=== PATIENT | female | born 1930 | race Caucasian/White ===

== ENCOUNTER 2016-08-18 13:28 | Inpatient (IN) | payer OTHER, BC ==
[2016-08-18 14:06] VITALS: BMI 24.7
[2016-08-18] MEDS ORDERED: SODIUM CHLORIDE 1,000 ML IV STA (14:11)
[2016-08-18] MEDS ORDERED: ACETAMINOPHEN 1000 MG/100 ML VIAL (NON FORMULARY) IVPB ONE (14:13)
[2016-08-18] MEDS ORDERED: ACETAMINOPHEN INJECTION 100 ML IVPB ONE (14:16)
[2016-08-18 14:30] LABS: VENOUS BLOOD GAS HCO3 28.2 meq/L (19-25); VENOUS PH 7.49 (7.32-7.42)
--- NOTE | 2016-08-18 14:34 | PDOC ---
History of Present Illness - General Chief Complaint: Diarrhea Stated Complaint: DIARRHEA, FEVER Time Seen by Provider: 08/18/16 13:59 History Source: Care Provider, Old Records Exam Limitations: Dementia, Other (nonverbal) - History of Present Illness Initial Comments: 08/18/16 14:30 86-year-old female with history of hypertension, CVA, and history of pneumonia brought in by home health aide for diarrhea for 2-3 days and now fever diagnosed by visiting nurse services today. Patient was last in her usual state of health around for 5 days ago, home health aide was away and upon return noted and was having nonbloody diarrhea and was generally weaker than her baseline and more asleep. Today, had VNS visit and was found to be febrile and referred to the emergency department. Positive cough but nonproductive. Past History - Past Medical History Allergies/Adverse Reactions: Allergies Allergy/AdvReac Type Severity Reaction Status Date / Time Penicillins Allergy Verified 08/18/16 14:10 Home Medications: Ambulatory Orders Albuterol 2.5/Ipratropium 0.5 [Duoneb -] 1 neb NEB TIDR vial 11/27/14 Montelukast Na [Singulair -] 10 mg PO HS tablet 09/21/15 Folic Acid/Mv,Fe,Min [Centrum Chewable Tablet] 1 each PO DAILY 08/18/16 Melatonin 5 mg PO HS 08/18/16 Prednisone [Deltasone -] 5 mg PO DAILY 08/18/16 Sennosides [Senna -] 1 tab PO DAILY PRN 08/18/16 Trazodone HCl [Desyrel -] 50 mg PO HS 08/18/16 Anemia: Yes Asthma: Yes Cancer: No CVA: No Dementia: Yes Diabetes: Yes Disorders: No Hypercholesterolemia: No HIV: Yes Liver Disease: No Seizures: No Thyroid Disease: No - Surgical History Appendectomy: No Cholecystectomy: No Orthopedic Surgery: No - Psycho/Social/Smoking Cessation Hx Anxiety: No Suicidal Ideation: No Smoking Status: No Smoking History: Unknown if ever smoked Have you smoked in the past 12 months: No Number of Cigarettes Smoked Daily: 0 Information on smoking cessation initiated: No Hx Alcohol Use: No Drug/Substance Use Hx: No Substance Use Type: None Hx Substance Use Treatment: No Review of Systems - Review of Systems Able to Perform ROS?: No (nonverbal) *Physical Exam - Vital Signs Last Vital Signs Temp Pulse Resp BP Pulse Ox 101.1 F H 110 H 18 117/87 92 L 08/18/16 13:30 08/18/16 13:30 08/18/16 13:30 08/18/16 13:30 08/18/16 13:30 - Physical Exam Comments: 08/18/16 14:35 Fever, tachycardia, hypoxia GENERAL: nonverbal, alert in stretcher HEAD: Normal with no signs of trauma. EYES: PERRL, EOMI, sclera anicteric, conjunctiva clear with no pallor. ENT: oropharynx clear without exudates. Dry mucous membranes. NECK: Normal range of motion, supple without lymphadenopathy, JVD, or masses. LUNGS: decreased BS L base. HEART: Regular rate and rhythm, normal S1 and S2 without murmur or rub. ABDOMEN: Soft/nontender/nondistended. BS wnl. No guarding or rebound. No palpable masses. No hepatosplenomegaly. EXTREMITIES: LROM throughout. NEUROLOGICAL: limited but nonfocal PSYCH: Normal mood, normal affect. SKIN: Warm, Dry, no rashes or lesions noted. Heart Score/ECG Review #1 ECG reviewed & interpreted by me at: 13:48 General ECG Interpretation: Sinus Rhythm (tachycardia at 110.), Normal Intervals (qtc 446), No acute ischemic changes ED Treatment Course - LABORATORY CBC & Chemistry Diagram: 08/18/16 14:30 08/18/16 14:30 Medical Decision Making - Critical Care Time Total Critical Care Time (minutes): 30 Critical Care Statement: The care of this patient involved high complexity decision making to prevent further life threatening deterioration of the patient 's condition and/or to evalute & treat vital organ system(s) failure or risk of failure. - Medical Decision Making 08/18/16 14:40 86-year-old female with history of CVA, hypertension, pneumonia presents with diarrhea and now fever today. Meet sepsis criteria here, possible pneumonia, no recent admissions since 2016. Sepsis protocol initiated. EKG, chest x-ray Antipyretics, IV fluids Antibiotics Admission 08/18/16 15:37 Leukocytosis of 18, left shift but no bands. Chemistries within normal limits, troponin negative, lactate 1.5. Urinalysis clear. Chest x-ray suspicious for right lower lobe infiltrate. Will cover with Levaquin given penicillin ALLERGY. Clinically unchanged, will proceed with admission, Dr. Harris called. 08/18/16 15:50 Accepted for inpatient med/surg by Dr. Harris. *DC/Admit/Observation/Transfer Diagnosis at time of Disposition: Sepsis Qualifiers: Sepsis type: sepsis due to unspecified organism Qualified Code(s): A41.9 - Sepsis, unspecified organism Pneumonia Qualifiers: Pneumonia type: due to unspecified organism Laterality: right Lung location: lower lobe of lung Qualified Code(s): J18.1 - Lobar pneumonia, unspecified organism - Discharge Dispostion Condition at time of disposition: Fair Admit: Yes
[2016-08-18 14:56] LABS: BASOPHIL 0.1 % (0-2.0); EOSINOPHIL 0.1 % (0-4.5); MCH 29.1 pg (25.7-33.7); MCHC 32.7 g/dl (32.0-36.0); MEAN PLT VOLUME 9.5 fl (7.5-11.1); NEUTROPHILS 89.7 % (42.8-82.8); PLATELET COUNT 214 K/MM3 (134-434); RDW 16.1 % (11.6-15.6); WHITE BLOOD COUNT 18.7 K/mm3 (4.0-10.0)
[2016-08-18 15:13] LABS: URINE APPEARANCE SLCLOUDY; URINE BILIRUBIN NEGATIVE (NEGATIVE); URINE COLOR DKYELLOW; URINE GLUCOSE (UA) NEGATIVE (NEGATIVE); URINE KETONE NEGATIVE (NEGATIVE); URINE NITRITE NEGATIVE (NEGATIVE); URINE UROBILINOGEN NEGATIVE E.U./dl (0.2-1.0)
[2016-08-18 15:16] LABS: ALBUMIN 2.9 g/dl (3.4-5.0); ANION GAP 10 (8-16); BILIRUBIN,TOTAL 0.5 mg/dL (0.2-1.0); CALCIUM 8.8 mg/dL (8.5-10.1); CO2 29 mmol/L (21-32); COCKROFT - GAULT 58.8965; CREATININE 0.7 mg/dL (0.55-1.02); GLUCOSE,RANDOM 149 mg/dL (74-106); SGOT/AST 79 U/L (15-37); SGPT/ALT 88 U/L (12-78); TOT PROT 6.5 g/dl (6.4-8.2)
[2016-08-18 15:19] LABS: ALK PHOS 89 U/L (45-117); TROPONIN I < 0.02 ng/ml (0.00-0.05)
[2016-08-18 15:22] LABS: INR 1.16 (0.82-1.09); PROTHROMBIN TIME (PATIENT) 12.8 SEC (9.98-11.88)
[2016-08-18 15:24] LABS: URINE BLOOD 2+ (NEGATIVE); URINE LEUK ESTERASE TRACE (NEGATIVE); URINE PROTEIN 1+ (NEGATIVE)
[2016-08-18 15:25] LABS: ACTIVATED PTT 24.4 SECONDS (26.9-34.4)
[2016-08-18 15:30] LABS: GRANULAR CASTS 2 /lpf; URINE HYALINE CAST 2 /lpf; URINE MUCUS FEW; URINE RBC 40 /hpf (0-3); URINE WBC 7 /hpf (3-5)
[2016-08-18] MEDS ORDERED: LEVOFLOXACIN 500 MG IVPB 100 ML IVPB ONE ×2 (15:36→15:45)
[2016-08-18] MEDS: ALBUTEROL SO4 2.5/IPRATROPIUM 0.5 INH SOL 3 ML VIAL.NEB. NEB SCH (22:00)
[2016-08-18] MEDS: SODIUM CHLORIDE 0.45% 1,000 ML IV SCH (22:16)
[2016-08-18] MEDS: HEPARIN NA (PORCINE) 5,000 UNITS/ML 1ML VIAL SQ SCH (22:23)
[2016-08-19] MEDS: METRONIDAZOLE PREMIXED IVPB 50 ML IVPB SCH ×3 (01:18→18:32)
[2016-08-19] MEDS: methylPREDNISolone NA SUCC 40 MG/1 ML VIAL IVPB SCH ×2 (01:59→09:40)
[2016-08-19] MEDS ORDERED: ACETAMINOPHEN 325 MG TABLET (FP) PO PRN (05:56)
[2016-08-19] MEDS: ALBUTEROL SO4 2.5/IPRATROPIUM 0.5 INH SOL 3 ML VIAL.NEB. NEB SCH ×3 (06:10→22:04)
[2016-08-19 07:53] LABS: MCH 29.2 pg (25.7-33.7); MCHC 32.7 g/dl (32.0-36.0); MEAN CELL VOLUME 89.3 fl (80-96); MEAN PLT VOLUME 9.1 fl (7.5-11.1); PLATELET COUNT 165 K/MM3 (134-434); RDW 16.1 % (11.6-15.6); WHITE BLOOD COUNT 13.1 K/mm3 (4.0-10.0)
[2016-08-19 08:20] LABS: ALBUMIN 2.7 g/dl (3.4-5.0); ANION GAP 9 (8-16); CALCIUM 8.2 mg/dL (8.5-10.1); CO2 28 mmol/L (21-32); CREATININE 0.5 mg/dL (0.55-1.02); GLUCOSE,RANDOM 154 mg/dL (74-106); MAGNESIUM 2.4 mg/dL (1.8-2.4); SGOT/AST 47 U/L (15-37); SGPT/ALT 67 U/L (12-78)
[2016-08-19 08:31] LABS: ALK PHOS 74 U/L (45-117); BILIRUBIN,TOTAL 0.5 mg/dL (0.2-1.0); THYROID STIMULATING HORMONE 0.44 uIU/ml (0.358-3.74)
[2016-08-19] MEDS: LEVOFLOXACIN 250 MG IVPB 50 ML IVPB SCH (09:41)
[2016-08-19] MEDS: HEPARIN NA (PORCINE) 5,000 UNITS/ML 1ML VIAL SQ SCH ×2 (09:41→22:37)
--- NOTE | 2016-08-19 16:30 | HP ---
Admitting History and Physical - Primary Care Physician PCP: Israel Harris - Admission Chief Complaint: none History of Present Illness: BIBA from home (where she receives total care 24 x 7) for changes in MS and increased lethargy. due to severe cognitive impairment, she is unable to communicate her condition. Med Hx is (+) for DM (diet controlled); old RA (now inactive); OA; Asthma; s/p PNA. She is home ridden and is totally dependant in her daily living activities. She lives in the community. History Source: Medical Record Limitations to Obtaining History: Dementia - Past Medical History METAL MIXER: Yes: Dementia Cardiovascular: Yes: Other (hx of edema) Pulmonary: Yes: Asthma, Bronchitis Gastrointestinal: Yes: Hiatal Hernia, Other (feeding problems) Heme/Onc: Yes: Anemia Psych: Yes: Anxiety, Depression Musculoskeletal: Yes: Osteoarthritis Rheumatology: Yes: Rheumatoid Arthritis (in remission [on no meds]) Endocrine: Yes: Diabetes Mellitus (borderline) - Smoking History Smoking history: Unknown if ever smoked Have you smoked in the past 12 months: No Aproximately how many cigarettes per day: 0 - Alcohol/Substance Use Hx Alcohol Use: No History of Substance Use: reports: None - Social History Usual Living Arrangement: Yes: Alone ADL: Support Services History of Recent Travel: No Home Medications - Allergies Allergies/Adverse Reactions: Allergies Allergy/AdvReac Type Severity Reaction Status Date / Time Penicillins Allergy Verified 08/18/16 14:10 - Home Medications Home Medications: Ambulatory Orders Albuterol 2.5/Ipratropium 0.5 [Duoneb -] 1 neb NEB TIDR vial 11/27/14 Montelukast Na [Singulair -] 10 mg PO HS tablet 09/21/15 Folic Acid/Mv,Fe,Min [Centrum Chewable Tablet] 1 each PO DAILY 08/18/16 Melatonin 5 mg PO HS 08/18/16 Prednisone [Deltasone -] 5 mg PO DAILY 08/18/16 Sennosides [Senna -] 1 tab PO DAILY PRN 08/18/16 Trazodone HCl [Desyrel -] 50 mg PO HS 08/18/16 Physical Examination Vital Signs: Vital Signs Temperature 99.1 F 08/19/16 15:39 Pulse Rate 95 H 08/19/16 15:39 Respiratory Rate 18 08/19/16 15:39 Blood Pressure 96/57 08/19/16 15:39 O2 Sat by Pulse Oximetry (%) 98 08/19/16 14:12 Findings/Remarks: skin--no acute lesions head--NC eyes--midline; symmetric gaze and able to follow in all planes oral--unable to have her open mouth (clenches) neck--completely rigid; and immobile lungs--distant; unlabored heart--RR breasts--atrophic; no dom masses abd--soft, BS+, Nt, ND ext--no edema; rigid; increased tone; limited ROM; diffusely contracted; DPs faint; degen changes neuro--rousable to touch; able to visually acknowledge others, does not follow commands; does not respond verbally or otherwise, unable to move purposefully or otherwise Labs: CBC, BMP 08/19/16 06:00 08/19/16 06:00 Imaging - Results Chest X-ray: Report Reviewed EKG: Report Reviewed Assessment/Plan 86 y/o debilitated and totally dependant F in a veg state; who was admitted for Fever; leukocytosis and PNA. > Pna/sepsis--as described by CXR which would account for SX as described. PLAN : IV ABs; IV Steroids: Neb Tx > Asthma--no definite exacerbation; but will cont Neb Tx; will taper IV steroids > DM--not eating at present (does not allow to be fed); may need IV nutritional support but will wait at least 1 more day > severe dementia--advanced with severe cognitive impairment & complete dependance of all ADLs > elevated LFts--mild; now seem to be normalizing ~~~~~~~~~~~~~~~~~~~~~~~~~~~~~~~~~~~ Dr Harris
--- NOTE | 2016-08-19 17:29 | EKG ---
Test Reason : Blood Pressure : / mmHG Vent. Rate : 110 BPM Atrial Rate : 110 BPM P-R Int : 128 ms QRS Dur : 070 ms QT Int : 330 ms P-R-T Axes : 018 037 049 degrees QTc Int : 446 ms SINUS TACHYCARDIA OTHERWISE NORMAL ECG WHEN COMPARED WITH ECG OF 18-SEP-2015 18:48, NO SIGNIFICANT CHANGE WAS FOUND Confirmed by ANGÉLICA STEWART MD ([id number]) on 08/19/2016 5:29:24 PM Referred By: Confirmed By:ANGÉLICA STEWART MD
[2016-08-19] MEDS ORDERED: PT OWN MED DRAWER 7, Y5N ONE (18:09)
[2016-08-19] MEDS: SODIUM CHLORIDE 0.45% 1,000 ML IV SCH (18:32)
[2016-08-20] MEDS ORDERED: PT OWN MED DRAWER 7, Y5N ONE ×3 (03:21→21:27)
[2016-08-20] MEDS: ALBUTEROL SO4 2.5/IPRATROPIUM 0.5 INH SOL 3 ML VIAL.NEB. NEB SCH ×3 (06:35→22:09)
[2016-08-20 07:55] LABS: MCH 29.1 pg (25.7-33.7); MCHC 32.5 g/dl (32.0-36.0); MEAN CELL VOLUME 89.4 fl (80-96); MEAN PLT VOLUME 9.9 fl (7.5-11.1); PLATELET COUNT 189 K/MM3 (134-434); RDW 15.6 % (11.6-15.6); WHITE BLOOD COUNT 12.3 K/mm3 (4.0-10.0)
[2016-08-20 08:56] LABS: CALCIUM 8.3 mg/dL (8.5-10.1); COCKROFT - GAULT 97.2825; CREATININE 0.4 mg/dL (0.55-1.02)
[2016-08-20] MEDS: METRONIDAZOLE PREMIXED IVPB 50 ML IVPB SCH ×2 (09:29→18:39)
[2016-08-20] MEDS: methylPREDNISolone NA SUCC 40 MG/1 ML VIAL IVPB SCH (09:33)
[2016-08-20] MEDS: LEVOFLOXACIN 250 MG IVPB 50 ML IVPB SCH (09:33)
[2016-08-20] MEDS: HEPARIN NA (PORCINE) 5,000 UNITS/ML 1ML VIAL SQ SCH ×2 (09:33→22:36)
[2016-08-20] MEDS: SODIUM CHLORIDE 0.45% 1,000 ML IV SCH (18:39)
--- NOTE | 2016-08-20 18:52 | PN ---
Progress Note (short form) - Note Progress Note: Current Medications Acetaminophen (Tylenol -) 650 mg PO Q6H PRN PRN Reason: FEVER OR PAIN Albuterol/Ipratropium (Duoneb -) 1 amp NEB TIDR [facility] Last Admin: 08/20/16 13:51 Dose: 1 amp Heparin Sodium (Porcine) (Heparin -) 5,000 unit SQ BID [facility] Last Admin: 08/20/16 09:33 Dose: 5,000 unit Levofloxacin (Levaquin 250 Mg Premixed Ivpb -) 50 mls @ 50 mls/hr IVPB DAILY [facility] Last Admin: 08/20/16 09:33 Dose: 50 mls/hr Metronidazole (Flagyl 250mg Premixed Ivpb -) 50 mls @ 50 mls/hr IVPB Q8H-IV [facility] Last Admin: 08/20/16 18:39 Dose: 50 mls/hr Dextrose/Sodium Chloride (D5-1/4ns -) 1,000 mls @ 42 mls/hr IV ASDIR [facility] Methylprednisolone Sodium Succinate (Solu-Medrol -) 40 mg IVPB DAILY [facility] Last Admin: 08/20/16 09:33 Dose: 40 mg Montelukast Sodium (Singulair -) 10 mg PO HS [facility] Laboratory Results - last 24 hr 08/20/16 08/20/16 08/20/16 06:00 06:00 06:00 WBC 12.3 H RBC 4.26 Hgb 12.4 Hct 38.1 MCV 89.4 MCHC 32.5 RDW 15.6 Plt Count 189 MPV 9.9 Sodium 148 H Potassium 3.8 Chloride 113 H Carbon Dioxide 24 Anion Gap 11 BUN 26 H Creatinine 0.4 L Random Glucose 103 D Hemoglobin A1c % 6.1 H D Calcium 8.3 L Vital Signs Period Temp Pulse Resp BP Sys/Ford Pulse Ox Last 24 Hr 98.8 F-99.3 F 81-90 16-20 103-126/61-68 95-96 CC; non communicative ```````````````````````````` skin--no acute lesions heart--RR lungs--bilat clear; unlabored abd--soft, NT neuro--severe cogn impairement; does not interact; does not make needs known; does not move `````````````````````````````````````````````` Summ > Pna/sepsis--as described by CXR which would account for SX as described. 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 Needs total care. ~~~~~~~~~~~~~~~~~~~ Dr Harris
[2016-08-20] MEDS: DEXTROSE 5%-0.2% SALINE - 1,000 ML IV SCH (22:35)
[2016-08-20] MEDS: MONTELUKAST NA 5 MG TAB.CHEW PO SCH (22:45)
[2016-08-21] MEDS ORDERED: PT OWN MED DRAWER 7, Y5N ONE ×3 (01:09→21:56)
[2016-08-21] MEDS: METRONIDAZOLE PREMIXED IVPB 50 ML IVPB SCH ×3 (02:15→17:05)
[2016-08-21] MEDS: ALBUTEROL SO4 2.5/IPRATROPIUM 0.5 INH SOL 3 ML VIAL.NEB. NEB SCH ×3 (06:45→23:39)
[2016-08-21 07:39] LABS: BASOPHIL 0.2 % (0-2.0); MCH 29.2 pg (25.7-33.7); MCHC 32.9 g/dl (32.0-36.0); MEAN CELL VOLUME 88.7 fl (80-96); MEAN PLT VOLUME 10.1 fl (7.5-11.1); NEUTROPHILS 80.3 % (42.8-82.8); PLATELET COUNT 162 K/MM3 (134-434); RDW 15.6 % (11.6-15.6); WHITE BLOOD COUNT 9.4 K/mm3 (4.0-10.0)
[2016-08-21 08:00] LABS: CALCIUM 8.5 mg/dL (8.5-10.1)
[2016-08-21 08:01] LABS: COCKROFT - GAULT 129.71; CREATININE 0.3 mg/dL (0.55-1.02)
[2016-08-21] MEDS: HEPARIN NA (PORCINE) 5,000 UNITS/ML 1ML VIAL SQ SCH ×2 (09:13→22:55)
[2016-08-21] MEDS: methylPREDNISolone NA SUCC 40 MG/1 ML VIAL IVPB SCH (09:13)
[2016-08-21] MEDS: LEVOFLOXACIN 250 MG IVPB 50 ML IVPB SCH (09:13)
--- NOTE | 2016-08-21 15:36 | PN ---
Progress Note (short form) - Note Progress Note: Current Medications Acetaminophen (Tylenol -) 650 mg PO Q6H PRN PRN Reason: FEVER OR PAIN Albuterol/Ipratropium (Duoneb -) 1 amp NEB TIDR [facility] Last Admin: 08/21/16 14:27 Dose: 1 amp Heparin Sodium (Porcine) (Heparin -) 5,000 unit SQ BID [facility] Last Admin: 08/21/16 09:13 Dose: 5,000 unit Levofloxacin (Levaquin 250 Mg Premixed Ivpb -) 50 mls @ 50 mls/hr IVPB DAILY [facility] Last Admin: 08/21/16 09:13 Dose: 50 mls/hr Metronidazole (Flagyl 250mg Premixed Ivpb -) 50 mls @ 50 mls/hr IVPB Q8H-IV [facility] Last Admin: 08/21/16 09:13 Dose: 50 mls/hr Dextrose/Sodium Chloride (D5-1/4ns -) 1,000 mls @ 42 mls/hr IV ASDIR [facility] Last Admin: 08/20/16 22:35 Dose: 42 mls/hr Methylprednisolone Sodium Succinate (Solu-Medrol -) 40 mg IVPB DAILY [facility] Last Admin: 08/21/16 09:13 Dose: 40 mg Montelukast Sodium (Singulair -) 10 mg PO HS [facility] Last Admin: 08/20/16 22:45 Dose: 10 mg Laboratory Results - last 24 hr 08/21/16 08/21/16 06:00 06:00 WBC 9.4 RBC 3.87 Hgb 11.3 Hct 34.3 MCV 88.7 MCHC 32.9 RDW 15.6 Plt Count 162 MPV 10.1 Neutrophils % 80.3 Lymphocytes % 12.5 D Monocytes % 7.0 D Eosinophils % 0.0 D Basophils % 0.2 Sodium 147 H Potassium 3.6 Chloride 110 H Carbon Dioxide 26 Anion Gap 11 BUN 22 H Creatinine 0.3 L D Random Glucose 106 Calcium 8.5 Vital Signs Temperature 97.8 F 08/21/16 14:09 Pulse Rate 86 08/21/16 14:09 Respiratory Rate 20 08/21/16 14:09 Blood Pressure 109/64 08/21/16 14:09 O2 Sat by Pulse Oximetry (%) 96 08/21/16 09:00 CC; non communicative ```````````````````````````` skin--NL color heart--RR lungs--bilat clear; unlabored abd--soft, NT neuro--severe cogn impairement; does not interact; does not make needs known; does not move `````````````````````````````````````````````` Summ > Pna/sepsis--as described by CXR which would account for SX as described. 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 Needs total care. > sacral decub--very early stage; topical applied. ~~~~~~~~~~~~~~~~~~~ Dr Harris
[2016-08-21] MEDS: DEXTROSE 5%-0.2% SALINE - 1,000 ML IV SCH ×2 (18:02→23:17)
[2016-08-21] MEDS: MONTELUKAST NA 5 MG TAB.CHEW PO SCH (22:56)
[2016-08-22] MEDS: METRONIDAZOLE PREMIXED IVPB 50 ML IVPB SCH ×2 (01:14→12:50)
[2016-08-22] MEDS: ALBUTEROL SO4 2.5/IPRATROPIUM 0.5 INH SOL 3 ML VIAL.NEB. NEB SCH ×3 (06:11→22:30)
[2016-08-22 08:14] LABS: CALCIUM 8.5 mg/dL (8.5-10.1)
[2016-08-22 08:16] LABS: COCKROFT - GAULT 97.2825; CREATININE 0.4 mg/dL (0.55-1.02)
[2016-08-22] MEDS: HEPARIN NA (PORCINE) 5,000 UNITS/ML 1ML VIAL SQ SCH ×2 (12:04→22:42)
[2016-08-22] MEDS: methylPREDNISolone NA SUCC 40 MG/1 ML VIAL IVPB SCH (12:05)
[2016-08-22] MEDS: LEVOFLOXACIN 250 MG IVPB 50 ML IVPB SCH (12:05)
--- NOTE | 2016-08-22 13:37 | PN ---
Progress Note (short form) - Note Progress Note: Current Medications Acetaminophen (Tylenol -) 650 mg PO Q6H PRN PRN Reason: FEVER OR PAIN Albuterol/Ipratropium (Duoneb -) 1 amp NEB TIDR [facility] Last Admin: 08/22/16 06:11 Dose: 1 amp Heparin Sodium (Porcine) (Heparin -) 5,000 unit SQ BID [facility] Last Admin: 08/22/16 12:04 Dose: 5,000 unit Levofloxacin (Levaquin 250 Mg Premixed Ivpb -) 50 mls @ 50 mls/hr IVPB DAILY [facility] Last Admin: 08/22/16 12:05 Dose: 50 mls/hr Metronidazole (Flagyl 250mg Premixed Ivpb -) 50 mls @ 50 mls/hr IVPB Q8H-IV [facility] Last Admin: 08/22/16 12:50 Dose: 50 mls/hr Dextrose/Sodium Chloride (D5-1/4ns -) 1,000 mls @ 42 mls/hr IV ASDIR [facility] Last Admin: 08/21/16 23:17 Dose: 42 mls/hr Methylprednisolone Sodium Succinate (Solu-Medrol -) 20 mg IVPB DAILY [facility] Last Admin: 08/22/16 12:05 Dose: 20 mg Montelukast Sodium (Singulair -) 10 mg PO HS [facility] Last Admin: 08/21/16 22:56 Dose: 10 mg Laboratory Results - last 24 hr 08/22/16 06:00 Sodium 146 H Potassium 4.9 D Chloride 108 H Carbon Dioxide 31 Anion Gap 7 L BUN 16 D Creatinine 0.4 L D Random Glucose 115 H Calcium 8.5 Vital Signs Temperature 98.1 F 08/22/16 09:40 Pulse Rate 65 08/22/16 09:58 Respiratory Rate 18 08/22/16 09:40 Blood Pressure 131/51 08/22/16 09:40 O2 Sat by Pulse Oximetry (%) 97 08/22/16 09:58 CC; non communicative ```````````````````````````` skin--NL color heart--RR lungs--bilat clear; unlabored abd--soft, NT neuro--severe cogn impairement; does not interact; does not make needs known; does not move `````````````````````````````````````````````` Summ > Pna/sepsis--as described by CXR which now shows LLL haziness; but is clinically improved. 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 Needs total care. > sacral decub--very early stage; topical applied. ~~~~~~~~~~~~~~~~~~~ Dr Harris
[2016-08-22] MEDS: MONTELUKAST NA 5 MG TAB.CHEW PO SCH (22:42)
[2016-08-22] MEDS: DEXTROSE 5%-0.2% SALINE - 1,000 ML IV SCH (23:25)
[2016-08-23] MEDS: METRONIDAZOLE PREMIXED IVPB 50 ML IVPB SCH ×4 (02:40→19:44)
[2016-08-23] MEDS: ALBUTEROL SO4 2.5/IPRATROPIUM 0.5 INH SOL 3 ML VIAL.NEB. NEB SCH ×3 (06:17→21:50)
[2016-08-23 07:59] LABS: CALCIUM 8.2 mg/dL (8.5-10.1); COCKROFT - GAULT 129.71; CREATININE 0.3 mg/dL (0.55-1.02)
[2016-08-23] MEDS: HEPARIN NA (PORCINE) 5,000 UNITS/ML 1ML VIAL SQ SCH ×2 (10:30→22:09)
[2016-08-23] MEDS: LEVOFLOXACIN 250 MG IVPB 50 ML IVPB SCH (10:30)
[2016-08-23] MEDS: methylPREDNISolone NA SUCC 40 MG/1 ML VIAL IVPB SCH (10:31)
--- NOTE | 2016-08-23 15:27 | PN ---
Progress Note (short form) - Note Progress Note: Current Medications Acetaminophen (Tylenol -) 650 mg PO Q6H PRN PRN Reason: FEVER OR PAIN Albuterol/Ipratropium (Duoneb -) 1 amp NEB TIDR [facility] Last Admin: 08/23/16 14:10 Dose: 1 amp Heparin Sodium (Porcine) (Heparin -) 5,000 unit SQ BID [facility] Last Admin: 08/23/16 10:30 Dose: 5,000 unit Levofloxacin (Levaquin 250 Mg Premixed Ivpb -) 50 mls @ 50 mls/hr IVPB DAILY [facility] Last Admin: 08/23/16 10:30 Dose: 50 mls/hr Metronidazole (Flagyl 250mg Premixed Ivpb -) 50 mls @ 50 mls/hr IVPB Q8H-IV [facility] Last Admin: 08/23/16 10:26 Dose: 50 mls/hr Dextrose/Sodium Chloride (D5-1/4ns -) 1,000 mls @ 42 mls/hr IV ASDIR [facility] Last Admin: 08/22/16 23:25 Dose: 42 mls/hr Methylprednisolone Sodium Succinate (Solu-Medrol -) 20 mg IVPB DAILY [facility] Last Admin: 08/23/16 10:31 Dose: 20 mg Montelukast Sodium (Singulair -) 10 mg PO HS [facility] Last Admin: 08/22/16 22:42 Dose: 10 mg Laboratory Results - last 24 hr 08/23/16 05:35 Sodium 142 Potassium 4.6 Chloride 102 Carbon Dioxide 31 Anion Gap 9 BUN 12 D Creatinine 0.3 L D Random Glucose 102 Calcium 8.2 L Vital Signs Temperature 97.9 F 08/23/16 10:25 Pulse Rate 86 08/23/16 14:10 Respiratory Rate 18 08/23/16 10:25 Blood Pressure 119/71 08/23/16 10:25 O2 Sat by Pulse Oximetry (%) 98 08/23/16 14:10 CC; non communicative ```````````````````````````` skin--NL color heart--RR lungs--bilat clear; unlabored abd--soft, NT neuro--severe cogn impairement; awake and calm appearing; does not interact; does not make needs known; does not move any of her limbs `````````````````````````````````````````````` Summ > Pna/sepsis--as described by CXR which now shows LLL haziness; but is clinically improved. 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 Needs total care. > sacral decub--very early stage; topical adhesive applied. ~~~~~~~~~~~~~~~~~~~ Dr Harris
[2016-08-23] MEDS ORDERED: PT OWN MED DRAWER 7, Y5N ONE (21:41)
[2016-08-23] MEDS: DEXTROSE 5%-0.2% SALINE - 1,000 ML IV SCH (22:09)
[2016-08-23] MEDS: MONTELUKAST NA 5 MG TAB.CHEW PO SCH (22:09)
[2016-08-24] MEDS: DEXTROSE 5%-0.2% SALINE - 1,000 ML IV SCH ×2 (01:28→20:30)
[2016-08-24] MEDS: ALBUTEROL SO4 2.5/IPRATROPIUM 0.5 INH SOL 3 ML VIAL.NEB. NEB SCH ×3 (06:46→21:32)
[2016-08-24] MEDS ORDERED: predniSONE 5 MG/5 ML ORAL SOLN- UNIT-DOSE CUP PO ONE (10:00)
[2016-08-24] MEDS: LEVOFLOXACIN 250 MG TABLET (FP) PO SCH (10:18)
[2016-08-24] MEDS: HEPARIN NA (PORCINE) 5,000 UNITS/ML 1ML VIAL SQ SCH ×2 (10:18→22:14)
--- NOTE | 2016-08-24 17:17 | DS ---
Physical Examination Vital Signs: Vital Signs Temperature 98.6 F 08/24/16 15:42 Pulse Rate 78 08/24/16 15:42 Respiratory Rate 20 08/24/16 15:42 Blood Pressure 105/65 08/24/16 15:42 O2 Sat by Pulse Oximetry (%) 95 08/24/16 08:57 Constitutional: Yes: No Distress Eyes: Yes: Conjunctiva Clear Neck: Yes: Decreased ROM Cardiovascular: Yes: Regular Rate and Rhythm Respiratory: Yes: Diminished Gastrointestinal: Yes: Normal Bowel Sounds, Soft Musculoskeletal: Yes: Joint Stiffness Edema: No Integumentary: Yes: Pressure Ulcer (stage 2 buttock) Neurological: Yes: Alert, Confusion, Other (funct quadroplegia) Psychiatric: Yes: Other (awake, but cognitively impaired) Labs: CBC, BMP 08/21/16 06:00 08/23/16 05:35 Discharge Summary Reason For Visit: PNEUMONIA; SEPSIS Current Active Problems Pneumonia (Acute) Sepsis (Acute) asthma DM funct quadroplegia dementia; advanced decub sacrum stage 2 insomnia Hospital Course: admitted for fever; resp distress, leukocytosis. her degree of impairment would not provide us with any history of how she was feeling. She was placed on IV antibuiotics and fluids; she defervesced and the white cell count normalized. Her breathing becaume less labored; and steroids were tapered. The remaining problem was that of poor PO intake and the presence of sacral pressure sores; early stage. This was reported to son (marivel Merchant) who stated that she had a fulltime attendent in place at home 24 Hrs x 7. Also VNS would be called to provide added care & supervision. He was made aware of her feeding difficulty and sstated that no form of articial feeding should be put in place in accordance to her known wishes. Plan is for her to cont the antibiotic for another 7 days; and resume all other of her usual meds. Condition: Fair - Instructions Diet, Activity, Other Instructions: as tolerated Disposition: HOME - Home Medications Comprehensive Discharge Medication List: Ambulatory Orders Albuterol 2.5/Ipratropium 0.5 [Duoneb -] 1 neb NEB TIDR vial 11/27/14 Montelukast Na [Singulair -] 10 mg PO HS tablet 09/21/15 Folic Acid/Mv,Fe,Min [Centrum Chewable Tablet] 1 each PO DAILY 08/18/16 Melatonin 5 mg PO HS 08/18/16 Prednisone [Deltasone -] 5 mg PO DAILY 08/18/16 Sennosides [Senna -] 1 tab PO DAILY PRN 08/18/16 Trazodone HCl [Desyrel -] 50 mg PO HS 08/18/16
[2016-08-24] MEDS ORDERED: PT OWN MED DRAWER 7, Y5N ONE (21:36)
[2016-08-24] MEDS: MONTELUKAST NA 5 MG TAB.CHEW PO SCH (22:14)
[2016-08-25] MEDS: DEXTROSE 5%-0.2% SALINE - 1,000 ML IV SCH (00:41)
[2016-08-25] MEDS: ALBUTEROL SO4 2.5/IPRATROPIUM 0.5 INH SOL 3 ML VIAL.NEB. NEB SCH ×2 (07:00→14:05)
[2016-08-25] MEDS: LEVOFLOXACIN 250 MG TABLET (FP) PO SCH (09:18)
[2016-08-25] MEDS: HEPARIN NA (PORCINE) 5,000 UNITS/ML 1ML VIAL SQ SCH (09:18)
[2016-08-25 10:54] VITALS: BP 107/62; PULSE 81; TEMP 97.6
== END 2016-08-25 15:16 | disposition home or self-care (01) | DRG 871 ==
LOC: JER 13:28 → JERBED 15:51 → J7W 17:20
PROVIDERS: ADMIT Internal Medicine; ATTEND Internal Medicine
DX: A41.9 Sepsis, unspecified organism (principal); J18.9 Pneumonia, unspecified organism; R53.2 Functional quadriplegia; E87.0 Hyperosmolality and hypernatremia; J45.909 Unspecified asthma, uncomplicated; E11.9 Type 2 diabetes mellitus without complications; F03.90 Unspecified dementia, unspecified severity, without behavioral disturbance, psychotic disturbance, mood disturbance, and anxiety; L89.302 Pressure ulcer of unspecified buttock, stage 2; L89.152 Pressure ulcer of sacral region, stage 2; G47.00 Insomnia, unspecified; G31.84 Mild cognitive impairment of uncertain or unknown etiology
CPT/HCPCS: 36415; 71010-TC; 80048; 80053; 81003; 81015; 82550; 82803; 83036; 83605; 83735; 84443; 84484; 85025; 85027; 85610; 85730; 86850; 86900; 86901; 87040; 87086; 93005; 93010; 94640; 99285-25; J1644

== ENCOUNTER 2017-07-10 12:55 | Inpatient (IN) | payer OTHER ==
--- NOTE | 2017-07-10 13:17 | PDOC ---
History of Present Illness - General History Source: Care Provider, Family Exam Limitations: Dementia - History of Present Illness Initial Comments: 07/10/17 13:28 The patient is a 87 year old female, accompanied by son and caregiver, with a significant past medical history of dementia, asthma, hypertension, diabetes mellitus, hyperlipidemia, prior pneumonias and UTIs, rheumatoid arthritis, who presents to the emergency department with, non productive cough and wheezing beginning this morning. As per the patients caregiver, she noticed the patient had a dry cough and wheezing and reports giving the patient 2 nebulizer treatments with minimal relief. She states the patient received a flu shot earlier in the year and denies any sick contacts. No reported fevers, chills, nausea, vomiting, or diarrhea. Patient is unable to provide additional history second to dementia (pt. is nonverbal baseline status secondary to dementia since 2001 as per son). Allergies: Penicillins Primary Care Physician: Dr. Harris <Ernesto Robledo - Last Filed: 07/10/17 14:10> <Mira Kwon - Last Filed: 07/10/17 16:55> - General Stated Complaint: WHEEZING Time Seen by Provider: 07/10/17 13:10 Past History <Ernesto Robledo - Last Filed: 07/10/17 14:10> - Past Medical History Anemia: Yes Asthma: Yes Cancer: No CVA: Yes Dementia: Yes Diabetes: Yes Disorders: No HTN: Yes Hypercholesterolemia: No Liver Disease: No Seizures: No Thyroid Disease: No - Surgical History Appendectomy: No Cholecystectomy: No Orthopedic Surgery: No - Suicide/Smoking/Psychosocial Hx Smoking Status: No Smoking History: Unknown if ever smoked Have you smoked in the past 12 months: No Number of Cigarettes Smoked Daily: 0 Hx Alcohol Use: No Drug/Substance Use Hx: No Substance Use Type: None Hx Substance Use Treatment: No <Mira Kwon - Last Filed: 07/10/17 16:55> - Past Medical History Allergies/Adverse Reactions: Allergies Allergy/AdvReac Type Severity Reaction Status Date / Time No Known Allergies Allergy Verified 07/10/17 15:53 Home Medications: Ambulatory Orders Montelukast Na [Singulair -] 10 mg PO HS tablet 09/21/15 Sennosides [Senna -] 1 tab PO DAILY PRN 08/18/16 predniSONE [Deltasone -] 5 mg PO DAILY 08/18/16 Calcium Carbonate/Vitamin D3 [Calcium 500 + Vit D Caplet] 1 each PO DAILY Ipratropium [place] 0.5 mg NEB TID 07/10/17 Zolpidem Tartrate [Ambien] 5 mg PO HS 07/10/17 Review of Systems - Review of Systems Able to Perform ROS?: No (Secondary to dementia ) <Ernesto Robledo - Last Filed: 07/10/17 14:10> *Physical Exam - Physical Exam Comments: 07/10/17 13:30 GENERAL: Awake and alert. No acute distress. HEAD: No signs of trauma EYES: PERRLA, EOMI, sclera anicteric, conjunctiva clear ENT: Auricles normal inspection, hearing grossly normal, nares patent, oropharynx clear without exudates. Moist mucosa NECK: Normal ROM, supple, no lymphadenopathy, JVD, or masses LUNGS: (+) Wheezing diffusely. HEART: Regular rate and rhythm, normal S1 and S2, no murmurs, rubs or gallops ABDOMEN: Soft, nontender, normoactive bowel sounds. No guarding, no rebound. No masses EXTREMITIES: Normal range of motion, no edema. No clubbing or cyanosis. No cords, erythema, or tenderness NEUROLOGICAL: Cranial nerves II through XII grossly intact. SKIN: Warm, Dry, normal turgor, no rashes or lesions noted. <Ernesto Robledo - Last Filed: 07/10/17 14:10> Heart Score/ECG Review - ECG Intrepretation Comment:: 07/10/17 14:31 sinus at 92, nl axis, nl interval, baseline artifact, no acute st/t wave findings <Mira Kwon - Last Filed: 07/10/17 16:55> ED Treatment Course - RADIOLOGY Radiograph Interpretation: 07/10/17 14:10 EXAM#: TYPE/EXAM: RESULT: [id number] RAD/CHEST X-RAY PORTABLE* AP portable chest: Shortness of breath Since the prior study of 08/21/2016, again noted is a scoliosis with degenerative changes and possible old rotator cuff injuries. There is a prominent mediastinum with hiatal hernia and some basilar atelectatic changes with some minimal pleural reaction. The base changes have increased since the prior study. Soft tissues are intact. Correlation recommended. 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 Harris 07/10/17 16:[address] Harris - accepts pt to med/surg for iv abx <Mira Kwon - Last Filed: 07/10/17 16:55> *DC/Admit/Observation/Transfer - Attestations Scribe Attestion: 07/10/17 13:33 Documentation prepared by Ernesto Robledo, acting as medical cash poster for Mira Kwon DO. <Ernesto Robledo - Last Filed: 07/10/17 14:10> - Discharge Dispostion Admit: Yes - Attestations Physician Attestion: 07/10/17 16:55 I, Dr. Mira Kwon DO, attest that this document has been prepared under my direction and personally reviewed by me in its entirety. I further attest, that it accurately reflects all work, treatment, procedures and medical decision -making performed by me. <Mira Kwon - Last Filed: 07/10/17 16:55> Diagnosis at time of Disposition: Pneumonia - Discharge Dispostion Condition at time of disposition: Fair - Referrals Referrals: Israel Harris MD [Primary Care Provider] -
[2017-07-10] MEDS ORDERED: ALBUTEROL SO4 2.5/IPRATROPIUM 0.5 INH SOL 3 ML VIAL.NEB. NEB ONE ×5 (13:23→20:04)
[2017-07-10 13:51] VITALS: BMI 22.6
[2017-07-10 14:24] LABS: BASO % 0.3 % (0-2.0); HEMATOCRIT 37.8 % (32.4-45.2); HEMOGLOBIN 12.3 GM/dL (10.7-15.3); LYMPH % 9.6 % (8-40); MCHC 32.5 g/dl (32.0-36.0); MEAN CELL VOLUME 89.2 fl (80-96); MEAN PLT VOLUME 9.3 fl (7.5-11.1); MONO % 3.4 % (3.8-10.2); NEUT % 86.7 % (42.8-82.8); PLATELET COUNT 246 K/MM3 (134-434); RBC 4.23 M/mm3 (3.60-5.2); RDW 15.7 % (11.6-15.6); WHITE BLOOD COUNT 12.3 K/mm3 (4.0-10.0)
[2017-07-10 14:36] LABS: INR 0.96 (0.82-1.09); PROTHROMBIN TIME (PATIENT) 10.8 SEC (9.98-11.88)
[2017-07-10 14:49] LABS: ALBUMIN 3.4 g/dl (3.4-5.0); ANION GAP 11 (8-16); BILIRUBIN,TOTAL 0.2 mg/dL (0.2-1.0); BLOOD UREA NITROGEN 17 mg/dL (7-18); CALCIUM 8.9 mg/dL (8.5-10.1); CHLORIDE 103 mmol/L (98-107); CO2 29 mmol/L (21-32); CREATININE 0.5 mg/dL (0.55-1.02); GLUCOSE,RANDOM 151 mg/dL (74-106); MAGNESIUM 2.5 mg/dL (1.8-2.4); POTASSIUM 4.2 mmol/L (3.5-5.1); SGOT/AST 37 U/L (15-37); SGPT/ALT 54 U/L (12-78); SODIUM 143 mmol/L (136-145); TOT PROT 7.7 g/dl (6.4-8.2)
[2017-07-10 14:51] LABS: ALK PHOS 102 U/L (45-117)
[2017-07-10] MEDS ORDERED: SODIUM CHLORIDE 0.9% 1000 ML INFUS.BAG IV ONE ×2 (15:01→16:56)
[2017-07-10 15:16] LABS: N-TERMINAL BNP 256.53 pg/ml (5-450)
[2017-07-10] MEDS ORDERED: cefTRIAXone 1 GM/50 ML BAG (PRE-DOCKED) IVPB ONE (16:21)
[2017-07-10] MEDS ORDERED: AZITHROMYCIN IVPB 500 MG in DEXTROSE 5%-WATER - 250 ML IVPB ONE (16:21)
[2017-07-10] MEDS ORDERED: CEFTRIAXONE 1 GM/50 ML BAG ONE (16:30)
[2017-07-10] MEDS ORDERED: AZITHROMYCIN IVPB 250 ML IVPB ONE (16:30)
--- NOTE | 2017-07-10 17:22 | HP ---
Admitting History and Physical - Primary Care Physician PCP: Israel Harris - Admission Chief Complaint: coughing History of Present Illness: 87 year old functional-quadroplegic homebound female, (accompanied by son and caregiver) with a significant past medical history of advanced dementia, asthma , hypertension, mild diabetes mellitus, hyperlipidemia, prior pneumonias and UTIs, (burned out)rheumatoid arthritis, who presents to the emergency department with, non productive cough and wheezing beginning this morning. As per the patients caregiver, she gave the patient 2 nebulizer treatments with minimal relief. She states the patient received a flu shot earlier in the year and denies any sick contacts. No reported fevers, chills, nausea, vomiting, or diarrhea. Patient is unable to provide additional history second to dementia ( pt. is nonverbal baseline status secondary to dementia since 2001 as per son). She resides at home with 24 x 7 attendant who assists her with all daily living functions. History Source: Medical Record Limitations to Obtaining History: Dementia - Past Medical History INDIVIDUAL PENSION CONSULTANT: Yes: Dementia Cardiovascular: Yes: Other (hx of edema) Pulmonary: Yes: Asthma, Bronchitis Gastrointestinal: Yes: Hiatal Hernia, Other (feeding problems) Heme/Onc: Yes: Anemia Psych: Yes: Anxiety, Depression Musculoskeletal: Yes: Osteoarthritis Rheumatology: Yes: Rheumatoid Arthritis (in remission [on no meds]) Endocrine: Yes: Diabetes Mellitus (borderline) - Smoking History Smoking history: Unknown if ever smoked Have you smoked in the past 12 months: No Aproximately how many cigarettes per day: 0 - Alcohol/Substance Use Hx Alcohol Use: No History of Substance Use: reports: None - Social History Usual Living Arrangement: Yes: Other (attendant) ADL: Support Services History of Recent Travel: No Home Medications - Allergies Allergies/Adverse Reactions: Allergies Allergy/AdvReac Type Severity Reaction Status Date / Time No Known Allergies Allergy Verified 07/10/17 15:53 - Home Medications Home Medications: Ambulatory Orders Montelukast Na [Singulair -] 10 mg PO HS tablet 09/21/15 Sennosides [Senna -] 1 tab PO DAILY PRN 08/18/16 predniSONE [Deltasone -] 5 mg PO DAILY 08/18/16 Calcium Carbonate/Vitamin D3 [Calcium 500 + Vit D Caplet] 1 each PO DAILY Ipratropium [place] 0.5 mg NEB TID 07/10/17 Zolpidem Tartrate [Ambien] 5 mg PO HS 07/10/17 Family Disease History - Family Disease History Family History: Unremarkable Review of Systems Findings/Remarks: unable to obtain due to muted stated resulting from advanced dementia Physical Examination Vital Signs: Vital Signs Temperature 98.4 F 07/10/17 13:42 Pulse Rate 95 H 07/10/17 13:42 Respiratory Rate 18 07/10/17 13:42 Blood Pressure 130/72 07/10/17 13:42 O2 Sat by Pulse Oximetry (%) 95 07/10/17 13:42 Findings/Remarks: skin--facial flushing head--NC eyes--midline; able to focus on others and follow ears--seems to be able to hear spoken voice neck--rigid lungs--bilat rhonchi; wheezes heart--rr distant breast--atrophic abd--distended; NT rectum--with pasty brown stool; no blood back--sacral redness with some small skin oppenings --NL external female anatomy ext--degen changes throughout; very limited ROM; no shantel or soft tissue tenderness; no gross ischemic changes of the LE's neuro--awake; catatonic-like; cognition severely impaired, but seems to be aware of others; face is expression-less; unable to speak or understand; does not make needs known; does not follow commands; does not move limbs purposefully or otherwise Labs: CBC, BMP 07/10/17 14:05 07/10/17 14:05 Laboratory Tests 07/10/17 07/10/17 07/10/17 14:05 14:05 14:05 WBC RBC Hgb Hct MCV MCH MCHC RDW Plt Count MPV Neutrophils % Lymphocytes % Monocytes % Eosinophils % Basophils % PT with INR 10.80 INR 0.96 PTT (Actin FS) 28.0 Sodium 143 Potassium 4.2 Chloride 103 Carbon Dioxide 29 Anion Gap 11 BUN 17 Creatinine 0.5 L Creat Clearance w eGFR > 60 Random Glucose 151 H Lactic Acid 2.8 H* Calcium 8.9 Magnesium 2.5 H Total Bilirubin 0.2 D AST 37 ALT 54 Alkaline Phosphatase 102 Creatine Kinase 28 Troponin I < 0.02 B-Natriuretic Peptide 256.53 Total Protein 7.7 Albumin 3.4 07/10/17 14:05 WBC 12.3 H D RBC 4.23 Hgb 12.3 Hct 37.8 MCV 89.2 MCH 29.0 MCHC 32.5 RDW 15.7 H Plt Count 246 D MPV 9.3 Neutrophils % 86.7 H Lymphocytes % 9.6 D Monocytes % 3.4 L Eosinophils % 0.0 Basophils % 0.3 PT with INR INR PTT (Actin FS) Sodium Potassium Chloride Carbon Dioxide Anion Gap BUN Creatinine Creat Clearance w eGFR Random Glucose Lactic Acid Calcium Magnesium Total Bilirubin AST ALT Alkaline Phosphatase Creatine Kinase Troponin I B-Natriuretic Peptide Total Protein Albumin Imaging - Results Chest X-ray: Report Reviewed Cat Scan: Report Reviewed EKG: Report Reviewed Problem List - Problems (1) Acute asthma exacerbation Assessment/Plan: unresponsive to neb Tx at home. Perhaps 2nd to infective lung process or even possible aspiration. PLAN: supp Tx; Neb Tx; IV steroids; Abs Code(s): J45.901 - UNSPECIFIED ASTHMA WITH (ACUTE) EXACERBATION Qualifiers: Asthma severity: moderate Asthma persistence: persistent Qualified Code(s ): J45.41 - Moderate persistent asthma with (acute) exacerbation (2) Pneumonia Assessment/Plan: as per CT scan description. PLAN: neb TX; Abs Code(s): J18.9 - PNEUMONIA, UNSPECIFIED ORGANISM Qualifiers: Pneumonia type: due to unspecified organism Laterality: right Lung location: unspecified part of lung Qualified Code(s): J18.9 - Pneumonia, unspecified organism (3) Diabetes Assessment/Plan: longstanding; have never needed diabetic meds; will check BGMs, and A1c Code(s): E11.9 - TYPE 2 DIABETES MELLITUS WITHOUT COMPLICATIONS Qualifiers: Diabetes mellitus type: type 2 Diabetes mellitus complication status: with neurologic complications Diabetes mellitus complication detail: with other neurological complication (4) Hiatal hernia with gastroesophageal reflux Assessment/Plan: not new; could contribute to possible aspiration. Code(s): K21.9 - GASTRO-ESOPHAGEAL REFLUX DISEASE WITHOUT ESOPHAGITIS; K44.9 - DIAPHRAGMATIC HERNIA WITHOUT OBSTRUCTION OR GANGRENE (5) Leukocytosis Assessment/Plan: very likely 2nd acute state of asthmatic exacerb & state of infection Code(s): D72.829 - ELEVATED WHITE BLOOD CELL COUNT, UNSPECIFIED Qualifiers: Leukocytosis type: unspecified Qualified Code(s): D72.829 - Elevated white blood cell count, unspecified (6) Decubitus ulcer of sacral region, stage 1 Assessment/Plan: will order a protective patch Code(s): L89.151 - PRESSURE ULCER OF SACRAL REGION, STAGE 1 (7) Mobility impaired Assessment/Plan: in all regards; needs full ADL support Code(s): Z74.09 - OTHER REDUCED MOBILITY (8) Vegetative state Assessment/Plan: as described Code(s): R40.3 - PERSISTENT VEGETATIVE STATE (9) History of rheumatoid arthritis Assessment/Plan: disease is no longer active Code(s): Z87.39 - PERSONAL HISTORY OF DISEASES OF THE MS SYS AND CONN TISS (10) Degenerative arthritis Assessment/Plan: diffuse; longstanding, contributing to limited ROM Code(s): M19.90 - UNSPECIFIED OSTEOARTHRITIS, UNSPECIFIED SITE Qualifiers: Osteoarthritis type: unspecified Laterality: bilateral (11) Needs assistance while at home Assessment/Plan: need to resume home services upon discharge Code(s): Z74.2 - NEED FOR ASSIST AT HOME & NO HOUSE MEMB ABLE TO RENDER CARE Assessment/Plan ill appearing 87 year old female, with acute respiratory distress due to asthmatic attack 2nd infective state; who is unable to make needs met and requires full ADL assistence. ~~~~~~~~~~~~~~~~~~~~~~ Dr Harris
[2017-07-10] MEDS ORDERED: DEXTROSE 5%-0.45% SALINE 1,000 ML IV SCH (18:00)
[2017-07-10] MEDS ORDERED: methylPREDNISolone NA SUCC 40 MG/1 ML VIAL ONE (19:56)
[2017-07-10] MEDS: methylPREDNISolone NA SUCC 125 MG/2 ML VIAL IVPB SCH (20:05)
[2017-07-10] MEDS: ALBUTEROL SO4 2.5/IPRATROPIUM 0.5 INH SOL 3 ML VIAL.NEB. NEB SCH (20:10)
--- NOTE | 2017-07-10 21:18 | EKG ---
Test Reason : Blood Pressure : / mmHG Vent. Rate : 092 BPM Atrial Rate : 092 BPM P-R Int : 154 ms QRS Dur : 072 ms QT Int : 354 ms P-R-T Axes : 024 038 032 degrees QTc Int : 437 ms POOR DATA QUALITY, INTERPRETATION MAY BE ADVERSELY AFFECTED NORMAL SINUS RHYTHM NORMAL ECG WHEN COMPARED WITH ECG OF 18-AUG-2016 13:48, NO SIGNIFICANT CHANGE WAS FOUND Confirmed by ANTHONY RICO MD ([id number]) on 07/10/2017 9:18:10 PM Referred By: Confirmed By:ANTHONY RICO MD
[2017-07-10 23:14] LABS: URINE APPEARANCE CLEAR; URINE BILIRUBIN NEGATIVE (<2.0 mg/dL); URINE BLOOD 1+ (NEGATIVE); URINE COLOR STRAW; URINE GLUCOSE (UA) 1+ (NEGATIVE); URINE KETONE NEGATIVE (NEGATIVE); URINE LEUK ESTERASE TRACE (NEGATIVE); URINE NITRITE NEGATIVE (NEGATIVE); URINE PROTEIN NEGATIVE (NEGATIVE); URINE UROBILINOGEN NEGATIVE mg/dL (0.2-1.0)
[2017-07-10 23:25] LABS: URINE BACTERIA RARE /hpf (NONE SEEN); URINE MUCUS RARE
[2017-07-11] MEDS ORDERED: methylPREDNISolone NA SUCC 40 MG/1 ML VIAL ONE (00:53)
[2017-07-11] MEDS: methylPREDNISolone NA SUCC 125 MG/2 ML VIAL IVPB SCH (02:41)
[2017-07-11] MEDS: ALBUTEROL SO4 2.5/IPRATROPIUM 0.5 INH SOL 3 ML VIAL.NEB. NEB SCH ×4 (07:35→20:24)
[2017-07-11 08:08] LABS: HEMATOCRIT 36.3 % (32.4-45.2); HEMOGLOBIN 12.1 GM/dL (10.7-15.3); MCH 29.6 pg (25.7-33.7); MCHC 33.3 g/dl (32.0-36.0); MEAN PLT VOLUME 9.2 fl (7.5-11.1); PLATELET COUNT 223 K/MM3 (134-434); RBC 4.07 M/mm3 (3.60-5.2); RDW 15.4 % (11.6-15.6); WHITE BLOOD COUNT 6.9 K/mm3 (4.0-10.0)
[2017-07-11 08:56] LABS: ANION GAP 6 (8-16); BLOOD UREA NITROGEN 8 mg/dL (7-18); CALCIUM 8.7 mg/dL (8.5-10.1); CHLORIDE 109 mmol/L (98-107); CO2 28 mmol/L (21-32); CREATININE 0.6 mg/dL (0.55-1.02); GLUCOSE,RANDOM 167 mg/dL (74-106); POTASSIUM 4.5 mmol/L (3.5-5.1); SODIUM 143 mmol/L (136-145)
[2017-07-11] MEDS ORDERED: ENOXAPARIN NA (PORCINE) 30 MG/0.3 ML DISP.SYRIN SQ SCH (10:00)
[2017-07-11] MEDS ORDERED: PT OWN MED DRAWER 7, Y5N ONE (10:02)
[2017-07-11] MEDS: methylPREDNISolone NA SUCC 125 MG/2 ML VIAL IVPUSH SCH ×2 (10:06→17:47)
[2017-07-11] MEDS: ENOXAPARIN NA (PORCINE) 40 MG/0.4 ML DISP.SYRIN SQ SCH (10:06)
[2017-07-11] MEDS ORDERED: SODIUM CHLORIDE 250 ML IV ONE (10:30)
--- NOTE | 2017-07-11 11:15 | PN ---
Progress Note (short form) - Note Progress Note: ID Consult dictated RLL pneumonia Possible sepsis secondary to pneumonia Acute exacerbation, asthma Lactic acidosis PCN allergy OBS Pending c/s empiric ceftriaxone/ zithromax
[2017-07-11] MEDS ORDERED: ALBUTEROL SO4 0.083% IH SOL 2.5 MG/3 ML VIAL.NEB. NEB ONE (12:02)
--- NOTE | 2017-07-11 12:35 | CONS ---
DATE OF CONSULTATION: HISTORY: The patient is an 87-year-old female with a history of dementia who was evaluated for right lower lobe pneumonia. She was admitted to the hospital on July 10, 2017 with a 1-day history of worsening dyspnea, wheeze, and nonproductive cough. She lives at home and has a home health aide. She was noted to be congested and wheezing. She was given nebulizer treatments without improvement. The patient presented to the emergency room where she was noted to have an elevated white blood cell count and lactic acidosis. CAT scan showed a right lower lobe infiltrate as well as bibasilar atelectasis with possible small effusions. She was empirically treated with ceftriaxone. At the present time, she is awake; however, she is not verbally responsive. She does not appear to be in acute respiratory distress. The patient lives at home with a home health aide. Her last hospitalization here was in August 2016. PAST MEDICAL HISTORY: Positive for longstanding dementia, bronchial asthma, rheumatoid arthritis, hypertension, hyperlipidemia, diabetes mellitus, urinary tract infections. ALLERGIES: PENICILLIN. Nature of this allergy not known. MEDICATIONS: Include Singulair, prednisone, Ambien. SOCIAL HISTORY: Lives at home. Has a home health aide. No documented tobacco or alcohol use history. According to the notes, longstanding dementia dating back to 2001. SYSTEMS REVIEW: Neurologic: Positive for dementia. Cardiac: Negative chest pain or palpitations. Respiratory: As per HPI. Gastrointestinal: Negative vomiting or diarrhea. Genitourinary: Negative for urinary tract infection. LABORATORY DATA: White count on admission 12.3, hematocrit 36.3, platelet count 223, BUN 8, creatinine 0.6. CAT scan shows right lower lobe infiltrate with bibasilar atelectasis and possible small effusions. Lactic acid 5.4. Urinalysis 8 white cells. Influenza swab negative. PHYSICAL EXAMINATION: General: The patient is awake but not verbally responsive. Her breathing is nonlabored. Vital Signs: Temperature 98.4, blood pressure 146/64, pulse 84 and regular, respirations 20 per minute. HEENT: Sclerae anicteric. Heart: Sounds S1, S2. Lungs: Scattered rhonchi with bilateral mild end-expiratory wheeze. Abdomen: Soft, obese, distended. No tenderness elicited. No mass, rebound, or rigidity. Extremities: Negative for pedal edema. She has deforming arthritis of the hands bilaterally and contractures of the upper extremities. IMPRESSION: 1. Right lower lobe community-acquired versus atypical pneumonia. 2. Possible sepsis secondary to pneumonia. 3. Lactic acidosis. 4. Acute exacerbation bronchial asthma. 5. PENICILLIN allergy. 6. Dementia. PLAN: Pending cultures, empiric antibiotic coverage with ceftriaxone and Zithromax. Await sputum culture, urine Legionella antigen. Bronchodilators. We will follow. Thank you for the kind referral. TAMIKA HAND M.D. [id number]
[2017-07-11] MEDS: CEFTRIAXONE 1,000 MG in DEXTROSE 5%-WATER - 50 ML IVPB SCH (13:12)
--- NOTE | 2017-07-11 14:34 | PN ---
Progress Note (short form) - Note Progress Note: ############# medical ############# Current Medications Albuterol/Ipratropium (Duoneb -) 1 amp NEB RTID [facility] Last Admin: 07/11/17 12:15 Dose: 1 amp Enoxaparin Sodium (Lovenox -) 40 mg SQ DAILY [facility] Last Admin: 07/11/17 10:06 Dose: 40 mg Dextrose/Sodium Chloride (D5-1/2ns -) 1,000 mls @ 42 mls/hr IV ASDIR [facility] Last Admin: 07/10/17 20:00 Dose: 42 mls/hr Ceftriaxone Sodium 1,000 mg/ (Dextrose) 50 mls @ 100 mls/hr IVPB DAILY [facility] Last Admin: 07/11/17 13:12 Dose: 100 mls/hr Azithromycin 500 mg/ Dextrose 250 mls @ 250 mls/hr IVPB DAILY [facility] Methylprednisolone Sodium Succinate (Solu-Medrol -) 80 mg IVPUSH Q8H-IV [facility] Last Admin: 07/11/17 10:06 Dose: 80 mg Laboratory Results - last 24 hr 07/10/17 07/10/17 07/10/17 14:05 14:05 14:05 WBC RBC Hgb Hct MCV MCH MCHC RDW Plt Count MPV PT with INR 10.80 INR 0.96 PTT (Actin FS) 28.0 Sodium 143 Potassium 4.2 Chloride 103 Carbon Dioxide 29 Anion Gap 11 BUN 17 Creatinine 0.5 L Creat Clearance w eGFR > 60 Random Glucose 151 H Hemoglobin A1c % Lactic Acid 2.8 H* Calcium 8.9 Magnesium 2.5 H Total Bilirubin 0.2 D AST 37 ALT 54 Alkaline Phosphatase 102 Creatine Kinase 28 Troponin I < 0.02 B-Natriuretic Peptide 256.53 Total Protein 7.7 Albumin 3.4 TSH Urine Color Urine Appearance Urine pH Ur Specific [place] Urine Protein Urine Glucose (UA) Urine Ketones Urine Blood Urine Nitrite Urine Bilirubin Urine Urobilinogen Ur Leukocyte Esterase Urine WBC (Auto) Urine RBC (Auto) Urine Bacteria Urine Mucus 07/10/17 07/10/17 07/11/17 14:05 23:00 07:00 WBC 6.9 D RBC 4.07 Hgb 12.1 Hct 36.3 MCV 89.0 MCH 29.6 MCHC 33.3 RDW 15.4 Plt Count 223 MPV 9.2 PT with INR INR PTT (Actin FS) Sodium Potassium Chloride Carbon Dioxide Anion Gap BUN Creatinine Creat Clearance w eGFR Random Glucose Hemoglobin A1c % 6.3 H Lactic Acid Calcium Magnesium Total Bilirubin AST ALT Alkaline Phosphatase Creatine Kinase Troponin I B-Natriuretic Peptide Total Protein Albumin TSH Urine Color Straw Urine Appearance Clear Urine pH 5.0 Ur Specific [place] 1.010 Urine Protein Negative Urine Glucose (UA) 1+ H Urine Ketones Negative Urine Blood 1+ H Urine Nitrite Negative Urine Bilirubin Negative Urine Urobilinogen Negative Ur Leukocyte Esterase Trace Urine WBC (Auto) 8 Urine RBC (Auto) 1 Urine Bacteria Rare Urine Mucus Rare 07/11/17 07/11/17 07:00 07:00 WBC RBC Hgb Hct MCV MCH MCHC RDW Plt Count MPV PT with INR INR PTT (Actin FS) Sodium 143 Potassium 4.5 Chloride 109 H Carbon Dioxide 28 Anion Gap 6 L BUN 8 Creatinine 0.6 Creat Clearance w eGFR Random Glucose 167 H Hemoglobin A1c % Lactic Acid 5.4 H* Calcium 8.7 Magnesium Total Bilirubin AST ALT Alkaline Phosphatase Creatine Kinase Troponin I B-Natriuretic Peptide Total Protein Albumin TSH 0.35 L Urine Color Urine Appearance Urine pH Ur Specific [place] Urine Protein Urine Glucose (UA) Urine Ketones Urine Blood Urine Nitrite Urine Bilirubin Urine Urobilinogen Ur Leukocyte Esterase Urine WBC (Auto) Urine RBC (Auto) Urine Bacteria Urine Mucus Vital Signs Temperature 98.4 F 07/11/17 01:48 Pulse Rate 84 07/11/17 01:48 Respiratory Rate 20 07/11/17 01:48 Blood Pressure 146/64 07/11/17 01:48 O2 Sat by Pulse Oximetry (%) 97 07/10/17 20:00 CC: non communicative ```````````````````` skin--flushed heart--RR lungs--no wheezing abd--distended, NT ext--diffuse contractures, no CCE, pulses not felt neuro--awake; severe cogn impairment `````````````````````````````````` Summ > asthmatic exacerb--less wheezing at this time, but had more wheezing this AM. PLAN: cont IV steroids; Neb Tx > PNA--Rt side; unable to obtain sputum; not coughing productively. PLAN IV ABs as per ID > Low TSH--check T4 > HIgh Lactate--improved post IV bolus; up IVF rate > DM--a1c is 6.3; will check BGMs > dementia--severe; cogn & physical impairment ~~~~~~~~~~~~~~~~~~~~~~~~~ Dr Harris Problem List - Problems (1) Acute asthma exacerbation Code(s): J45.901 - UNSPECIFIED ASTHMA WITH (ACUTE) EXACERBATION Qualifiers: Asthma severity: moderate Asthma persistence: persistent Qualified Code(s ): J45.41 - Moderate persistent asthma with (acute) exacerbation (2) Pneumonia Code(s): J18.9 - PNEUMONIA, UNSPECIFIED ORGANISM Qualifiers: Pneumonia type: due to unspecified organism Laterality: right Lung location: unspecified part of lung Qualified Code(s): J18.9 - Pneumonia, unspecified organism (3) Diabetes Code(s): E11.9 - TYPE 2 DIABETES MELLITUS WITHOUT COMPLICATIONS Qualifiers: Diabetes mellitus type: type 2 Diabetes mellitus complication status: with neurologic complications Diabetes mellitus complication detail: with other neurological complication (4) Hiatal hernia with gastroesophageal reflux Code(s): K21.9 - GASTRO-ESOPHAGEAL REFLUX DISEASE WITHOUT ESOPHAGITIS; K44.9 - DIAPHRAGMATIC HERNIA WITHOUT OBSTRUCTION OR GANGRENE (5) Leukocytosis Code(s): D72.829 - ELEVATED WHITE BLOOD CELL COUNT, UNSPECIFIED Qualifiers: Leukocytosis type: unspecified Qualified Code(s): D72.829 - Elevated white blood cell count, unspecified (6) Decubitus ulcer of sacral region, stage 1 Code(s): L89.151 - PRESSURE ULCER OF SACRAL REGION, STAGE 1 (7) Mobility impaired Code(s): Z74.09 - OTHER REDUCED MOBILITY (8) Vegetative state Code(s): R40.3 - PERSISTENT VEGETATIVE STATE (9) History of rheumatoid arthritis Code(s): Z87.39 - PERSONAL HISTORY OF DISEASES OF THE MS SYS AND CONN TISS (10) Degenerative arthritis Code(s): M19.90 - UNSPECIFIED OSTEOARTHRITIS, UNSPECIFIED SITE Qualifiers: Osteoarthritis type: unspecified Laterality: bilateral (11) Needs assistance while at home Code(s): Z74.2 - NEED FOR ASSIST AT HOME & NO HOUSE MEMB ABLE TO RENDER CARE
[2017-07-11] MEDS ORDERED: SODIUM PHOSPHATE/NA BIPHOS 133 ML ENEMA PR ONE (14:45)
[2017-07-11] MEDS ORDERED: DOCUSATE NA 100 MG/10 ML UNIT-DOSE CUPS PO PRN (14:57)
[2017-07-11] MEDS ORDERED: PANTOPRAZOLE SODIUM 40 MG VIAL IVPB SCH (15:00)
[2017-07-11] MEDS: AZITHROMYCIN IVPB 500 MG in DEXTROSE 5%-WATER - 250 ML IVPB SCH (15:55)
[2017-07-11] MEDS: DEXTROSE 5%-0.45% SALINE 1,000 ML IV SCH (16:01)
[2017-07-11] MEDS: PANTOPRAZOLE SODIUM 40 MG VIAL IVPUSH SCH (17:47)
[2017-07-12] MEDS: methylPREDNISolone NA SUCC 125 MG/2 ML VIAL IVPUSH SCH ×3 (01:20→17:40)
[2017-07-12] MEDS: ALBUTEROL SO4 2.5/IPRATROPIUM 0.5 INH SOL 3 ML VIAL.NEB. NEB SCH ×3 (07:30→20:30)
[2017-07-12 08:40] LABS: HEMATOCRIT 35.4 % (32.4-45.2); HEMOGLOBIN 11.7 GM/dL (10.7-15.3); MCH 29.3 pg (25.7-33.7); MEAN CELL VOLUME 88.7 fl (80-96); MEAN PLT VOLUME 9.4 fl (7.5-11.1); PLATELET COUNT 228 K/MM3 (134-434); RBC 3.99 M/mm3 (3.60-5.2); RDW 15.2 % (11.6-15.6); WHITE BLOOD COUNT 9.4 K/mm3 (4.0-10.0)
[2017-07-12 08:52] LABS: ANION GAP 6 (8-16); BLOOD UREA NITROGEN 8 mg/dL (7-18); CALCIUM 8.6 mg/dL (8.5-10.1); CHLORIDE 107 mmol/L (98-107); CO2 30 mmol/L (21-32); CREATININE 0.5 mg/dL (0.55-1.02); GLUCOSE,RANDOM 178 mg/dL (74-106); POTASSIUM 3.6 mmol/L (3.5-5.1); SODIUM 143 mmol/L (136-145)
[2017-07-12] MEDS ORDERED: PT OWN MED DRAWER 7, Y5N ONE ×2 (10:57→21:44)
[2017-07-12] MEDS: ENOXAPARIN NA (PORCINE) 40 MG/0.4 ML DISP.SYRIN SQ SCH (11:04)
[2017-07-12] MEDS: PANTOPRAZOLE SODIUM 40 MG VIAL IVPUSH SCH (11:05)
[2017-07-12] MEDS: CEFTRIAXONE 1,000 MG in DEXTROSE 5%-WATER - 50 ML IVPB SCH (11:07)
[2017-07-12] MEDS: AZITHROMYCIN IVPB 500 MG in DEXTROSE 5%-WATER - 250 ML IVPB SCH (12:20)
--- NOTE | 2017-07-12 13:59 | PN ---
Progress Note, Physician History of Present Illness: Awake, non verbal Noted to have confluent blanching rash on face, neck, chest No wheezing noted Breathing non labored Afebrile on steroids WBC WNL Blood c/s (-) - Current Medication List Current Medications: Active Medications Albuterol Sulfate (Ventolin 0.042trength) -) 1 amp NEB Q6H PRN PRN Reason: SHORT OF BREATH/WHEEZING Albuterol/Ipratropium (Duoneb -) 1 amp NEB RTID ON LICENSE OF [facility] Last Admin: 07/12/17 07:30 Dose: 1 amp Docusate Sodium (Colace Liquid -) 100 mg PO DAILY PRN PRN Reason: CONSTIPATION Enoxaparin Sodium (Lovenox -) 40 mg SQ DAILY ON LICENSE OF [facility] Last Admin: 07/12/17 11:04 Dose: 40 mg Ceftriaxone Sodium 1,000 mg/ (Dextrose) 50 mls @ 100 mls/hr IVPB DAILY ON LICENSE OF [facility] Last Admin: 07/12/17 11:07 Dose: 100 mls/hr Azithromycin 500 mg/ Dextrose 250 mls @ 250 mls/hr IVPB DAILY ON LICENSE OF [facility] Last Admin: 07/12/17 12:20 Dose: 250 mls/hr Dextrose/Sodium Chloride (D5-1/2ns -) 1,000 mls @ 75 mls/hr IV ASDIR ON LICENSE OF [facility] Last Admin: 07/11/17 16:01 Dose: 75 mls/hr Methylprednisolone Sodium Succinate (Solu-Medrol -) 80 mg IVPUSH Q8H-IV ON LICENSE OF [facility] Last Admin: 07/12/17 11:06 Dose: 80 mg Pantoprazole Sodium (Protonix Iv) 20 mg IVPUSH DAILY ON LICENSE OF [facility] Last Admin: 07/12/17 11:05 Dose: 20 mg - Objective Vital Signs: Vital Signs Temperature 98.3 F 07/12/17 08:20 Pulse Rate 107 H 07/12/17 08:20 Respiratory Rate 20 07/12/17 08:20 Blood Pressure 126/57 07/12/17 08:20 O2 Sat by Pulse Oximetry (%) 95 07/12/17 09:00 Constitutional: Yes: No Distress Cardiovascular: Yes: Regular Rate and Rhythm, S1, S2 Respiratory: Yes: Diminished. No: Wheezes Gastrointestinal: Yes: Normal Bowel Sounds, Soft. No: Tenderness Edema: Yes Integumentary: Yes: Other (+ blanching rash on face, neck , trunk No urticaria) Labs: CBC, BMP 07/12/17 07:00 07/12/17 07:00 INR, PTT INR 0.96 (0.82-1.09) 07/10/17 14:05 Assessment/Plan RLL pneumonia ? Ceftriaxone allergy ( previous PCN allergy ) Possible sepsis secondary to pneumonia Lactic acidosis Asthma D/C ceftriaxone/ zithromax Benadryl prn Pt on steroids Substitute Levaquin
[2017-07-12] MEDS ORDERED: diphenhydrAMINE HCL 25 MG CAPSULE (FP) PO PRN (14:01)
--- NOTE | 2017-07-12 17:09 | PN ---
Progress Note (short form) - Note Progress Note: medical Current Medications Albuterol Sulfate (Ventolin 0.042trength) -) 1 amp NEB Q6H PRN PRN Reason: SHORT OF BREATH/WHEEZING Albuterol/Ipratropium (Duoneb -) 1 amp NEB RTID [facility] Last Admin: 07/12/17 14:30 Dose: 1 amp Diphenhydramine HCl (Benadryl -) 25 mg PO Q6H PRN PRN Reason: FOR ITCHING Last Admin: 07/12/17 14:57 Dose: 25 mg Docusate Sodium (Colace Liquid -) 100 mg PO DAILY PRN PRN Reason: CONSTIPATION Enoxaparin Sodium (Lovenox -) 40 mg SQ DAILY [facility] Last Admin: 07/12/17 11:04 Dose: 40 mg Dextrose/Sodium Chloride (D5-1/2ns -) 1,000 mls @ 75 mls/hr IV ASDIR [facility] Last Admin: 07/11/17 16:01 Dose: 75 mls/hr Levofloxacin (Levaquin 250 Mg Premixed Ivpb -) 250 mg in 50 mls @ 50 mls/hr IVPB DAILY [facility] Last Admin: 07/12/17 14:56 Dose: 50 mls/hr Methylprednisolone Sodium Succinate (Solu-Medrol -) 80 mg IVPUSH Q8H-IV [facility] Last Admin: 07/12/17 11:06 Dose: 80 mg Pantoprazole Sodium (Protonix Iv) 20 mg IVPUSH DAILY [facility] Last Admin: 07/12/17 11:05 Dose: 20 mg Laboratory Results - last 24 hr 07/12/17 07/12/17 07/12/17 07:00 07:00 07:00 WBC 9.4 D RBC 3.99 Hgb 11.7 Hct 35.4 MCV 88.7 MCH 29.3 MCHC 33.0 RDW 15.2 Plt Count 228 MPV 9.4 Sodium 143 Potassium 3.6 Chloride 107 Carbon Dioxide 30 Anion Gap 6 L BUN 8 Creatinine 0.5 L Random Glucose 178 H Lactic Acid 3.4 H* Calcium 8.6 Free T4 0.95 Vital Signs Temperature 98.2 F 07/12/17 14:56 Pulse Rate 84 07/12/17 14:56 Respiratory Rate 74 H 07/12/17 14:56 Blood Pressure 133/74 07/12/17 14:56 O2 Sat by Pulse Oximetry (%) 95 07/12/17 09:00 CC: non communicative ```````````````````` skin--flushed heart--RR lungs--no wheezing abd--soft ext--diffuse contractures, no CCE, pulses not felt neuro--awake; severe cogn impairment `````````````````````````````````` Summ > asthmatic exacerb--less wheezing at this time, cont current steroid dose for now & neb Tx. PLAN: CXR in AM > Rash--hyperemic rash symmetric more fiery than yesterday; 2nd possible allergy to Antibiotic PLAN; changed to Levaquin by ID; cont steroid > PNA--Rt side; unable to obtain sputum; not coughing productively. PLAN get CXR > Low TSH--T4 okay > HIgh Lactate--improved up IVF rate > DM--a1c is 6.3; will check BGMs > dementia--severe; cogn & physical impairment ~~~~~~~~~~~~~~~~~~~~~~~~~ Dr Harris Problem List - Problems (1) Acute asthma exacerbation Code(s): J45.901 - UNSPECIFIED ASTHMA WITH (ACUTE) EXACERBATION Qualifiers: Asthma severity: moderate Asthma persistence: persistent Qualified Code(s ): J45.41 - Moderate persistent asthma with (acute) exacerbation (2) Pneumonia Code(s): J18.9 - PNEUMONIA, UNSPECIFIED ORGANISM Qualifiers: Pneumonia type: due to unspecified organism Laterality: right Lung location: unspecified part of lung Qualified Code(s): J18.9 - Pneumonia, unspecified organism (3) Diabetes Code(s): E11.9 - TYPE 2 DIABETES MELLITUS WITHOUT COMPLICATIONS Qualifiers: Diabetes mellitus type: type 2 Diabetes mellitus complication status: with neurologic complications Diabetes mellitus complication detail: with other neurological complication (4) Hiatal hernia with gastroesophageal reflux Code(s): K21.9 - GASTRO-ESOPHAGEAL REFLUX DISEASE WITHOUT ESOPHAGITIS; K44.9 - DIAPHRAGMATIC HERNIA WITHOUT OBSTRUCTION OR GANGRENE (5) Leukocytosis Code(s): D72.829 - ELEVATED WHITE BLOOD CELL COUNT, UNSPECIFIED Qualifiers: Leukocytosis type: unspecified Qualified Code(s): D72.829 - Elevated white blood cell count, unspecified (6) Decubitus ulcer of sacral region, stage 1 Code(s): L89.151 - PRESSURE ULCER OF SACRAL REGION, STAGE 1 (7) Mobility impaired Code(s): Z74.09 - OTHER REDUCED MOBILITY (8) Vegetative state Code(s): R40.3 - PERSISTENT VEGETATIVE STATE (9) History of rheumatoid arthritis Code(s): Z87.39 - PERSONAL HISTORY OF DISEASES OF THE MS SYS AND CONN TISS (10) Degenerative arthritis Code(s): M19.90 - UNSPECIFIED OSTEOARTHRITIS, UNSPECIFIED SITE Qualifiers: Osteoarthritis type: unspecified Laterality: bilateral (11) Needs assistance while at home Code(s): Z74.2 - NEED FOR ASSIST AT HOME & NO HOUSE MEMB ABLE TO RENDER CARE
[2017-07-12] MEDS: DEXTROSE 5%-0.45% SALINE 1,000 ML IV SCH ×2 (17:44)
[2017-07-13] MEDS: methylPREDNISolone NA SUCC 125 MG/2 ML VIAL IVPUSH SCH ×3 (02:21→18:12)
[2017-07-13] MEDS: ALBUTEROL SO4 2.5/IPRATROPIUM 0.5 INH SOL 3 ML VIAL.NEB. NEB SCH ×3 (07:30→21:06)
[2017-07-13] MEDS: PANTOPRAZOLE SODIUM 40 MG VIAL IVPUSH SCH (11:24)
[2017-07-13] MEDS: ENOXAPARIN NA (PORCINE) 40 MG/0.4 ML DISP.SYRIN SQ SCH (11:26)
--- NOTE | 2017-07-13 15:29 | PN ---
Progress Note (short form) - Note Progress Note: @@@@@@@@@@@@@@ medical @@@@@@@@@@@@ Current Medications Albuterol Sulfate (Ventolin 0.042trength) -) 1 amp NEB Q6H PRN PRN Reason: SHORT OF BREATH/WHEEZING Albuterol/Ipratropium (Duoneb -) 1 amp NEB RTID [facility] Last Admin: 07/13/17 14:00 Dose: 1 amp Diphenhydramine HCl (Benadryl -) 25 mg PO Q6H PRN PRN Reason: FOR ITCHING Last Admin: 07/12/17 14:57 Dose: 25 mg Docusate Sodium (Colace Liquid -) 100 mg PO DAILY PRN PRN Reason: CONSTIPATION Enoxaparin Sodium (Lovenox -) 40 mg SQ DAILY [facility] Last Admin: 07/13/17 11:26 Dose: 40 mg Dextrose/Sodium Chloride (D5-1/2ns -) 1,000 mls @ 75 mls/hr IV ASDIR [facility] Last Admin: 07/12/17 17:44 Dose: 75 mls/hr Levofloxacin (Levaquin 250 Mg Premixed Ivpb -) 250 mg in 50 mls @ 50 mls/hr IVPB DAILY [facility] Last Admin: 07/13/17 11:25 Dose: 50 mls/hr Methylprednisolone Sodium Succinate (Solu-Medrol -) 80 mg IVPUSH Q8H-IV [facility] Last Admin: 07/13/17 11:25 Dose: 80 mg Pantoprazole Sodium (Protonix Iv) 20 mg IVPUSH DAILY [facility] Last Admin: 07/13/17 11:24 Dose: 20 mg Laboratory Results - last 24 hr 07/12/17 07/13/17 17:39 06:52 POC Glucometer 219 179 Vital Signs Temperature 98.5 F 07/13/17 07:21 Pulse Rate 86 07/13/17 07:21 Respiratory Rate 20 07/13/17 07:21 Blood Pressure 156/88 07/13/17 07:21 O2 Sat by Pulse Oximetry (%) 95 07/12/17 21:00 CC: vocalizes but is non communicative ```````````````````` skin--symmetrically flushed heart--RR lungs--some wheezing abd--soft ext--diffuse contractures, no CCE, pulses not felt neuro--able to phonate but unable to converse; awake; severe cogn impairment `````````````````````````````````` Summ > asthmatic exacerb--some wheezing, cont current steroid dose for now & neb Tx. PLAN: CXR > Rash--hyperemic rash symmetric less fiery than yesterday; 2nd possible allergy to Antibiotic PLAN; cont steroid > PNA--Rt side; unable to obtain sputum; not coughing productively. PLAN get CXR > Low TSH--T4 okay > HIgh Lactate--improved, repeat in AM > DM--BGMs likely due to steroid > dementia--severe; cogn & physical impairment ~~~~~~~~~~~~~~~~~~~~~~~~~ Dr Harris Problem List - Problems (1) Acute asthma exacerbation Code(s): J45.901 - UNSPECIFIED ASTHMA WITH (ACUTE) EXACERBATION Qualifiers: Asthma severity: moderate Asthma persistence: persistent Qualified Code(s ): J45.41 - Moderate persistent asthma with (acute) exacerbation (2) Pneumonia Code(s): J18.9 - PNEUMONIA, UNSPECIFIED ORGANISM Qualifiers: Pneumonia type: due to unspecified organism Laterality: right Lung location: unspecified part of lung Qualified Code(s): J18.9 - Pneumonia, unspecified organism (3) Diabetes Code(s): E11.9 - TYPE 2 DIABETES MELLITUS WITHOUT COMPLICATIONS Qualifiers: Diabetes mellitus type: type 2 Diabetes mellitus complication status: with neurologic complications Diabetes mellitus complication detail: with other neurological complication (4) Hiatal hernia with gastroesophageal reflux Code(s): K21.9 - GASTRO-ESOPHAGEAL REFLUX DISEASE WITHOUT ESOPHAGITIS; K44.9 - DIAPHRAGMATIC HERNIA WITHOUT OBSTRUCTION OR GANGRENE (5) Leukocytosis Code(s): D72.829 - ELEVATED WHITE BLOOD CELL COUNT, UNSPECIFIED Qualifiers: Leukocytosis type: unspecified Qualified Code(s): D72.829 - Elevated white blood cell count, unspecified (6) Decubitus ulcer of sacral region, stage 1 Code(s): L89.151 - PRESSURE ULCER OF SACRAL REGION, STAGE 1 (7) Mobility impaired Code(s): Z74.09 - OTHER REDUCED MOBILITY (8) Vegetative state Code(s): R40.3 - PERSISTENT VEGETATIVE STATE (9) History of rheumatoid arthritis Code(s): Z87.39 - PERSONAL HISTORY OF DISEASES OF THE MS SYS AND CONN TISS (10) Degenerative arthritis Code(s): M19.90 - UNSPECIFIED OSTEOARTHRITIS, UNSPECIFIED SITE Qualifiers: Osteoarthritis type: unspecified Laterality: bilateral (11) Needs assistance while at home Code(s): Z74.2 - NEED FOR ASSIST AT HOME & NO HOUSE MEMB ABLE TO RENDER CARE
[2017-07-13] MEDS: DEXTROSE 5%-0.45% SALINE 1,000 ML IV SCH (18:09)
--- NOTE | 2017-07-13 21:05 | PN ---
Progress Note, Physician History of Present Illness: Awake, alert appearing Not verbally responsive Still with blanching rash on face, neck, chest Breathing non labored Afebrile on steroids WBC WNL Blood c/s (-) - Current Medication List Current Medications: Active Medications Albuterol Sulfate (Ventolin 0.042trength) -) 1 amp NEB Q6H PRN PRN Reason: SHORT OF BREATH/WHEEZING Albuterol/Ipratropium (Duoneb -) 1 amp NEB RTID [facility] Last Admin: 07/13/17 14:00 Dose: 1 amp Diphenhydramine HCl (Benadryl -) 25 mg PO Q6H PRN PRN Reason: FOR ITCHING Last Admin: 07/12/17 14:57 Dose: 25 mg Docusate Sodium (Colace Liquid -) 100 mg PO DAILY PRN PRN Reason: CONSTIPATION Enoxaparin Sodium (Lovenox -) 40 mg SQ DAILY [facility] Last Admin: 07/13/17 11:26 Dose: 40 mg Dextrose/Sodium Chloride (D5-1/2ns -) 1,000 mls @ 75 mls/hr IV ASDIR [facility] Last Admin: 07/13/17 18:09 Dose: 75 mls/hr Levofloxacin (Levaquin 250 Mg Premixed Ivpb -) 250 mg in 50 mls @ 50 mls/hr IVPB DAILY [facility] Last Admin: 07/13/17 11:25 Dose: 50 mls/hr Methylprednisolone Sodium Succinate (Solu-Medrol -) 80 mg IVPUSH Q8H-IV [facility] Last Admin: 07/13/17 18:12 Dose: 80 mg Pantoprazole Sodium (Protonix Iv) 20 mg IVPUSH DAILY [facility] Last Admin: 07/13/17 11:24 Dose: 20 mg - Objective Vital Signs: Vital Signs Temperature 97.7 F 07/13/17 20:48 Pulse Rate 99 H 07/13/17 20:48 Respiratory Rate 18 07/13/17 16:30 Blood Pressure 154/86 07/13/17 20:48 O2 Sat by Pulse Oximetry (%) 96 07/13/17 09:00 Constitutional: Yes: No Distress Cardiovascular: Yes: Regular Rate and Rhythm, S1, S2 Respiratory: Yes: Wheezes Gastrointestinal: Yes: Normal Bowel Sounds, Soft Labs: CBC, BMP 07/12/17 07:00 07/12/17 07:00 INR, PTT INR 0.96 (0.82-1.09) 07/10/17 14:05 Assessment/Plan RLL pneumonia Ceftriaxone allergy ( previous PCN allergy ) Possible sepsis secondary to pneumonia Lactic acidosis Asthma Benadryl prn Pt on steroids Continue Levaquin
[2017-07-14] MEDS: methylPREDNISolone NA SUCC 125 MG/2 ML VIAL IVPUSH SCH ×2 (01:41→09:58)
[2017-07-14 08:08] LABS: HEMATOCRIT 35.6 % (32.4-45.2); HEMOGLOBIN 11.9 GM/dL (10.7-15.3); MCH 29.4 pg (25.7-33.7); MCHC 33.5 g/dl (32.0-36.0); MEAN CELL VOLUME 87.6 fl (80-96); MEAN PLT VOLUME 9.1 fl (7.5-11.1); PLATELET COUNT 218 K/MM3 (134-434); RBC 4.06 M/mm3 (3.60-5.2); RDW 15.1 % (11.6-15.6); WHITE BLOOD COUNT 8.2 K/mm3 (4.0-10.0)
[2017-07-14 08:29] LABS: ANION GAP 10 (8-16); CALCIUM 8.9 mg/dL (8.5-10.1); CHLORIDE 103 mmol/L (98-107); CO2 31 mmol/L (21-32); GLUCOSE,RANDOM 195 mg/dL (74-106); POTASSIUM 3.8 mmol/L (3.5-5.1); SODIUM 144 mmol/L (136-145)
[2017-07-14 08:31] LABS: BLOOD UREA NITROGEN 14 mg/dL (7-18); CREATININE 0.6 mg/dL (0.55-1.02)
[2017-07-14] MEDS: ALBUTEROL SO4 2.5/IPRATROPIUM 0.5 INH SOL 3 ML VIAL.NEB. NEB SCH ×3 (08:44→20:36)
[2017-07-14] MEDS: PANTOPRAZOLE SODIUM 40 MG VIAL IVPUSH SCH (09:58)
[2017-07-14] MEDS: ENOXAPARIN NA (PORCINE) 40 MG/0.4 ML DISP.SYRIN SQ SCH (09:58)
[2017-07-14] MEDS: ALBUTEROL SO4 0.042% IH SOL 1.25 MG/3 ML VIAL.NEB NEB PRN (10:50)
[2017-07-14] MEDS ORDERED: INSULIN (NOVOLOG) ASPART 100 UNITS/ML 10ML VIAL ONE (12:46)
--- NOTE | 2017-07-14 15:39 | PN ---
Progress Note, Physician History of Present Illness: Awake Not verbally responsive Rash nearly all resolved Breathing non labored + wheeze Afebrile on steroids WBC WNL Blood c/s (-) - Current Medication List Current Medications: Active Medications Albuterol Sulfate (Ventolin 0.042trength) -) 1 amp NEB Q6H PRN PRN Reason: SHORT OF BREATH/WHEEZING Last Admin: 07/14/17 10:50 Dose: 1 amp Albuterol/Ipratropium (Duoneb -) 1 amp NEB RTID [facility] Last Admin: 07/14/17 08:44 Dose: 1 amp Diphenhydramine HCl (Benadryl -) 25 mg PO Q6H PRN PRN Reason: FOR ITCHING Last Admin: 07/12/17 14:57 Dose: 25 mg Docusate Sodium (Colace Liquid -) 100 mg PO DAILY PRN PRN Reason: CONSTIPATION Enoxaparin Sodium (Lovenox -) 40 mg SQ DAILY [facility] Last Admin: 07/14/17 09:58 Dose: 40 mg Dextrose/Sodium Chloride (D5-1/2ns -) 1,000 mls @ 100 mls/hr IV ASDIR [facility] Last Admin: 07/13/17 18:09 Dose: 75 mls/hr Levofloxacin (Levaquin 250 Mg Premixed Ivpb -) 250 mg in 50 mls @ 50 mls/hr IVPB DAILY [facility] Last Admin: 07/14/17 09:58 Dose: 50 mls/hr Methylprednisolone Sodium Succinate (Solu-Medrol -) 80 mg IVPUSH Q8H-IV [facility] Last Admin: 07/14/17 09:58 Dose: 80 mg Pantoprazole Sodium (Protonix Iv) 20 mg IVPUSH DAILY [facility] Last Admin: 07/14/17 09:58 Dose: 20 mg - Objective Vital Signs: Vital Signs Temperature 98.1 F 07/14/17 09:00 Pulse Rate 94 H 07/14/17 09:00 Respiratory Rate 18 07/14/17 09:00 Blood Pressure 151/79 07/14/17 09:00 O2 Sat by Pulse Oximetry (%) 96 07/13/17 09:00 Constitutional: Yes: No Distress Cardiovascular: Yes: Regular Rate and Rhythm, S1, S2 Respiratory: Yes: Rhonchi, Wheezes Gastrointestinal: Yes: Normal Bowel Sounds, Soft, Abdomen, Obese. No: Tenderness Labs: CBC, BMP 07/14/17 06:00 07/14/17 06:00 INR, PTT INR 0.96 (0.82-1.09) 07/10/17 14:05 Assessment/Plan RLL pneumonia Ceftriaxone allergy ( previous PCN allergy ) Possible sepsis secondary to pneumonia Lactic acidosis Asthma Continue Levaquin Steroids
--- NOTE | 2017-07-14 17:35 | PN ---
Progress Note (short form) - Note Progress Note: ############### medical ########### Current Medications Albuterol Sulfate (Ventolin 0.042trength) -) 1 amp NEB Q6H PRN PRN Reason: SHORT OF BREATH/WHEEZING Last Admin: 07/14/17 10:50 Dose: 1 amp Albuterol/Ipratropium (Duoneb -) 1 amp NEB RTID [facility] Last Admin: 07/14/17 14:30 Dose: 1 amp Diphenhydramine HCl (Benadryl -) 25 mg PO Q6H PRN PRN Reason: FOR ITCHING Last Admin: 07/12/17 14:57 Dose: 25 mg Docusate Sodium (Colace Liquid -) 100 mg PO DAILY PRN PRN Reason: CONSTIPATION Enoxaparin Sodium (Lovenox -) 40 mg SQ DAILY [facility] Last Admin: 07/14/17 09:58 Dose: 40 mg Dextrose/Sodium Chloride (D5-1/2ns -) 1,000 mls @ 100 mls/hr IV ASDIR [facility] Last Admin: 07/13/17 18:09 Dose: 75 mls/hr Levofloxacin (Levaquin 250 Mg Premixed Ivpb -) 250 mg in 50 mls @ 50 mls/hr IVPB DAILY [facility] Last Admin: 07/14/17 09:58 Dose: 50 mls/hr Methylprednisolone Sodium Succinate (Solu-Medrol -) 40 mg IVPB Q8H [facility] Pantoprazole Sodium (Protonix Iv) 20 mg IVPUSH DAILY [facility] Last Admin: 07/14/17 09:58 Dose: 20 mg Laboratory Results - last 24 hr 07/13/17 07/14/17 07/14/17 18:08 06:00 06:00 WBC 8.2 RBC 4.06 Hgb 11.9 Hct 35.6 MCV 87.6 MCH 29.4 MCHC 33.5 RDW 15.1 Plt Count 218 MPV 9.1 Sodium 144 Potassium 3.8 Chloride 103 Carbon Dioxide 31 Anion Gap 10 BUN 14 Creatinine 0.6 POC Glucometer 201 Random Glucose 195 H Lactic Acid Calcium 8.9 07/14/17 07/14/17 07/14/17 06:00 06:37 12:43 WBC RBC Hgb Hct MCV MCH MCHC RDW Plt Count MPV Sodium Potassium Chloride Carbon Dioxide Anion Gap BUN Creatinine POC Glucometer 185 234 Random Glucose Lactic Acid 4.0 H* Calcium Vital Signs Temperature 97.8 F 07/14/17 17:21 Pulse Rate 87 07/14/17 17:21 Respiratory Rate 20 07/14/17 17:21 Blood Pressure 133/66 07/14/17 17:21 O2 Sat by Pulse Oximetry (%) 90 L 07/14/17 09:00 CC: non communicative ```````````````````` skin--some flushing heart--RR lungs--some wheezing abd--soft ext--diffuse contractures, no CCE, pulses not felt neuro--cogn impairment; depressed sensorium; awkens a bit when touched `````````````````````````````````` Summ > asthmatic exacerb--CXR unrevealing (see report) cont current steroid but will now reduce the dose; cont & neb Tx. > Rash--hyperemic rash attenuating; 2nd possible allergy to Antibiotic PLAN; cont steroid > PNA--Rt side; unable to obtain sputum; not coughing productively. PLAN may need repeat chest CT > Low TSH--T4 okay > HIgh Lactate--level back up; will up IVF rate & repeat > DM--high BGMs likely due to steroid effect > dementia--severe; cogn & physical impairment ~~~~~~~~~~~~~~~~~~~~~~~~~ Dr Harris Problem List - Problems (1) Acute asthma exacerbation Code(s): J45.901 - UNSPECIFIED ASTHMA WITH (ACUTE) EXACERBATION Qualifiers: Asthma severity: moderate Asthma persistence: persistent Qualified Code(s ): J45.41 - Moderate persistent asthma with (acute) exacerbation (2) Pneumonia Code(s): J18.9 - PNEUMONIA, UNSPECIFIED ORGANISM Qualifiers: Pneumonia type: due to unspecified organism Laterality: right Lung location: unspecified part of lung Qualified Code(s): J18.9 - Pneumonia, unspecified organism (3) Diabetes Code(s): E11.9 - TYPE 2 DIABETES MELLITUS WITHOUT COMPLICATIONS Qualifiers: Diabetes mellitus type: type 2 Diabetes mellitus complication status: with neurologic complications Diabetes mellitus complication detail: with other neurological complication (4) Hiatal hernia with gastroesophageal reflux Code(s): K21.9 - GASTRO-ESOPHAGEAL REFLUX DISEASE WITHOUT ESOPHAGITIS; K44.9 - DIAPHRAGMATIC HERNIA WITHOUT OBSTRUCTION OR GANGRENE (5) Leukocytosis Code(s): D72.829 - ELEVATED WHITE BLOOD CELL COUNT, UNSPECIFIED Qualifiers: Leukocytosis type: unspecified Qualified Code(s): D72.829 - Elevated white blood cell count, unspecified (6) Decubitus ulcer of sacral region, stage 1 Code(s): L89.151 - PRESSURE ULCER OF SACRAL REGION, STAGE 1 (7) Mobility impaired Code(s): Z74.09 - OTHER REDUCED MOBILITY (8) Vegetative state Code(s): R40.3 - PERSISTENT VEGETATIVE STATE (9) History of rheumatoid arthritis Code(s): Z87.39 - PERSONAL HISTORY OF DISEASES OF THE MS SYS AND CONN TISS (10) Degenerative arthritis Code(s): M19.90 - UNSPECIFIED OSTEOARTHRITIS, UNSPECIFIED SITE Qualifiers: Osteoarthritis type: unspecified Laterality: bilateral (11) Needs assistance while at home Code(s): Z74.2 - NEED FOR ASSIST AT HOME & NO HOUSE MEMB ABLE TO RENDER CARE
[2017-07-14] MEDS: DEXTROSE 5%-0.45% SALINE 1,000 ML IV SCH ×2 (17:43→18:50)
[2017-07-14] MEDS: methylPREDNISolone NA SUCC 40 MG/1 ML VIAL IVPB SCH (18:25)
[2017-07-15] MEDS: methylPREDNISolone NA SUCC 40 MG/1 ML VIAL IVPB SCH ×3 (01:51→17:26)
[2017-07-15 08:41] LABS: CHLORIDE 101 mmol/L (98-107); POTASSIUM 3.4 mmol/L (3.5-5.1); SODIUM 144 mmol/L (136-145)
[2017-07-15 08:54] LABS: ANION GAP 13 (8-16); BLOOD UREA NITROGEN 11 mg/dL (7-18); CALCIUM 8.5 mg/dL (8.5-10.1); CO2 30 mmol/L (21-32); CREATININE 0.5 mg/dL (0.55-1.02); GLUCOSE,RANDOM 196 mg/dL (74-106)
[2017-07-15] MEDS: ALBUTEROL SO4 2.5/IPRATROPIUM 0.5 INH SOL 3 ML VIAL.NEB. NEB SCH ×3 (09:17→20:49)
[2017-07-15] MEDS: PANTOPRAZOLE SODIUM 40 MG VIAL IVPUSH SCH (09:49)
[2017-07-15] MEDS: ENOXAPARIN NA (PORCINE) 40 MG/0.4 ML DISP.SYRIN SQ SCH (09:50)
--- NOTE | 2017-07-15 11:41 | PN ---
Progress Note, Physician History of Present Illness: Awake Not verbally responsive Rash nearly all resolved Breathing non labored No wheeze today Afebrile on steroids WBC WNL Blood c/s (-) - Current Medication List Current Medications: Active Medications Albuterol Sulfate (Ventolin 0.042trength) -) 1 amp NEB Q6H PRN PRN Reason: SHORT OF BREATH/WHEEZING Last Admin: 07/14/17 10:50 Dose: 1 amp Albuterol/Ipratropium (Duoneb -) 1 amp NEB RTID [facility] Last Admin: 07/15/17 09:17 Dose: 1 amp Diphenhydramine HCl (Benadryl -) 25 mg PO Q6H PRN PRN Reason: FOR ITCHING Last Admin: 07/12/17 14:57 Dose: 25 mg Docusate Sodium (Colace Liquid -) 100 mg PO DAILY PRN PRN Reason: CONSTIPATION Enoxaparin Sodium (Lovenox -) 40 mg SQ DAILY [facility] Last Admin: 07/15/17 09:50 Dose: 40 mg Dextrose/Sodium Chloride (D5-1/2ns -) 1,000 mls @ 100 mls/hr IV ASDIR [facility] Last Admin: 07/14/17 18:50 Dose: 100 mls/hr Levofloxacin (Levaquin 250 Mg Premixed Ivpb -) 250 mg in 50 mls @ 50 mls/hr IVPB DAILY [facility] Last Admin: 07/15/17 09:50 Dose: 50 mls/hr Methylprednisolone Sodium Succinate (Solu-Medrol -) 40 mg IVPB Q8H-IV [facility] Last Admin: 07/15/17 09:50 Dose: 40 mg Pantoprazole Sodium (Protonix Iv) 20 mg IVPUSH DAILY [facility] Last Admin: 07/15/17 09:49 Dose: 20 mg - Objective Vital Signs: Vital Signs Temperature 98.2 F 07/15/17 09:00 Pulse Rate 77 07/15/17 09:00 Respiratory Rate 18 07/15/17 09:00 Blood Pressure 124/68 07/15/17 09:00 O2 Sat by Pulse Oximetry (%) 90 L 07/14/17 21:00 Constitutional: Yes: No Distress Eyes: Yes: Conjunctiva Clear Cardiovascular: Yes: Regular Rate and Rhythm, S1, S2 Respiratory: Yes: Diminished Gastrointestinal: Yes: Normal Bowel Sounds, Soft Edema: No Labs: CBC, BMP 07/14/17 06:00 07/15/17 06:30 INR, PTT INR 0.96 (0.82-1.09) 07/10/17 14:05 Assessment/Plan RLL pneumonia improved Ceftriaxone allergy ( previous PCN allergy ) Possible sepsis secondary to pneumonia Lactic acidosis Asthma Continue Levaquin May substitute po levaquin for additional 7d Steroids
[2017-07-15] MEDS: DEXTROSE 5%-0.45% SALINE 1,000 ML IV SCH (16:56)
--- NOTE | 2017-07-15 17:15 | PN ---
Progress Note (short form) - Note Progress Note: >>>>>>>>>>>> medical <<<<<<<<<<<< Current Medications Albuterol Sulfate (Ventolin 0.042trength) -) 1 amp NEB Q6H PRN PRN Reason: SHORT OF BREATH/WHEEZING Last Admin: 07/14/17 10:50 Dose: 1 amp Albuterol/Ipratropium (Duoneb -) 1 amp NEB RTID [facility] Last Admin: 07/15/17 13:21 Dose: 1 amp Diphenhydramine HCl (Benadryl -) 25 mg PO Q6H PRN PRN Reason: FOR ITCHING Last Admin: 07/12/17 14:57 Dose: 25 mg Docusate Sodium (Colace Liquid -) 100 mg PO DAILY PRN PRN Reason: CONSTIPATION Enoxaparin Sodium (Lovenox -) 40 mg SQ DAILY [facility] Last Admin: 07/15/17 09:50 Dose: 40 mg Dextrose/Sodium Chloride (D5-1/2ns -) 1,000 mls @ 100 mls/hr IV ASDIR [facility] Last Admin: 07/15/17 16:56 Dose: 100 mls/hr Levofloxacin (Levaquin 250 Mg Premixed Ivpb -) 250 mg in 50 mls @ 50 mls/hr IVPB DAILY [facility] Last Admin: 07/15/17 09:50 Dose: 50 mls/hr Methylprednisolone Sodium Succinate (Solu-Medrol -) 40 mg IVPB Q8H-IV [facility] Last Admin: 07/15/17 09:50 Dose: 40 mg Pantoprazole Sodium (Protonix Iv) 20 mg IVPUSH DAILY [facility] Last Admin: 07/15/17 09:49 Dose: 20 mg Laboratory Results - last 24 hr 07/15/17 07/15/17 07/15/17 06:10 06:30 07:30 Sodium 144 Potassium 3.4 L Chloride 101 Carbon Dioxide 30 Anion Gap 13 BUN 11 Creatinine 0.5 L POC Glucometer 205 Random Glucose 196 H Lactic Acid 3.5 H* Calcium 8.5 Vital Signs Temperature 98.1 F 07/15/17 15:30 Pulse Rate 91 H 07/15/17 15:30 Respiratory Rate 20 07/15/17 15:30 Blood Pressure 119/63 07/15/17 15:30 O2 Sat by Pulse Oximetry (%) 95 03/30/18 09:00 CC: non communicative ```````````````````` skin--some flushing heart--RR lungs--less wheezing abd--soft ext--diffuse contractures, no CCE, pulses not felt neuro--cogn impairment; good eye contact; muted `````````````````````````````````` Summ > asthmatic exacerb--CXR unrevealing (see report) ; cont Iv steroid & neb Tx. > Rash--hyperemic rash attenuating; 2nd possible allergy to Antibiotic PLAN; cont steroid > PNA--Rt side; unable to obtain sputum; not coughing productively. PLAN may need repeat chest CT > Low TSH--T4 okay > HIgh Lactate--lower today, but will repeat > DM--high BGMs likely due to steroid effect > dementia--severe; cogn & physical impairment ~~~~~~~~~~~~~~~~~~~~~~~~~ Dr Harris Problem List - Problems (1) Acute asthma exacerbation Code(s): J45.901 - UNSPECIFIED ASTHMA WITH (ACUTE) EXACERBATION Qualifiers: Asthma severity: moderate Asthma persistence: persistent Qualified Code(s ): J45.41 - Moderate persistent asthma with (acute) exacerbation (2) Pneumonia Code(s): J18.9 - PNEUMONIA, UNSPECIFIED ORGANISM Qualifiers: Pneumonia type: due to unspecified organism Laterality: right Lung location: unspecified part of lung Qualified Code(s): J18.9 - Pneumonia, unspecified organism (3) Diabetes Code(s): E11.9 - TYPE 2 DIABETES MELLITUS WITHOUT COMPLICATIONS Qualifiers: Diabetes mellitus type: type 2 Diabetes mellitus complication status: with neurologic complications Diabetes mellitus complication detail: with other neurological complication (4) Hiatal hernia with gastroesophageal reflux Code(s): K21.9 - GASTRO-ESOPHAGEAL REFLUX DISEASE WITHOUT ESOPHAGITIS; K44.9 - DIAPHRAGMATIC HERNIA WITHOUT OBSTRUCTION OR GANGRENE (5) Leukocytosis Code(s): D72.829 - ELEVATED WHITE BLOOD CELL COUNT, UNSPECIFIED Qualifiers: Leukocytosis type: unspecified Qualified Code(s): D72.829 - Elevated white blood cell count, unspecified (6) Decubitus ulcer of sacral region, stage 1 Code(s): L89.151 - PRESSURE ULCER OF SACRAL REGION, STAGE 1 (7) Mobility impaired Code(s): Z74.09 - OTHER REDUCED MOBILITY (8) Vegetative state Code(s): R40.3 - PERSISTENT VEGETATIVE STATE (9) History of rheumatoid arthritis Code(s): Z87.39 - PERSONAL HISTORY OF DISEASES OF THE MS SYS AND CONN TISS (10) Degenerative arthritis Code(s): M19.90 - UNSPECIFIED OSTEOARTHRITIS, UNSPECIFIED SITE Qualifiers: Osteoarthritis type: unspecified Laterality: bilateral (11) Needs assistance while at home Code(s): Z74.2 - NEED FOR ASSIST AT HOME & NO HOUSE MEMB ABLE TO RENDER CARE
[2017-07-15] MEDS: ALBUTEROL SO4 0.042% IH SOL 1.25 MG/3 ML VIAL.NEB NEB PRN (18:50)
[2017-07-16] MEDS: methylPREDNISolone NA SUCC 40 MG/1 ML VIAL IVPB SCH ×2 (01:34→11:17)
[2017-07-16] MEDS: DEXTROSE 5%-0.45% SALINE 1,000 ML IV SCH (03:00)
[2017-07-16] MEDS: ALBUTEROL SO4 2.5/IPRATROPIUM 0.5 INH SOL 3 ML VIAL.NEB. NEB SCH ×3 (07:50→20:30)
[2017-07-16 08:40] LABS: ANION GAP 9 (8-16); BLOOD UREA NITROGEN 14 mg/dL (7-18); CALCIUM 8.5 mg/dL (8.5-10.1); CHLORIDE 99 mmol/L (98-107); CO2 33 mmol/L (21-32); CREATININE 0.6 mg/dL (0.55-1.02); GLUCOSE,RANDOM 193 mg/dL (74-106); POTASSIUM 3.8 mmol/L (3.5-5.1); SODIUM 141 mmol/L (136-145)
[2017-07-16] MEDS: PANTOPRAZOLE SODIUM 40 MG VIAL IVPUSH SCH (11:19)
[2017-07-16] MEDS: ENOXAPARIN NA (PORCINE) 40 MG/0.4 ML DISP.SYRIN SQ SCH (11:20)
--- NOTE | 2017-07-16 15:11 | PN ---
Progress Note (short form) - Note Progress Note: <<<<<<<<<<<<< medical note >>>>>>>>>>>> Current Medications Albuterol Sulfate (Ventolin 0.042trength) -) 1 amp NEB Q6H PRN PRN Reason: SHORT OF BREATH/WHEEZING Last Admin: 07/15/17 18:50 Dose: 1 amp Albuterol/Ipratropium (Duoneb -) 1 amp NEB RTID [facility] Last Admin: 07/16/17 07:50 Dose: 1 amp Diphenhydramine HCl (Benadryl -) 25 mg PO Q6H PRN PRN Reason: FOR ITCHING Last Admin: 07/12/17 14:57 Dose: 25 mg Docusate Sodium (Colace Liquid -) 100 mg PO DAILY PRN PRN Reason: CONSTIPATION Enoxaparin Sodium (Lovenox -) 40 mg SQ DAILY [facility] Last Admin: 07/16/17 11:20 Dose: 40 mg Dextrose/Sodium Chloride (D5-1/2ns -) 1,000 mls @ 100 mls/hr IV ASDIR [facility] Last Admin: 07/16/17 03:00 Dose: 100 mls/hr Levofloxacin (Levaquin 250 Mg Premixed Ivpb -) 250 mg in 50 mls @ 50 mls/hr IVPB DAILY [facility] Last Admin: 07/16/17 11:21 Dose: 50 mls/hr Methylprednisolone Sodium Succinate (Solu-Medrol -) 40 mg IVPB Q8H-IV [facility] Last Admin: 07/16/17 11:17 Dose: 40 mg Pantoprazole Sodium (Protonix Iv) 20 mg IVPUSH DAILY [facility] Last Admin: 07/16/17 11:19 Dose: 20 mg Laboratory Results - last 24 hr 07/15/17 07/16/17 07/16/17 17:21 07:05 07:07 Sodium 141 Potassium 3.8 Chloride 99 Carbon Dioxide 33 H Anion Gap 9 BUN 14 Creatinine 0.6 POC Glucometer 215 Random Glucose 193 H Lactic Acid 3.6 H* Calcium 8.5 Vital Signs Temperature 96.8 F L 07/16/17 08:10 Pulse Rate 71 07/16/17 08:10 Respiratory Rate 20 07/16/17 08:10 Blood Pressure 145/69 07/16/17 08:10 O2 Sat by Pulse Oximetry (%) 97 07/16/17 09:00 CC: non communicative ```````````````````` skin--trunk & facial flushing heart--RR lungs--less wheezing abd--soft ext--diffuse contractures, no CCE, pulses not felt neuro--cogn impairment; good eye contact; muted `````````````````````````````````` Summ > asthmatic exacerb--CXR unrevealing (see report) ;change to PO steroid > Rash--hyperemic rash more fiery today (compared to 07/15/17); reasons unsure; could be due to the steroid itself, or even the lovenox > PNA--Rt side; unable to obtain sputum; not coughing productively. PLAN may need repeat chest CT > Low TSH--T4 okay > HIgh Lactate--remains high despite 1]oxygenating well 2] NL Co2 3] no evidence of sepsis PLAN: check LFTs; repeat levels in AM > DM--high BGMs likely due to steroid effect, and the PPI > dementia--severe ; cogn & physical impairment (functional quad). ~~~~~~~~~~~~~~~~~~~~~~~~~ Dr Harris Problem List - Problems (1) Acute asthma exacerbation Code(s): J45.901 - UNSPECIFIED ASTHMA WITH (ACUTE) EXACERBATION Qualifiers: Asthma severity: moderate Asthma persistence: persistent Qualified Code(s ): J45.41 - Moderate persistent asthma with (acute) exacerbation (2) Pneumonia Code(s): J18.9 - PNEUMONIA, UNSPECIFIED ORGANISM Qualifiers: Pneumonia type: due to unspecified organism Laterality: right Lung location: unspecified part of lung Qualified Code(s): J18.9 - Pneumonia, unspecified organism (3) Diabetes Code(s): E11.9 - TYPE 2 DIABETES MELLITUS WITHOUT COMPLICATIONS Qualifiers: Diabetes mellitus type: type 2 Diabetes mellitus complication status: with neurologic complications Diabetes mellitus complication detail: with other neurological complication (4) Hiatal hernia with gastroesophageal reflux Code(s): K21.9 - GASTRO-ESOPHAGEAL REFLUX DISEASE WITHOUT ESOPHAGITIS; K44.9 - DIAPHRAGMATIC HERNIA WITHOUT OBSTRUCTION OR GANGRENE (5) Leukocytosis Code(s): D72.829 - ELEVATED WHITE BLOOD CELL COUNT, UNSPECIFIED Qualifiers: Leukocytosis type: unspecified Qualified Code(s): D72.829 - Elevated white blood cell count, unspecified (6) Decubitus ulcer of sacral region, stage 1 Code(s): L89.151 - PRESSURE ULCER OF SACRAL REGION, STAGE 1 (7) Mobility impaired Code(s): Z74.09 - OTHER REDUCED MOBILITY (8) Vegetative state Code(s): R40.3 - PERSISTENT VEGETATIVE STATE (9) History of rheumatoid arthritis Code(s): Z87.39 - PERSONAL HISTORY OF DISEASES OF THE MS SYS AND CONN TISS (10) Degenerative arthritis Code(s): M19.90 - UNSPECIFIED OSTEOARTHRITIS, UNSPECIFIED SITE Qualifiers: Osteoarthritis type: unspecified Laterality: bilateral (11) Needs assistance while at home Code(s): Z74.2 - NEED FOR ASSIST AT HOME & NO HOUSE MEMB ABLE TO RENDER CARE
[2017-07-16] MEDS: predniSONE 20 MG TABLET (UD) PO SCH (22:04)
[2017-07-17] MEDS: ALBUTEROL SO4 2.5/IPRATROPIUM 0.5 INH SOL 3 ML VIAL.NEB. NEB SCH ×3 (07:45→20:54)
[2017-07-17 08:48] LABS: HEMATOCRIT 37.7 % (32.4-45.2); HEMOGLOBIN 12.5 GM/dL (10.7-15.3); MCH 29.2 pg (25.7-33.7); MCHC 33.3 g/dl (32.0-36.0); MEAN CELL VOLUME 87.8 fl (80-96); MEAN PLT VOLUME 8.8 fl (7.5-11.1); PLATELET COUNT 192 K/MM3 (134-434); RBC 4.29 M/mm3 (3.60-5.2); RDW 15.4 % (11.6-15.6)
[2017-07-17 09:22] LABS: CHLORIDE 102 mmol/L (98-107); SODIUM 141 mmol/L (136-145)
[2017-07-17 09:27] LABS: ALBUMIN 2.9 g/dl (3.4-5.0); ALK PHOS 64 U/L (45-117); ANION GAP 8 (8-16); BILIRUBIN,TOTAL 0.2 mg/dL (0.2-1.0); BLOOD UREA NITROGEN 15 mg/dL (7-18); CALCIUM 8.8 mg/dL (8.5-10.1); CO2 31 mmol/L (21-32); CREATININE 0.5 mg/dL (0.55-1.02); GLUCOSE,RANDOM 150 mg/dL (74-106); SGPT/ALT 27 U/L (12-78); TOT PROT 6.2 g/dl (6.4-8.2)
[2017-07-17 09:28] LABS: POTASSIUM 4.4 mmol/L (3.5-5.1); SGOT/AST 15 U/L (15-37)
[2017-07-17] MEDS ORDERED: PT OWN MED DRAWER 7, Y5N ONE ×2 (09:39→09:44)
[2017-07-17] MEDS: predniSONE 20 MG TABLET (UD) PO SCH ×2 (09:43→22:10)
[2017-07-17] MEDS: RANITIDINE HCL 150 MG/10 ML UNIT-DOSE PO SCH (09:43)
[2017-07-17] MEDS: AZITHROMYCIN 200 MG/5 ML BOTTLE PO SCH (09:46)
[2017-07-17 11:47] LABS: ACANTHOCYTES 0; ANISOCYTOSIS 0; HELMET CELLS 0; HOWELL-JOLLY BODIES 0; MACROCYTOSIS 0; OVALOCYTE 0; PLATELET ESTIMATE NORMAL; ROULEAU 0; SICKELED CELLS 0; TARGET CELLS 0; TEAR DROP CELLS 0; TOXIC GRANULATION 0
--- NOTE | 2017-07-17 13:55 | PN ---
Progress Note (short form) - Note Progress Note: medical Current Medications Albuterol Sulfate (Ventolin 0.042trength) -) 1 amp NEB Q6H PRN PRN Reason: SHORT OF BREATH/WHEEZING Last Admin: 07/15/17 18:50 Dose: 1 amp Albuterol/Ipratropium (Duoneb -) 1 amp NEB RTID [facility] Last Admin: 07/17/17 07:45 Dose: 1 amp Azithromycin (Zithromax 200mg/5ml Suspension -) 200 mg PO DAILY [facility] Stop: 07/20/17 10:01 Last Admin: 07/17/17 09:46 Dose: 200 mg Diphenhydramine HCl (Benadryl -) 25 mg PO Q6H PRN PRN Reason: FOR ITCHING Last Admin: 07/12/17 14:57 Dose: 25 mg Docusate Sodium (Colace Liquid -) 100 mg PO DAILY PRN PRN Reason: CONSTIPATION Prednisone (Deltasone -) 40 mg PO BID [facility] Last Admin: 07/17/17 09:43 Dose: 40 mg Ranitidine HCl (Zantac Oral Solution -) 150 mg PO DAILY [facility] Last Admin: 07/17/17 09:43 Dose: 150 mg Laboratory Results - last 24 hr 07/16/17 07/17/17 07/17/17 16:45 06:17 07:00 WBC 11.0 H D RBC 4.29 Hgb 12.5 Hct 37.7 MCV 87.8 MCH 29.2 MCHC 33.3 RDW 15.4 Plt Count 192 MPV 8.8 Neutrophils % No Result Required. Neutrophils % (Manual) 89.9 H Band Neutrophils % 0.0 Lymphocytes % No Result Required. Lymphocytes % (Manual) 4.0 L Monocytes % (Manual) 5 Eosinophils % (Manual) 0.0 Basophils % (Manual) 0.0 Myelocytes % (Man) 0 Promyelocytes % (Man) 0 Blast Cells % (Manual) 0 Nucleated RBC % 0 Metamyelocytes 0 Hypochromia 0 Toxic Granulation 0 Dohle Bodies 0 Platelet Estimate Normal Polychromasia 0 Poikilocytosis 0 Basophilic Stippling 0 Anisocytosis 0 Microcytosis 0 Macrocytosis 0 Spherocytes 0 Sickle Cells 0 Target Cells 0 Tear Drop Cells 0 Ovalocytes 0 Stomatocytes 0 Helmet Cells 0 [place] Bodies 0 [place] Rings 0 Amandeep Cells 0 Acanthocytes (Spur) 0 Rouleaux 0 Fragmented RBCs 0 Schistocytes 0 Sodium Potassium Chloride Carbon Dioxide Anion Gap BUN Creatinine Creat Clearance w eGFR POC Glucometer 261 176 Random Glucose Lactic Acid Calcium Total Bilirubin AST ALT Alkaline Phosphatase Total Protein Albumin 07/17/17 07/17/17 07:00 07:45 WBC RBC Hgb Hct MCV MCH MCHC RDW Plt Count MPV Neutrophils % Neutrophils % (Manual) Band Neutrophils % Lymphocytes % Lymphocytes % (Manual) Monocytes % (Manual) Eosinophils % (Manual) Basophils % (Manual) Myelocytes % (Man) Promyelocytes % (Man) Blast Cells % (Manual) Nucleated RBC % Metamyelocytes Hypochromia Toxic Granulation Dohle Bodies Platelet Estimate Polychromasia Poikilocytosis Basophilic Stippling Anisocytosis Microcytosis Macrocytosis Spherocytes Sickle Cells Target Cells Tear Drop Cells Ovalocytes Stomatocytes Helmet Cells [place] Bodies [place] Rings Amandeep Cells Acanthocytes (Spur) Rouleaux Fragmented RBCs Schistocytes Sodium 141 Potassium 4.4 Chloride 102 Carbon Dioxide 31 Anion Gap 8 BUN 15 Creatinine 0.5 L Creat Clearance w eGFR > 60 POC Glucometer Random Glucose 150 H Lactic Acid 3.2 H* Calcium 8.8 Total Bilirubin 0.2 AST 15 ALT 27 Alkaline Phosphatase 64 Total Protein 6.2 L Albumin 2.9 L CC: non communicative ```````````````````` skin--trunk & facial flushing (decreaased) heart--RR lungs--less wheezing abd--soft ext--diffuse contractures, no CCE, pulses not felt; no acute ischemic changes neuro--cogn impairment; good eye contact; muted `````````````````````````````````` Summ > asthmatic exacerb--CXR unrevealing (see report) ;changed to PO steroid > Rash--hyperemic rash less fiery today ; could be due to the steroid itself, or even the lovenox > PNA--Rt side; unable to obtain sputum; not coughing productively. PLAN await repeat chest CT > Low TSH--T4 okay > HIgh Lactate--less than yesterday; no hypoxia; hepatic dz (by LFTs); no evidence of sepsis PLAN: repeat levels in AM > DM--high BGMs likely due to steroid effect, and the PPI > dementia--severe ; cogn & physical impairment (functional quad). ~~~~~~~~~~~~~~~~~~~~~~~~~ Dr Harris Problem List - Problems (1) Acute asthma exacerbation Code(s): J45.901 - UNSPECIFIED ASTHMA WITH (ACUTE) EXACERBATION Qualifiers: Asthma severity: moderate Asthma persistence: persistent Qualified Code(s ): J45.41 - Moderate persistent asthma with (acute) exacerbation (2) Pneumonia Code(s): J18.9 - PNEUMONIA, UNSPECIFIED ORGANISM Qualifiers: Pneumonia type: due to unspecified organism Laterality: right Lung location: unspecified part of lung Qualified Code(s): J18.9 - Pneumonia, unspecified organism (3) Diabetes Code(s): E11.9 - TYPE 2 DIABETES MELLITUS WITHOUT COMPLICATIONS Qualifiers: Diabetes mellitus type: type 2 Diabetes mellitus complication status: with neurologic complications Diabetes mellitus complication detail: with other neurological complication (4) Hiatal hernia with gastroesophageal reflux Code(s): K21.9 - GASTRO-ESOPHAGEAL REFLUX DISEASE WITHOUT ESOPHAGITIS; K44.9 - DIAPHRAGMATIC HERNIA WITHOUT OBSTRUCTION OR GANGRENE (5) Leukocytosis Code(s): D72.829 - ELEVATED WHITE BLOOD CELL COUNT, UNSPECIFIED Qualifiers: Leukocytosis type: unspecified Qualified Code(s): D72.829 - Elevated white blood cell count, unspecified (6) Decubitus ulcer of sacral region, stage 1 Code(s): L89.151 - PRESSURE ULCER OF SACRAL REGION, STAGE 1 (7) Mobility impaired Code(s): Z74.09 - OTHER REDUCED MOBILITY (8) Vegetative state Code(s): R40.3 - PERSISTENT VEGETATIVE STATE (9) History of rheumatoid arthritis Code(s): Z87.39 - PERSONAL HISTORY OF DISEASES OF THE MS SYS AND CONN TISS (10) Degenerative arthritis Code(s): M19.90 - UNSPECIFIED OSTEOARTHRITIS, UNSPECIFIED SITE Qualifiers: Osteoarthritis type: unspecified Laterality: bilateral (11) Needs assistance while at home Code(s): Z74.2 - NEED FOR ASSIST AT HOME & NO HOUSE MEMB ABLE TO RENDER CARE
[2017-07-18] MEDS: ALBUTEROL SO4 2.5/IPRATROPIUM 0.5 INH SOL 3 ML VIAL.NEB. NEB SCH ×3 (07:25→20:30)
[2017-07-18] MEDS: RANITIDINE HCL 150 MG/10 ML UNIT-DOSE PO SCH (09:54)
[2017-07-18] MEDS: predniSONE 20 MG TABLET (UD) PO SCH ×2 (09:54→22:07)
[2017-07-18] MEDS: AZITHROMYCIN 200 MG/5 ML BOTTLE PO SCH (09:55)
[2017-07-18] MEDS ORDERED: SODIUM PHOSPHATE/NA BIPHOS 133 ML ENEMA PR ONE (13:45)
--- NOTE | 2017-07-18 13:50 | PN ---
Progress Note (short form) - Note Progress Note: ^^^^^^^^^^^^^ medical note ^^^^^^^^^^ Current Medications Albuterol Sulfate (Ventolin 0.042trength) -) 1 amp NEB Q6H PRN PRN Reason: SHORT OF BREATH/WHEEZING Last Admin: 07/15/17 18:50 Dose: 1 amp Albuterol/Ipratropium (Duoneb -) 1 amp NEB RTID [facility] Last Admin: 07/18/17 07:25 Dose: 1 amp Azithromycin (Zithromax 200mg/5ml Suspension -) 200 mg PO DAILY [facility] Stop: 07/20/17 10:01 Last Admin: 07/18/17 09:55 Dose: 200 mg Diphenhydramine HCl (Benadryl -) 25 mg PO Q6H PRN PRN Reason: FOR ITCHING Last Admin: 07/12/17 14:57 Dose: 25 mg Docusate Sodium (Colace Liquid -) 100 mg PO DAILY PRN PRN Reason: CONSTIPATION Prednisone (Deltasone -) 40 mg PO BID [facility] Last Admin: 07/18/17 09:54 Dose: 40 mg Ranitidine HCl (Zantac Oral Solution -) 150 mg PO DAILY [facility] Last Admin: 07/18/17 09:54 Dose: 150 mg Sodium Phosphate (Fleet Adult Rectal Enema -) [address] ONCE ONE Stop: 07/18/17 13:46 Laboratory Results - last 24 hr 07/17/17 07/18/17 07/18/17 16:38 06:30 08:03 POC Glucometer 262 140 Lactic Acid 4.0 H* Vital Signs Temperature 98.3 F 07/18/17 09:45 Pulse Rate 85 07/18/17 09:45 Respiratory Rate 20 07/18/17 09:45 Blood Pressure 123/69 07/18/17 09:45 O2 Sat by Pulse Oximetry (%) 97 07/18/17 09:00 CC: non communicative ```````````````````` skin--buttock redness heart--RR lungs--less wheezing, unlabored abd--soft ext--diffuse contractures, no CCE, pulses not felt; no acute ischemic changes neuro--cogn impairment; good eye contact; muted `````````````````````````````````` Summ > asthmatic exacerb--CXR unrevealing (see report) ;changed to PO steroid, will gradually decrease > Rash--abating ; could be due to the steroid itself, or even the lovenox > PNA--Rt side; unable to obtain sputum; not coughing productively. PLAN await repeat chest CT > Low TSH--T4 okay > HIgh Lactate--has again risen back up; no hypoxia; hepatic dz (by LFTs); no evidence of sepsis PLAN: renal eval > DM--high BGMs likely due to steroid effect, and the PPI > dementia--severe ; cogn & physical impairment (functional quad). ~~~~~~~~~~~~~~~~~~~~~~~~~ Dr Harris Problem List - Problems (1) Acute asthma exacerbation Code(s): J45.901 - UNSPECIFIED ASTHMA WITH (ACUTE) EXACERBATION Qualifiers: Asthma severity: moderate Asthma persistence: persistent Qualified Code(s ): J45.41 - Moderate persistent asthma with (acute) exacerbation (2) Pneumonia Code(s): J18.9 - PNEUMONIA, UNSPECIFIED ORGANISM Qualifiers: Pneumonia type: due to unspecified organism Laterality: right Lung location: unspecified part of lung Qualified Code(s): J18.9 - Pneumonia, unspecified organism (3) Diabetes Code(s): E11.9 - TYPE 2 DIABETES MELLITUS WITHOUT COMPLICATIONS Qualifiers: Diabetes mellitus type: type 2 Diabetes mellitus complication status: with neurologic complications Diabetes mellitus complication detail: with other neurological complication (4) Hiatal hernia with gastroesophageal reflux Code(s): K21.9 - GASTRO-ESOPHAGEAL REFLUX DISEASE WITHOUT ESOPHAGITIS; K44.9 - DIAPHRAGMATIC HERNIA WITHOUT OBSTRUCTION OR GANGRENE (5) Leukocytosis Code(s): D72.829 - ELEVATED WHITE BLOOD CELL COUNT, UNSPECIFIED Qualifiers: Leukocytosis type: unspecified Qualified Code(s): D72.829 - Elevated white blood cell count, unspecified (6) Decubitus ulcer of sacral region, stage 1 Code(s): L89.151 - PRESSURE ULCER OF SACRAL REGION, STAGE 1 (7) Mobility impaired Code(s): Z74.09 - OTHER REDUCED MOBILITY (8) Vegetative state Code(s): R40.3 - PERSISTENT VEGETATIVE STATE (9) History of rheumatoid arthritis Code(s): Z87.39 - PERSONAL HISTORY OF DISEASES OF THE MS SYS AND CONN TISS (10) Degenerative arthritis Code(s): M19.90 - UNSPECIFIED OSTEOARTHRITIS, UNSPECIFIED SITE Qualifiers: Osteoarthritis type: unspecified Laterality: bilateral (11) Needs assistance while at home Code(s): Z74.2 - NEED FOR ASSIST AT HOME & NO HOUSE MEMB ABLE TO RENDER CARE
[2017-07-18] MEDS: NYSTATIN POWDER 100,000 UNITS/GM - 15 GM TOPICAL POWDER TP SCH ×2 (17:21→22:07)
--- NOTE | 2017-07-18 18:29 | PN ---
Progress Note (short form) - Note Progress Note: Renal Consult for elevated lactate This is a 87 year old woman with PMhx of Advanced dementia, Asthma, Hypertension , DM, HLD, Hx of UTI's who presented with cough and wheezing and found to have a Asthma Exacerbation with elevated LA. PMhx: as above Allergies: PNC, Ceftrixaone Family hx: NC Social hx: No T/A/D ROS: as per HPI Home Medications Medication Instructions Recorded Montelukast Na [Singulair -] 10 mg PO HS tablet 09/21/15 Sennosides [Senna -] 1 tab PO DAILY PRN 08/18/16 predniSONE [Deltasone -] 5 mg PO DAILY 08/18/16 Calcium Carbonate/Vitamin D3 1 each PO DAILY 07/10/17 [Calcium 500 + Vit D Caplet] Ipratropium [place] 0.5 mg NEB TID 07/10/17 Zolpidem Tartrate [Ambien] 5 mg PO HS 07/10/17 Vital Signs Temperature 98.1 F 07/18/17 15:24 Pulse Rate 77 07/18/17 15:24 Respiratory Rate 22 07/18/17 15:24 Blood Pressure 129/76 07/18/17 15:24 O2 Sat by Pulse Oximetry (%) 97 07/18/17 09:00 Intake & Output 07/15/17 07/16/17 07/17/17 07/18/17 23:59 23:59 23:59 23:59 Intake Total 2350 592 0 Balance 2350 592 0 NAD on RA non-verbal RRR CTA (anterior exam) soft NT/ND no LE edema CBC, BMP 07/17/17 07:00 07/17/17 07:00 Current Medications Albuterol Sulfate (Ventolin 0.042trength) -) 1 amp NEB Q6H PRN PRN Reason: SHORT OF BREATH/WHEEZING Last Admin: 07/15/17 18:50 Dose: 1 amp Albuterol/Ipratropium (Duoneb -) 1 amp NEB RTID [facility] Last Admin: 07/18/17 14:19 Dose: 1 amp Azithromycin (Zithromax 200mg/5ml Suspension -) 200 mg PO DAILY [facility] Stop: 07/20/17 10:01 Last Admin: 07/18/17 09:55 Dose: 200 mg Diphenhydramine HCl (Benadryl -) 25 mg PO Q6H PRN PRN Reason: FOR ITCHING Last Admin: 07/12/17 14:57 Dose: 25 mg Docusate Sodium (Colace Liquid -) 100 mg PO DAILY PRN PRN Reason: CONSTIPATION Nystatin (Nystop Powder -) 1 applic TP TID [facility] Last Admin: 07/18/17 17:21 Dose: 1 appful Prednisone (Deltasone -) 40 mg PO BID [facility] Last Admin: 07/18/17 09:54 Dose: 40 mg Ranitidine HCl (Zantac Oral Solution -) 150 mg PO DAILY [facility] Last Admin: 07/18/17 09:54 Dose: 150 mg 87 year old woman with PMhx of Advanced dementia, Asthma, Hypertension, DM, HLD , Hx of UTI's who presented with cough and wheezing and found to have a Asthma Exacerbation with elevated LA. #Elevated Lactate #Asthma Exacerbation Pt has a elevated Lactate in setting of normal BP, normal to high serum bicab levels pt with preserved O2 on vitals and thus should have normal profusion elevation in lactate w/o overt acidosis can be seen in patients getting b- agonist therapy in asthma and COPD the significance of this elevation is unclear as pt does not have a overt acidosis can continue Nebs and steroids as needed no need for IVF or vasopressers pt with similar elevation in LA on her prior admission Thank you Gato Lorenzo DO
[2017-07-19] MEDS: NYSTATIN POWDER 100,000 UNITS/GM - 15 GM TOPICAL POWDER TP SCH ×3 (06:20→21:49)
[2017-07-19] MEDS: ALBUTEROL SO4 2.5/IPRATROPIUM 0.5 INH SOL 3 ML VIAL.NEB. NEB SCH ×3 (08:10→21:32)
[2017-07-19] MEDS ORDERED: PT OWN MED DRAWER 7, Y5N ONE (11:02)
[2017-07-19] MEDS: AZITHROMYCIN 200 MG/5 ML BOTTLE PO SCH (11:04)
[2017-07-19] MEDS: RANITIDINE HCL 150 MG/10 ML UNIT-DOSE PO SCH (11:05)
[2017-07-19] MEDS: predniSONE 20 MG TABLET (UD) PO SCH ×2 (11:05→21:49)
--- NOTE | 2017-07-19 18:03 | DS ---
Physical Examination Vital Signs: Vital Signs Temperature 98.2 F 07/19/17 17:17 Pulse Rate 79 07/19/17 17:17 Respiratory Rate 20 07/19/17 17:17 Blood Pressure 134/60 07/19/17 17:17 O2 Sat by Pulse Oximetry (%) 98 07/19/17 09:00 Constitutional: Yes: No Distress Eyes: Yes: Conjunctiva Clear, EOM Intact Cardiovascular: Yes: Regular Rate and Rhythm Respiratory: Yes: Diminished Gastrointestinal: Yes: Soft Musculoskeletal: Yes: Joint Stiffness, Other (contractures) Extremities: Yes: Deformity, Erythema, Other (contractures) Edema: No Peripheral Pulses: Left Doralis Pedis: 0, Right Dorsalis Pedis: 0 Integumentary: Yes: Rash (back & buttock) Neurological: Yes: Other (severely demented; non communicative; non verbal; fully dependant) Labs: CBC, BMP 07/17/17 07:00 07/17/17 07:00 Discharge Summary Reason For Visit: PNEUMONIA Current Active Problem Decubitus ulcer of sacral region, stage 1 (Acute) Degenerative arthritis (Acute) History of rheumatoid arthritis (Acute) Needs assistance while at home (Acute) Pneumonia (Acute) asthmatic exacerbation thyroid nodule (on CT) atelectasis (on CT) 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 Findings reveal bilat wheezing; given steroids ; neb Tx; antibiotics; oxygen; fluids. The chest CT scan revealed infiltrates; hiatal hernia; chronic changes. She was found to have a high lactate level but was deemed to be of no consequence given her clinical status. She improved slowly on a clinical basis requyiring less and les steroids. She developed a diffuse rash early that was thought to be a an allergic reaction to meds but was more likley due to high dose steroids. The rash dissipated as the steroid was lowered. She was unchanged mental status hall; she was awake; able to have good eye contact but unable to converse or make needs known in any way. Condition: Improved - Instructions Diet, Activity, Other Instructions: crush all solid medications resume diet as usual give nebulizers 3 times a day give methyl-prednisolone dose barney before resuming the daily prednisone apply antifungal powder to back & buttock apply adhesive to sacral sore Referrals: Israel Harris MD [Staff Physician] - Disposition: HOME - Home Medications Comprehensive Discharge Medication List: Ambulatory Orders Montelukast Na [Singulair -] 10 mg PO HS tablet 09/21/15 Sennosides [Senna -] 1 tab PO DAILY PRN 08/18/16 predniSONE [Deltasone -] 5 mg PO DAILY 08/18/16 Calcium Carbonate/Vitamin D3 [Calcium 500 + Vit D Caplet] 1 each PO DAILY Ipratropium [place] 0.5 mg NEB TID 07/10/17 Zolpidem Tartrate [Ambien] 5 mg PO HS 07/10/17 Zithromax suspension 200mg QD for 10 days nystatin topoical powder TID Medrol dose barney 4mg taper
[2017-07-20] MEDS: NYSTATIN POWDER 100,000 UNITS/GM - 15 GM TOPICAL POWDER TP SCH ×2 (06:26→15:30)
[2017-07-20] MEDS: ALBUTEROL SO4 2.5/IPRATROPIUM 0.5 INH SOL 3 ML VIAL.NEB. NEB SCH ×2 (08:04→13:48)
[2017-07-20] MEDS: RANITIDINE HCL 150 MG/10 ML UNIT-DOSE PO SCH (09:37)
[2017-07-20] MEDS: predniSONE 20 MG TABLET (UD) PO SCH (09:38)
[2017-07-20] MEDS: AZITHROMYCIN 200 MG/5 ML BOTTLE PO SCH (11:30)
[2017-07-20] MEDS ORDERED: PT OWN MED DRAWER 7, Y5N ONE (14:51)
[2017-07-20] MEDS ORDERED: predniSONE 20 MG TABLET (UD) PO STA (15:55)
[2017-07-20 16:24] VITALS: BP 114/55; PULSE 96; TEMP 97.8
== END 2017-07-20 17:53 | disposition home or self-care (01) | DRG 193 ==
LOC: JER 12:55 → JERBED 16:55 → J8W 07-11 04:50
PROVIDERS: ADMIT Internal Medicine; ATTEND Internal Medicine
DX: J18.9 Pneumonia, unspecified organism (principal); R53.2 Functional quadriplegia; J98.11 Atelectasis; E87.2 Acidosis; J45.41 Moderate persistent asthma with (acute) exacerbation; L89.151 Pressure ulcer of sacral region, stage 1; F03.90 Unspecified dementia, unspecified severity, without behavioral disturbance, psychotic disturbance, mood disturbance, and anxiety; K59.00 Constipation, unspecified; E11.9 Type 2 diabetes mellitus without complications; E78.5 Hyperlipidemia, unspecified; R21 Rash and other nonspecific skin eruption; D72.829 Elevated white blood cell count, unspecified; K21.9 Gastro-esophageal reflux disease without esophagitis; F09 Unspecified mental disorder due to known physiological condition; Z88.0 Allergy status to penicillin
CPT/HCPCS: 36415; 71045-TC-FY; 71250-TC; 80048; 80053; 81003; 81015; 82550; 82962; 83036; 83605; 83735; 83880; 84439; 84443; 84484; 85025; 85027; 85610; 85730; 87040; 87804; 93005; 93010; 94640; 99285-25; J7030

== ENCOUNTER 2018-08-20 21:33 | Inpatient (IN) | payer OTHER ==
--- NOTE | 2018-08-20 21:42 | PDOC ---
History of Present Illness - General Stated Complaint: SOB Time Seen by Provider: 08/20/18 21:41 - History of Present Illness Initial Comments: 08/20/18 21:54 The patient is an 88 year old female with a history of HTN, DM, Dementia, Asthma who presents for evaluation of respiratory distress. Per the patient's aid and EMS, the patient has been experiencing increasingly difficulty breathing and shortness of breath throughout the day today. She received her 3 daily ipratroprium treatments with no improvement in her symptoms. The patient' s home health aid noted her respiratory distress and called EMS. On EMS arrival , the patient had an O2 saturation of 85% and was treated with 1 Duoneb with improvement of her O2 sat to 89%. The patient was placed on Cpap with improvement in her O2 Sat to 95%. On arrival to the ED, the patient is unable to participate in history taking given her dementia and respiratory distress. ROS is unobtainable for those reasons. Per the patient's son and healthcare proxy, the patient is DNR/DNI and notes that she has had multiple admissions in the past for pneumonia. Past History - Past Medical History Allergies/Adverse Reactions: Allergies Allergy/AdvReac Type Severity Reaction Status Date / Time ceftriaxone Allergy Intermediate Rash Verified 07/13/17 12:40 Penicillins Allergy Intermediate Rash Verified 07/13/17 12:38 Home Medications: Ambulatory Orders Montelukast Na [Singulair -] 10 mg PO HS tablet 09/21/15 Sennosides [Senna -] 1 tab PO DAILY PRN 08/18/16 predniSONE [Deltasone -] 5 mg PO DAILY 08/18/16 Calcium Carbonate/Vitamin D3 [Calcium 500 + Vit D Caplet] 1 each PO DAILY Ipratropium Cope 0.5 mg NEB TID 07/10/17 Zolpidem Tartrate [Ambien] 5 mg PO HS 07/10/17 Anemia: Yes Asthma: Yes Cancer: No CVA: Yes COPD: No CHF: No Dementia: Yes Diabetes: Yes Disorders: No HTN: Yes Hypercholesterolemia: No Liver Disease: No Seizures: No Thyroid Disease: No - Surgical History Appendectomy: No Cholecystectomy: No Orthopedic Surgery: No - Suicide/Smoking/Psychosocial Hx Smoking Status: No Smoking History: Unknown if ever smoked Have you smoked in the past 12 months: No Number of Cigarettes Smoked Daily: 0 Hx Alcohol Use: No Drug/Substance Use Hx: No Substance Use Type: None Hx Substance Use Treatment: No Review of Systems - Review of Systems Able to Perform ROS?: No (Dementia/Diff breathing) *Physical Exam - Physical Exam Comments: 08/20/18 22:00 General Appearance: Nourished. No Apparent Distress HEENT: EOMI, GABO. No Pharyngeal Erythema, Tonsillar Exudate, Tonsillar Erythema Neck: No Cervical Lymphadenopathy Respiratory/Chest: Scattered mild diffuse expiratory wheezing with bibasilar rales noted on exam. No Crackles, Rhonchi, Cardiovascular: Regular Rhythm, Regular Rate. No Murmur, Gallops, Rubs Gastrointestinal/Abdominal: Normal Bowel Sounds, Soft. No Guarding, Rebound, Tenderness Musculoskeletal: No CVA Tenderness Extremity: Normal Capillary Refill Integumentary: Normal Color, Dry, Warm Neurologic: Alert, Normal Mood/Affect, Unable to fully assess due to respiratory distress. ED Treatment Course - LABORATORY CBC & Chemistry Diagram: 08/20/18 21:30 08/20/18 21:30 Medical Decision Making - Critical Care Time Total Critical Care Time (minutes): 45 Critical Care Statement: The care of this patient involved high complexity decision making to prevent further life threatening deterioration of the patient 's condition and/or to evaluate & treat vital organ system(s) failure or risk of failure. - Medical Decision Making 08/20/18 22:01 The patient is an 88 year old female with a history of HTN, DM, Dementia, Asthma who presents for evaluation of respiratory distress. Differential includes but is not limited to: Asthma, Pneumonia, CHF, Infectious, Metabolic Derangement. On arrival to the ED, the patient was placed on BiPAP with improvement of her O2 Saturation to 98%. We obtained a cbc, cmp, troponin, bnp , chest plain film, ekg, ua, urine cultures, blood cultures, lactate, vbg to evaluate further. Chest plain film demonstrates right sided pneumonia with infiltrates in the right lower lobe. We will treat with duonebs, solumedrol, tylenol, vanc, and levaquin. The patient will require admission for further monitoring and management. We will continue to monitor and reassess while here in the ED. 08/20/18 22:50 CBC demonstrates a wbc to 21. CMP is unremarkable. Lactate is elevated to 2.8. Troponin and bnp are unremarkable. We discussed the case with Dr. Harris with the admitting team who accepted the patient for admission. *DC/Admit/Observation/Transfer Diagnosis at time of Disposition: Respiratory distress Pneumonia Qualifiers: Pneumonia type: due to unspecified organism Laterality: unspecified laterality Lung location: unspecified part of lung Qualified Code(s): J18.9 - Pneumonia, unspecified organism Sepsis Qualifiers: Sepsis type: sepsis due to unspecified organism Qualified Code(s): A41.9 - Sepsis, unspecified organism - Discharge Dispostion Condition at time of disposition: Stable Decision to Admit order: Yes - Referrals Referrals: Israel Harris MD [Primary Care Provider] - - Patient Instructions - Post Discharge Activity
[2018-08-20] MEDS ORDERED: ALBUTEROL SO4 2.5/IPRATROPIUM 0.5 INH SOL 3 ML VIAL.NEB. NEB ONE (21:43)
[2018-08-20 21:45] VITALS: BMI 25.4
[2018-08-20] MEDS ORDERED: methylPREDNISolone NA SUCC 125 MG/2 ML VIAL IVPUSH ONE (21:45)
[2018-08-20] MEDS ORDERED: VANCOMYCIN 1,000 MG in DEXTROSE 5%-WATER - 250 ML IVPB ONE (21:53)
[2018-08-20 21:55] LABS: VENOUS PC02 46.1 mmHg (41-51); VENOUS PH 7.4 (7.31-7.41); VENOUS PO2 64.6 mmHg (30-40)
[2018-08-20 21:56] LABS: BASO % 0.5 % (0-2.0); EOS % 0.1 % (0-4.5); HEMATOCRIT 33.8 % (32.4-45.2); HEMOGLOBIN 10.9 GM/dL (10.7-15.3); LYMPH % 4.8 % (8-40); MCH 29.2 pg (25.7-33.7); MCHC 32.4 g/dl (32.0-36.0); MEAN CELL VOLUME 90.1 fl (80-96); MEAN PLT VOLUME 9.3 fl (7.5-11.1); MONO % 5.4 % (3.8-10.2); NEUT % 89.2 % (42.8-82.8); PLATELET COUNT 217 K/MM3 (134-434); RBC 3.75 M/mm3 (3.60-5.2); RDW 15.6 % (11.6-15.6); WHITE BLOOD COUNT 21.8 K/mm3 (4.0-10.0)
[2018-08-20] MEDS ORDERED: methylPREDNISolone NA SUCC 125 MG/2 ML VIAL ONE (22:17)
[2018-08-20] MEDS ORDERED: VANCOMYCIN 1 GRAM (PRE-DOCKED) 1,000 MG/250 ML BAG IVPB ONE (22:17)
[2018-08-20 22:26] LABS: ALBUMIN 2.9 g/dl (3.4-5.0); ALK PHOS 77 U/L (45-117); ANION GAP 7 MMOL/L (8-16); BILIRUBIN,TOTAL 0.3 mg/dL (0.2-1); BLOOD UREA NITROGEN 16 mg/dL (7-18); CALCIUM 9.2 mg/dL (8.5-10.1); CHLORIDE 105 mmol/L (98-107); CO2 28 mmol/L (21-32); CREATININE 0.6 mg/dL (0.55-1.3); GLUCOSE,RANDOM 170 mg/dL (74-106); POTASSIUM 4.1 mmol/L (3.5-5.1); SGOT/AST 22 U/L (15-37); SGPT/ALT 18 U/L (13-61); SODIUM 139 mmol/L (136-145)
[2018-08-20 22:28] LABS: N-TERMINAL BNP 365.2 pg/ml (5-450)
[2018-08-20] MEDS ORDERED: SODIUM CHLORIDE 1,000 ML IV STA (22:33)
[2018-08-20 22:47] LABS: URINE APPEARANCE CLOUDY; URINE BILIRUBIN NEGATIVE (NEGATIVE); URINE CASTS 67 /lpf (0-8); URINE COLOR YELLOW; URINE GLUCOSE (UA) NEGATIVE (NEGATIVE); URINE KETONE NEGATIVE (NEGATIVE); URINE LEUK ESTERASE 1+ (NEGATIVE); URINE NITRITE NEGATIVE (NEGATIVE); URINE PROTEIN 2+ (NEGATIVE); URINE RBC 2 /hpf (0-4); URINE UROBILINOGEN 0.2 mg/dL (0.2-1.0); URINE WBC 16 /hpf (0-5)
[2018-08-20 22:49] LABS: INR 1.07 (0.83-1.09); PROTHROMBIN TIME (PATIENT) 12.6 SEC (9.7-13.0)
[2018-08-20] MEDS ORDERED: ACETAMINOPHEN 1000 MG/100 ML VIAL (NON FORMULARY) IVPB ONE (22:49)
[2018-08-20 22:51] LABS: ACTIVATED PTT 29.3 SECONDS (25.2-36.5)
[2018-08-20] MEDS ORDERED: ACETAMINOPHEN INJECTION 100 ML IVPB ONE (22:52)
[2018-08-20 23:11] LABS: URINE BACTERIA 580 /hpf (NEGATIVE)
[2018-08-20] MEDS ORDERED: methylPREDNISolone NA SUCC 40 MG/1 ML VIAL ONE (23:20)
[2018-08-20 23:21] LABS: ANISOCYTOSIS 1+; MACROCYTOSIS 1+; PLATELET ESTIMATE NORMAL
[2018-08-20] MEDS: DEXTROSE 5%-0.45% SALINE 1,000 ML IV SCH (23:24)
[2018-08-20] MEDS: methylPREDNISolone NA SUCC 40 MG/1 ML VIAL IVPUSH SCH (23:24)
[2018-08-21] MEDS ORDERED: SODIUM CHLORIDE 0.9% 500 ML INFUS.BAG IV ONE (01:44)
[2018-08-21] MEDS ORDERED: methylPREDNISolone NA SUCC 40 MG/1 ML VIAL ONE (01:49)
[2018-08-21] MEDS: methylPREDNISolone NA SUCC 40 MG/1 ML VIAL IVPUSH SCH ×3 (01:55→18:41)
[2018-08-21 06:30] LABS: HEMOGLOBIN 9.8 GM/dL (10.7-15.3); MCH 29.5 pg (25.7-33.7); MCHC 32.7 g/dl (32.0-36.0); MEAN CELL VOLUME 90.3 fl (80-96); MEAN PLT VOLUME 9.3 fl (7.5-11.1); PLATELET COUNT 197 K/MM3 (134-434); RBC 3.32 M/mm3 (3.60-5.2); RDW 15.2 % (11.6-15.6); WHITE BLOOD COUNT 15.5 K/mm3 (4.0-10.0)
[2018-08-21 07:18] LABS: ANION GAP 7 MMOL/L (8-16); BLOOD UREA NITROGEN 10 mg/dL (7-18); CALCIUM 8.3 mg/dL (8.5-10.1); CHLORIDE 107 mmol/L (98-107); CO2 25 mmol/L (21-32); CREATININE 0.5 mg/dL (0.55-1.3); GLUCOSE,RANDOM 243 mg/dL (74-106); POTASSIUM 3.8 mmol/L (3.5-5.1); SODIUM 139 mmol/L (136-145)
[2018-08-21] MEDS ORDERED: ALBUTEROL SO4 2.5/IPRATROPIUM 0.5 INH SOL 3 ML VIAL.NEB. NEB ONE (08:48)
[2018-08-21] MEDS: ALBUTEROL SO4 2.5/IPRATROPIUM 0.5 INH SOL 3 ML VIAL.NEB. NEB SCH ×4 (08:50→20:18)
--- NOTE | 2018-08-21 10:00 | EKG ---
Test Reason : Blood Pressure : / mmHG Vent. Rate : 107 BPM Atrial Rate : 107 BPM P-R Int : 146 ms QRS Dur : 074 ms QT Int : 338 ms P-R-T Axes : 036 054 042 degrees QTc Int : 451 ms SINUS TACHYCARDIA OTHERWISE NORMAL ECG WHEN COMPARED WITH ECG OF 10-JUL-2017 13:43, NO SIGNIFICANT CHANGE WAS FOUND Confirmed by KAREN CLIFFORD MD ([id number]) on 08/21/2018 9:59:59 AM Referred By: Confirmed By:KAREN CLIFFORD MD
--- NOTE | 2018-08-21 10:34 | PN ---
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 admitted with SOB found to have right sided pneumonia, hypoxia 85% last hospitalized one year ago for pneumonia received rocephin and developed rash discharged on levaquin she received vancomcycin and levaquin in ED respiratory distress with hypoxia pneumonia- CAP vs aspiration multiple antibiotic allergies (pen, ceftriaxone) severe dementia cultres sent send urinary antigens clindamycin/levaquin d/w PMD Problem List - Problems (1) Acute respiratory distress Code(s): J80 - ACUTE RESPIRATORY DISTRESS SYNDROME (2) Pneumonia Code(s): J18.9 - PNEUMONIA, UNSPECIFIED ORGANISM Qualifiers: Pneumonia type: due to unspecified organism Laterality: unspecified laterality Lung location: unspecified part of lung Qualified Code(s): J18.9 - Pneumonia, unspecified organism (3) Allergy to multiple antibiotics Code(s): Z88.1 - ALLERGY STATUS TO OTHER ANTIBIOTIC AGENTS STATUS (4) Dementia Code(s): F03.90 - UNSPECIFIED DEMENTIA WITHOUT BEHAVIORAL DISTURBANCE
--- NOTE | 2018-08-21 10:52 | HP ---
Admitting History and Physical - Primary Care Physician PCP: Israel Harris - Admission Chief Complaint: breathing difficulty History of Present Illness: 88 year old functional-quadroplegic homebound non verbal female, with a significant past medical history of advanced dementia, asthma, hypertension, mild diabetes mellitus, hyperlipidemia, prior pneumonias and UTIs, (burned out) rheumatoid arthritis, who was BIBA SOB & wheezing which began on day of admission and did not respond to home Neb Tx x 3. EMS was then called; her o2 sat was 85, and then was Rx'd duoneb with some improvement. She was placed on BIPAP on arrival to ER. Patient is unable to provide additional history second to dementia (pt. is nonverbal baseline status secondary to dementia since 2001 as per son). She resides at home with 24 x 7 attendant who assists her with all daily living functions. History Source: Medical Record Limitations to Obtaining History: Dementia - Past Medical History DAG SPRAYER: Yes: Dementia Cardiovascular: Yes: Other (hx of edema) Pulmonary: Yes: Asthma, Bronchitis, Pneumonia Gastrointestinal: Yes: Hiatal Hernia, Other (feeding problems) ...: No Heme/Onc: Yes: Anemia Psych: Yes: Anxiety, Depression Musculoskeletal: Yes: Osteoarthritis Rheumatology: Yes: Rheumatoid Arthritis (in remission [on no meds]) Endocrine: Yes: Diabetes Mellitus (borderline) - Smoking History Smoking history: Unknown if ever smoked Have you smoked in the past 12 months: No Aproximately how many cigarettes per day: 0 - Alcohol/Substance Use Hx Alcohol Use: No History of Substance Use: reports: None - Social History Usual Living Arrangement: Yes: Alone ADL: Support Services 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 History of Recent Travel: No Home Medications - Allergies Allergies/Adverse Reactions: Allergies Allergy/AdvReac Type Severity Reaction Status Date / Time ceftriaxone Allergy Intermediate Rash Verified 07/13/17 12:40 Penicillins Allergy Intermediate Rash Verified 07/13/17 12:38 - Home Medications Home Medications: Ambulatory Orders Montelukast Na [Singulair -] 10 mg PO HS tablet 09/21/15 Sennosides [Senna -] 1 tab PO DAILY PRN 08/18/16 predniSONE [Deltasone -] 5 mg PO DAILY 08/18/16 Calcium Carbonate/Vitamin D3 [Calcium 500 + Vit D Caplet] 1 each PO DAILY 03/25/ 18 Ipratropium [place] 0.5 mg NEB TID 07/10/17 Zolpidem Tartrate [Ambien] 5 mg PO HS 07/10/17 Albuterol Sulfate Inhaler - [Ventolin Hfa Inhaler -] 2 inh PO Q4H PRN 08/20/18 Multivit-Mins/Iron/Folic/Lycop [Centrum Men's Tablet] 1 each PO DAILY 08/20/18 Family Disease History - Family Disease History Family History: Unremarkable Review of Systems Findings/Remarks: unable to extract due to inability to speak 2nd adv dementia Physical Examination Vital Signs: Vital Signs Temperature 97.8 F 08/21/18 01:48 Pulse Rate 70 08/21/18 09:00 Respiratory Rate 16 08/21/18 09:00 Blood Pressure 158/87 08/21/18 09:00 O2 Sat by Pulse Oximetry (%) 100 08/21/18 09:00 Findings/Remarks: skin--no lesions appreciated head--NC eyes--midline; non injected oral--no gross mucosal lesions face--cushingoid lungs--diminshed BS heart--RR abd--mild distention, BS+; No guarding ext--rigid w/ contractures and degen changes. no ischemic changes neuro--awake; open eyes spontaneously; does not follow commands; does not answer or acknowledge presence of others; gen'l increased tone in all extrems; withdraws toes to tactile. CBCD WBC 15.5 K/mm3 (4.0-10.0) H 08/21/18 05:30 RBC 3.32 M/mm3 (3.60-5.2) L 08/21/18 05:30 Hgb 9.8 GM/dL (10.7-15.3) L 08/21/18 05:30 Hct 30.0 % (32.4-45.2) L 08/21/18 05:30 MCV 90.3 fl (80-96) 08/21/18 05:30 MCHC 32.7 g/dl (32.0-36.0) 08/21/18 05:30 RDW 15.2 % (11.6-15.6) 08/21/18 05:30 Plt Count 197 K/MM3 (134-434) 08/21/18 05:30 MPV 9.3 fl (7.5-11.1) 08/21/18 05:30 CMP Sodium 139 mmol/L (136-145) 08/21/18 05:30 Potassium 3.8 mmol/L (3.5-5.1) 08/21/18 05:30 Chloride 107 mmol/L (98-107) 08/21/18 05:30 Carbon Dioxide 25 mmol/L (21-32) 08/21/18 05:30 Anion Gap 7 MMOL/L (8-16) L 08/21/18 05:30 BUN 10 mg/dL (7-18) 08/21/18 05:30 Creatinine 0.5 mg/dL (0.55-1.3) L 08/21/18 05:30 Creat Clearance w eGFR 116.71 (>60) 08/21/18 05:30 Random Glucose 243 mg/dL (74-106) H 08/21/18 05:30 Calcium 8.3 mg/dL (8.5-10.1) L 08/21/18 05:30 Total Bilirubin 0.3 mg/dL (0.2-1) 08/20/18 21:30 AST 22 U/L (15-37) 08/20/18 21:30 ALT 18 U/L (13-61) 08/20/18 21:30 Alkaline Phosphatase 77 U/L (45-117) 08/20/18 21:30 Total Protein 7.0 g/dl (6.4-8.2) 08/20/18 21:30 Albumin 2.9 g/dl (3.4-5.0) L 08/20/18 21:30 CARDIAC ENZYMES Creatine Kinase 49 U/L (26-192) 08/21/18 01:07 Troponin I < 0.02 ng/ml (0.00-0.05) 08/21/18 01:07 Urine Test Results Urine Color Yellow 08/20/18 22:36 Urine Appearance Cloudy 08/20/18 22:36 Urine pH 5.0 (5.0-8.0) 08/20/18 22:36 Ur Specific [place] 1.031 (1.010-1.035) 08/20/18 22:36 Urine Protein 2+ (NEGATIVE) H 08/20/18 22:36 Urine Glucose (UA) Negative (NEGATIVE) 08/20/18 22:36 Urine Ketones Negative (NEGATIVE) 08/20/18 22:36 Urine Blood 2+ (NEGATIVE) H 08/20/18 22:36 Urine Nitrite Negative (NEGATIVE) 08/20/18 22:36 Urine Bilirubin Negative (NEGATIVE) 08/20/18 22:36 Ur Leukocyte Esterase 1+ (NEGATIVE) H 08/20/18 22:36 Labs: CBC, BMP 08/21/18 05:30 08/21/18 05:30 Imaging - Results Chest X-ray: Report Reviewed EKG: Report Reviewed Problem List - Problems (1) Pneumonia Assessment/Plan: Rt lung haziness, to suggest aspiration. PLAN: NPO; Neb Tx, IV steroids/Abs; [employer] ASSISTANT eval when stable Code(s): J18.9 - PNEUMONIA, UNSPECIFIED ORGANISM Qualifiers: Pneumonia type: aspiration pneumonia Laterality: right Lung location: unspecified part of lung (2) Asthma Assessment/Plan: Hx of asthma controlled with home Nebs and Montelukast; though doubt this was due to asthmatic excarbation itself Code(s): J45.909 - UNSPECIFIED ASTHMA, UNCOMPLICATED Qualifiers: Asthma severity: unspecified severity Asthma complication type: uncomplicated (3) Respiratory distress Assessment/Plan: 2nd PNA: causing desat o2; PLAN: oxygen supp; Neb Tx Code(s): R06.00 - DYSPNEA, UNSPECIFIED (4) Hypoxia Assessment/Plan: see above Code(s): R09.02 - HYPOXEMIA (5) UTI (urinary tract infection) Assessment/Plan: UA suggests UTI; await C&S; received levaquin in ER Code(s): N39.0 - URINARY TRACT INFECTION, SITE NOT SPECIFIED Qualifiers: Hematuria presence: with hematuria (6) Dementia Assessment/Plan: very advanced; funct quad state and totally ADL dep; though seems to be able to eat and take meds; unable to make needs known Code(s): F03.90 - UNSPECIFIED DEMENTIA WITHOUT BEHAVIORAL DISTURBANCE Qualifiers: Dementia type: unspecified type (7) Leukocytosis Assessment/Plan: 2nd state of infection; PALN: monitor counts Code(s): D72.829 - ELEVATED WHITE BLOOD CELL COUNT, UNSPECIFIED Qualifiers: Leukocytosis type: unspecified Qualified Code(s): D72.829 - Elevated white blood cell count, unspecified (8) Lactic acidosis Assessment/Plan: not new; will follow levels Code(s): E87.2 - ACIDOSIS (9) Mobility impaired Assessment/Plan: prone to decubiti; will need air mattress Code(s): Z74.09 - OTHER REDUCED MOBILITY (10) Needs assistance while at home Assessment/Plan: has home stager Code(s): Z74.2 - NEED FOR ASSIST AT HOME & NO HOUSE MEMB ABLE TO RENDER CARE (11) Glucose intolerance Assessment/Plan: has been known to have borderline DM; but has not required any agents; BS exacerb by use of steroids Code(s): E74.39 - OTHER DISORDERS OF INTESTINAL CARBOHYDRATE ABSORPTION (12) Functional quadriplegia Assessment/Plan: 2nd advanced bilat cerebral dysf affecting both white & diaz matter Code(s): R53.2 - FUNCTIONAL QUADRIPLEGIA Assessment/Plan 88 YO incapacitated home bound F who is totally ADL dep displays multiple infections all of which life threatening, and will need multiple med interventions. ~~~~~~~~~~~~~~~~~~~~~~~~~ Dr Harris
[2018-08-21] MEDS: HEPARIN NA (PORCINE) 5,000 UNITS/ML 1ML VIAL SQ SCH ×2 (11:59→22:01)
[2018-08-21] MEDS: INSULIN SLIDING SCALE (NOVOLOG) 1 VIAL SQ SCH ×3 (12:00→22:44)
[2018-08-21] MEDS: DEXTROSE 5%-0.45% SALINE 1,000 ML IV SCH ×2 (12:59→22:43)
--- NOTE | 2018-08-21 13:25 | CONS ---
DATE OF CONSULTATION:08/21/2018 DATE OF DICTATION: 08/21/2018 REQUESTING PHYSICIAN: Israel Harris MD HISTORY OF PRESENT ILLNESS: This is an 88-year-old woman who was last admitted in the hospital in the spring. She was in the hospital with pneumonia from July 10 to July 20. She now returns with shortness of breath. She was given nebulizers at home with no improvement. Hypoxia with an O2 saturation of 85% when EMS arrived. She was evaluated in the emergency room where she was found to have a fever of 100.1 as well she was hypoxic and placed on BiPAP. Chest x-ray was done. She was found to have a right-sided infiltrate. She is allergic to PENICILLIN and CEFTRIAXONE and was given vancomycin and Levaquin. At baseline she has severe dementia with functional quadriplegia and is nonverbal. PAST MEDICAL HISTORY: Is notable for a history of asthma, bronchitis, hiatal hernia, anemia, anxiety, depression, osteoporosis, dementia, rheumatoid arthritis. She has a history of prior pneumonia and UTI. She is nonverbal at baseline secondary to dementia from 2001. She resides at home with 24/7 attendant. She also has functional quadriplegia. SOCIAL HISTORY: She resides at home with an attendant. There is no history of travel. There is no substance use or cigarette use. ALLERGIES: Allergy to penicillin and cefriaxone (rash) MEDICATIONS AT HOME: Include Singulair nebulizer treatments, multivitamins, and Senna. REVIEW OF SYSTEMS: Is not available. PHYSICAL EXAMINATION: General: She opens her eyes. She is wearing BiPAP. She is stiff all over. Lungs: Have diminished breath sounds at the bases. Heart: Regular rate and rhythm. Abdomen: Firm, nontender. She has a Dominguez draining clear urine. Extremities: Without edema. Skin: She has no skin breakdown. LABORATORY DATA: White count on admission was 21.8, repeat this morning was 15.5, hemoglobin 9.8, platelets are 197. INR is 1. BUN and creatinine are 10 and 0.5. Her lactic acid is 3.4. Her LFTs on admission were normal. Her albumin is 2.9 and her urinalysis is 1+ leukocytes with 16 white cells. Urine and blood cultures are pending. SUMMARY: In summary this is an elderly woman with severe dementia admitted with acute respiratory failure with documented hypoxia. She is now on BiPAP with the right-sided pneumonia. Concerns would be community-acquired versus aspiration in this severely demented lady who has multiple antibiotic allergies including PENICILLIN and CEFTRIAXONE. Cultures have been sent with said urinary antigens. We will treat her with clindamycin and Levaquin. The case was discussed with Dr. Harris. CARLEY WYLIE M.D. [id number] [facility]
[2018-08-21] MEDS: CLINDAMYCIN 600MG PREMIX IVPB 600 MG/50 ML BAG IVPB SCH ×2 (14:11→18:41)
[2018-08-22] MEDS: methylPREDNISolone NA SUCC 40 MG/1 ML VIAL IVPUSH SCH ×3 (02:06→17:13)
[2018-08-22] MEDS: CLINDAMYCIN 600MG PREMIX IVPB 600 MG/50 ML BAG IVPB SCH ×3 (02:07→17:13)
[2018-08-22] MEDS: INSULIN SLIDING SCALE (NOVOLOG) 1 VIAL SQ SCH ×4 (05:46→23:15)
[2018-08-22 07:33] LABS: HEMATOCRIT 29.6 % (32.4-45.2); HEMOGLOBIN 9.9 GM/dL (10.7-15.3); MCH 29.9 pg (25.7-33.7); MCHC 33.6 g/dl (32.0-36.0); MEAN CELL VOLUME 89.1 fl (80-96); MEAN PLT VOLUME 9.6 fl (7.5-11.1); PLATELET COUNT 217 K/MM3 (134-434); RBC 3.32 M/mm3 (3.60-5.2); RDW 15.2 % (11.6-15.6); WHITE BLOOD COUNT 9.7 K/mm3 (4.0-10.0)
[2018-08-22] MEDS: ALBUTEROL SO4 2.5/IPRATROPIUM 0.5 INH SOL 3 ML VIAL.NEB. NEB SCH ×4 (07:55→20:27)
[2018-08-22 08:04] LABS: ANION GAP 8 MMOL/L (8-16); BLOOD UREA NITROGEN 10 mg/dL (7-18); CALCIUM 8.5 mg/dL (8.5-10.1); CHLORIDE 106 mmol/L (98-107); CO2 28 mmol/L (21-32); CREATININE 0.5 mg/dL (0.55-1.3); GLUCOSE,RANDOM 183 mg/dL (74-106); MAGNESIUM 2.1 mg/dL (1.8-2.4); POTASSIUM 3.4 mmol/L (3.5-5.1); SODIUM 142 mmol/L (136-145)
[2018-08-22] MEDS: HEPARIN NA (PORCINE) 5,000 UNITS/ML 1ML VIAL SQ SCH ×2 (09:01→21:03)
[2018-08-22] MEDS ORDERED: KCL 10 MEQ IVPB 10 MEQ/100 ML INFUS.BAG IVPB SCH (09:30)
--- NOTE | 2018-08-22 13:28 | PN ---
Progress Note (short form) - Note Progress Note: Current Medications Albuterol/Ipratropium (Duoneb -) 1 amp NEB RQID DIAMOND Last Admin: 08/22/18 11:25 Dose: 1 amp Heparin Sodium (Porcine) (Heparin -) 5,000 unit SQ BID DIAMOND Last Admin: 08/22/18 09:01 Dose: 5,000 unit Clindamycin Phosphate (Cleocin 600 Mg Premix Ivpb -) 600 mg in 50 mls @ 100 mls /hr IVPB Q8H-IV DIAMOND; Protocol Last Admin: 08/22/18 09:00 Dose: 100 mls/hr Levofloxacin (Levaquin 500 Mg Premixed Ivpb -) 500 mg in 100 mls @ 100 mls/hr IVPB Q24H DIAMOND; Protocol Last Admin: 08/21/18 22:02 Dose: 100 mls/hr Amino Acids (Clinimix -) 1,000 mls @ 50 mls/hr IV Q12H DIAMOND Insulin Aspart (Novolog Vial Sliding Scale -) 1 vial SQ Q6H DIAMOND; Protocol Last Admin: 08/22/18 11:10 Dose: Not Given Methylprednisolone Sodium Succinate (Solu-Medrol -) 80 mg IVPUSH Q8H-IV DIAMOND Last Admin: 08/22/18 09:01 Dose: 80 mg Laboratory Results - last 24 hr 08/21/18 08/21/18 08/22/18 17:29 21:51 05:26 WBC RBC Hgb Hct MCV MCH MCHC RDW Plt Count MPV Sodium Potassium Chloride Carbon Dioxide Anion Gap BUN Creatinine Creat Clearance w eGFR POC Glucometer 172 198 166 Random Glucose Lactic Acid Calcium Magnesium 08/22/18 08/22/18 08/22/18 05:36 06:30 06:30 WBC 9.7 RBC 3.32 L Hgb 9.9 L Hct 29.6 L MCV 89.1 MCH 29.9 MCHC 33.6 RDW 15.2 Plt Count 217 MPV 9.6 Sodium 142 Potassium 3.4 L Chloride 106 Carbon Dioxide 28 Anion Gap 8 BUN 10 Creatinine 0.5 L Creat Clearance w eGFR 116.71 POC Glucometer 159 Random Glucose 183 H Lactic Acid Calcium 8.5 Magnesium 2.1 08/22/18 08/22/18 06:30 11:09 WBC RBC Hgb Hct MCV MCH MCHC RDW Plt Count MPV Sodium Potassium Chloride Carbon Dioxide Anion Gap BUN Creatinine Creat Clearance w eGFR POC Glucometer 221 Random Glucose Lactic Acid 1.9 Calcium Magnesium Vital Signs Temperature 97.7 F 08/22/18 10:00 Pulse Rate 80 08/22/18 10:00 Respiratory Rate 20 08/22/18 10:00 Blood Pressure 149/83 08/22/18 10:00 O2 Sat by Pulse Oximetry (%) 99 08/22/18 10:14 CC: not able to speak ```````````````````` skin--no acute lesions eyes--eyes focused; midline; able to follow neck --rigid heart--RR lungs--clear anteriorly abd--mild distention ext--contractures on all 4 extrem & rigid neuro--cognition severely impaired; does not speak/converse, unable to follow commands ``````````````````````````````` Summ > PNA--aspiration type; (see ID note); cont current TX w/ Abs; Neb & steroids; keep NPO for now > Resp failure--2nd aspiration PNA: will try to titrate off Bipap; hopefully get speech/swallow eval > Asthma--stable; on IV steroids & Nebs > hyperglycemia--not new has gluc intol; sugars made higher by steroids > Low potassium--replenish as needed > anemia--not new; h/h stable so far > 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 > Immobility status--prone to pressure sores; will cont air-mat ~~~~~~~~~~~~~~ Dr Harris Problem List - Problems (1) Pneumonia Code(s): J18.9 - PNEUMONIA, UNSPECIFIED ORGANISM Qualifiers: Pneumonia type: aspiration pneumonia Laterality: right Lung location: unspecified part of lung (2) Asthma Code(s): J45.909 - UNSPECIFIED ASTHMA, UNCOMPLICATED Qualifiers: Asthma severity: unspecified severity Asthma complication type: uncomplicated (3) Respiratory distress Code(s): R06.00 - DYSPNEA, UNSPECIFIED (4) Hypoxia Code(s): R09.02 - HYPOXEMIA (5) UTI (urinary tract infection) Code(s): N39.0 - URINARY TRACT INFECTION, SITE NOT SPECIFIED Qualifiers: Hematuria presence: with hematuria (6) Dementia Code(s): F03.90 - UNSPECIFIED DEMENTIA WITHOUT BEHAVIORAL DISTURBANCE Qualifiers: Dementia type: unspecified type (7) Leukocytosis Code(s): D72.829 - ELEVATED WHITE BLOOD CELL COUNT, UNSPECIFIED Qualifiers: Leukocytosis type: unspecified Qualified Code(s): D72.829 - Elevated white blood cell count, unspecified (8) Lactic acidosis Code(s): E87.2 - ACIDOSIS (9) Mobility impaired Code(s): Z74.09 - OTHER REDUCED MOBILITY (10) Needs assistance while at home Code(s): Z74.2 - NEED FOR ASSIST AT HOME & NO HOUSE MEMB ABLE TO RENDER CARE (11) Glucose intolerance Code(s): E74.39 - OTHER DISORDERS OF INTESTINAL CARBOHYDRATE ABSORPTION (12) Functional quadriplegia Code(s): R53.2 - FUNCTIONAL QUADRIPLEGIA
[2018-08-22] MEDS: AMINO ACIDS 4.25%/D5W 1,000 ML IV SCH (15:22)
--- NOTE | 2018-08-22 16:57 | PN ---
Progress Note (short form) - Note Progress Note: awake, trying to talk to us! NAD ventimask Vital Signs Period Temp Pulse Resp BP Sys/Ford Pulse Ox Last 24 Hr 97.3 F-98.9 F 80-93 20-21 120-150/75-89 97-99 cor-rrr lungs decreased bs at bases abd firm NT ext no edema CBC, BMP 08/22/18 06:30 08/22/18 06:30 Microbiology 08/22/18 09:55 Urine For Antigen Detection Legionella Antigen - Final 08/22/18 09:55 Urine For Antigen Detection Streptococcus pneumoniae Antigen (M - Final 08/20/18 21:35 Urine - Urine Dominguez Urine Culture - Final Contaminated: Please Repeat 08/20/18 21:30 Blood - Peripheral Venous Blood Culture - Preliminary NO GROWTH OBTAINED AFTER 24 HOURS, INCUBATION TO CONTINUE FOR 4 DAYS. 08/20/18 21:30 Blood - Peripheral Venous Blood Culture - Preliminary NO GROWTH OBTAINED AFTER 24 HOURS, INCUBATION TO CONTINUE FOR 4 DAYS. a/p clinically improved now alert multiple antibiotic allergies (pen, ceftriaxone) severe dementia clindamycin/levaquin day #2 Problem List - Problems (1) Acute respiratory distress Code(s): J80 - ACUTE RESPIRATORY DISTRESS SYNDROME (2) Pneumonia Code(s): J18.9 - PNEUMONIA, UNSPECIFIED ORGANISM Qualifiers: Pneumonia type: aspiration pneumonia Laterality: right Lung location: unspecified part of lung (3) Allergy to multiple antibiotics Code(s): Z88.1 - ALLERGY STATUS TO OTHER ANTIBIOTIC AGENTS STATUS (4) Dementia Code(s): F03.90 - UNSPECIFIED DEMENTIA WITHOUT BEHAVIORAL DISTURBANCE Qualifiers: Dementia type: unspecified type
[2018-08-23] MEDS: CLINDAMYCIN 600MG PREMIX IVPB 600 MG/50 ML BAG IVPB SCH ×3 (02:32→17:14)
[2018-08-23] MEDS: methylPREDNISolone NA SUCC 40 MG/1 ML VIAL IVPUSH SCH ×3 (02:32→17:15)
[2018-08-23] MEDS: INSULIN SLIDING SCALE (NOVOLOG) 1 VIAL SQ SCH ×4 (06:07→22:46)
[2018-08-23 07:27] LABS: HEMATOCRIT 30.4 % (32.4-45.2); HEMOGLOBIN 10.2 GM/dL (10.7-15.3); MCH 29.7 pg (25.7-33.7); MCHC 33.7 g/dl (32.0-36.0); MEAN CELL VOLUME 88.2 fl (80-96); MEAN PLT VOLUME 9.1 fl (7.5-11.1); PLATELET COUNT 225 K/MM3 (134-434); RBC 3.44 M/mm3 (3.60-5.2); WHITE BLOOD COUNT 8.2 K/mm3 (4.0-10.0)
[2018-08-23 07:42] LABS: CALCIUM 8.7 mg/dL (8.5-10.1); POTASSIUM 3.1 mmol/L (3.5-5.1)
[2018-08-23] MEDS: ALBUTEROL SO4 2.5/IPRATROPIUM 0.5 INH SOL 3 ML VIAL.NEB. NEB SCH ×4 (07:49→20:35)
[2018-08-23 09:54] LABS: CREATININE 0.5 mg/dL (0.55-1.3)
[2018-08-23] MEDS: HEPARIN NA (PORCINE) 5,000 UNITS/ML 1ML VIAL SQ SCH ×2 (11:18→22:43)
[2018-08-23] MEDS: AMINO ACIDS 4.25%/D5W 1,000 ML IV SCH (12:47)
--- NOTE | 2018-08-23 19:41 | PN ---
Progress Note (short form) - Note Progress Note: Current Medications Albuterol/Ipratropium (Duoneb -) 1 amp NEB RQID DIAMOND Last Admin: 08/23/18 15:41 Dose: 1 amp Heparin Sodium (Porcine) (Heparin -) 5,000 unit SQ BID DIAMOND Last Admin: 08/23/18 11:18 Dose: 5,000 unit Clindamycin Phosphate (Cleocin 600 Mg Premix Ivpb -) 600 mg in 50 mls @ 100 mls /hr IVPB Q8H-IV DIAMOND; Protocol Last Admin: 08/23/18 17:14 Dose: 100 mls/hr Levofloxacin (Levaquin 500 Mg Premixed Ivpb -) 500 mg in 100 mls @ 100 mls/hr IVPB Q24H DIAMOND; Protocol Last Admin: 08/22/18 21:03 Dose: 100 mls/hr Amino Acids (Clinimix -) 1,000 mls @ 50 mls/hr IV Q20H DIAMOND Last Admin: 08/23/18 12:47 Dose: 50 mls/hr Potassium Chloride (Potassium Chloride 10 Meq Premix Ivpb -) 10 meq in 100 mls @ 100 mls/hr IVPB Q60M DIAMOND Stop: 08/23/18 21:29 Insulin Aspart (Novolog Vial Sliding Scale -) 1 vial SQ Q6H DIAMOND; Protocol Last Admin: 08/23/18 17:15 Dose: Not Given Methylprednisolone Sodium Succinate (Solu-Medrol -) 40 mg IVPUSH Q8H-IV DIAMOND Laboratory Results - last 24 hr 08/22/18 08/23/18 08/23/18 23:12 05:51 06:05 WBC 8.2 RBC 3.44 L Hgb 10.2 L Hct 30.4 L MCV 88.2 MCH 29.7 MCHC 33.7 RDW 15.0 Plt Count 225 MPV 9.1 Sodium Potassium Chloride Carbon Dioxide Anion Gap BUN Creatinine Est GFR (CKD-EPI)AfAm Est GFR (CKD-EPI)NonAf POC Glucometer 249 162 Random Glucose Calcium 08/23/18 08/23/18 08/23/18 06:05 11:29 17:12 WBC RBC Hgb Hct MCV MCH MCHC RDW Plt Count MPV Sodium 142 Potassium 3.1 L Chloride 106 Carbon Dioxide 30 Anion Gap 7 L BUN 18 Creatinine 0.5 L Est GFR (CKD-EPI)AfAm 100.86 Est GFR (CKD-EPI)NonAf 87.02 POC Glucometer 181 209 Random Glucose 170 H Calcium 8.7 Vital Signs Temperature 98.2 F 08/23/18 18:38 Pulse Rate 78 08/23/18 18:38 Respiratory Rate 20 08/23/18 18:38 Blood Pressure 140/63 08/23/18 18:38 O2 Sat by Pulse Oximetry (%) 98 08/23/18 15:41 CC: not able to speak ```````````````````` skin--no acute lesions (IV a bit red on the LLE--removed and changed) eyes--kept closed today neck --rigid heart--RR lungs--clear anteriorly abd--mild distention ext--contractures on all 4 extrem & rigid neuro--cognition severely impaired; global rigidity; does not speak/converse, unable to follow commands ``````````````````````````````` Summ > PNA--aspiration type; cont current [place] w/ dual Abs; Neb & steroids; keep NPO for now > Resp failure--2nd aspiration PNA: will try to keep on Vmask, as she is saturating well now; to get speech/swallow eval > Asthma--stable; on IV steroids & Nebs > hyperglycemia--not new has gluc intol; sugars made higher by steroids > Low potassium--replenish as needed > anemia--not new; h/h stable so far > 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 > Immobility status--prone to pressure sores; will cont air-mat ~~~~~~~~~~~~~~ Dr Harris Problem List - Problems (1) Pneumonia Code(s): J18.9 - PNEUMONIA, UNSPECIFIED ORGANISM Qualifiers: Pneumonia type: aspiration pneumonia Laterality: right Lung location: unspecified part of lung (2) Asthma Code(s): J45.909 - UNSPECIFIED ASTHMA, UNCOMPLICATED Qualifiers: Asthma severity: unspecified severity Asthma complication type: uncomplicated (3) Respiratory distress Code(s): R06.00 - DYSPNEA, UNSPECIFIED (4) Hypoxia Code(s): R09.02 - HYPOXEMIA (5) UTI (urinary tract infection) Code(s): N39.0 - URINARY TRACT INFECTION, SITE NOT SPECIFIED Qualifiers: Hematuria presence: with hematuria (6) Dementia Code(s): F03.90 - UNSPECIFIED DEMENTIA WITHOUT BEHAVIORAL DISTURBANCE Qualifiers: Dementia type: unspecified type (7) Leukocytosis Code(s): D72.829 - ELEVATED WHITE BLOOD CELL COUNT, UNSPECIFIED Qualifiers: Leukocytosis type: unspecified Qualified Code(s): D72.829 - Elevated white blood cell count, unspecified (8) Lactic acidosis Code(s): E87.2 - ACIDOSIS (9) Mobility impaired Code(s): Z74.09 - OTHER REDUCED MOBILITY (10) Needs assistance while at home Code(s): Z74.2 - NEED FOR ASSIST AT HOME & NO HOUSE MEMB ABLE TO RENDER CARE (11) Glucose intolerance Code(s): E74.39 - OTHER DISORDERS OF INTESTINAL CARBOHYDRATE ABSORPTION (12) Functional quadriplegia Code(s): R53.2 - FUNCTIONAL QUADRIPLEGIA
[2018-08-23] MEDS ORDERED: PT OWN MED DRAWER 7, Y5N ONE (19:53)
[2018-08-23] MEDS: KCL 10 MEQ IVPB 10 MEQ/100 ML INFUS.BAG IVPB SCH ×2 (22:36→23:46)
[2018-08-24] MEDS: CLINDAMYCIN 600MG PREMIX IVPB 600 MG/50 ML BAG IVPB SCH ×3 (02:20→17:56)
[2018-08-24] MEDS: methylPREDNISolone NA SUCC 40 MG/1 ML VIAL IVPUSH SCH ×3 (02:20→17:59)
[2018-08-24] MEDS: INSULIN SLIDING SCALE (NOVOLOG) 1 VIAL SQ SCH ×4 (05:36→22:39)
[2018-08-24] MEDS: AMINO ACIDS 4.25%/D5W 1,000 ML IV SCH (06:19)
[2018-08-24 07:06] LABS: HEMATOCRIT 31.5 % (32.4-45.2); HEMOGLOBIN 10.5 GM/dL (10.7-15.3); MCH 29.7 pg (25.7-33.7); MCHC 33.5 g/dl (32.0-36.0); MEAN CELL VOLUME 88.8 fl (80-96); MEAN PLT VOLUME 9.2 fl (7.5-11.1); PLATELET COUNT 196 K/MM3 (134-434); RBC 3.55 M/mm3 (3.60-5.2); RDW 15.1 % (11.6-15.6); WHITE BLOOD COUNT 5.7 K/mm3 (4.0-10.0)
[2018-08-24 07:38] LABS: CALCIUM 8.7 mg/dL (8.5-10.1); CREATININE 0.5 mg/dL (0.55-1.3); MAGNESIUM 2.4 mg/dL (1.8-2.4); POTASSIUM 3.2 mmol/L (3.5-5.1)
[2018-08-24] MEDS: ALBUTEROL SO4 2.5/IPRATROPIUM 0.5 INH SOL 3 ML VIAL.NEB. NEB SCH ×4 (08:30→20:17)
--- NOTE | 2018-08-24 09:56 | CONSULT ---
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 Placed on ground and nectar thick liquid. Last seen by me 2015.Readily accepts and tolerated puree and thin liquid from a straw. No overt signs of aspiration. Nonverbal. No attempt at communication. 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 Cardiovascular: Yes: Other (hx of edema) Pulmonary: Yes: Asthma, Bronchitis, Pneumonia Gastrointestinal: Yes: Hiatal Hernia, Other (feeding problems) ...: No Heme/Onc: Yes: Anemia Psych: Yes: Anxiety, Depression Musculoskeletal: Yes: Osteoarthritis Rheumatology: Yes: Rheumatoid Arthritis (in remission [on no meds]) Endocrine: Yes: Diabetes Mellitus (borderline) - Smoking History Smoking history: Unknown if ever smoked Have you smoked in the past 12 months: No Aproximately how many cigarettes per day: 0 - Alcohol/Substance Use Hx Alcohol Use: No History of Substance Use: reports: None - Social History ADL: Support Services 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 History of Recent Travel: No History - Admission Reason For Visit: RESPIRATORY DISTRESS/SEPSIS/PNEUMONIA - Diagnostics X-ray: Report Reviewed - General Mental Status: Awake and Alert Attention: Intact Ability to Follow Directions: Poor Head/Neck Control: Needs Assist Speech Evaluation - Communication Primary Language: UNKNOWN Communication: Yes: Non-Communicable Oral Expression Ability: Yes: Non-Verbal (rare unintelligible jargon) - Speech Production Able to Make Needs Known: Yes: Severely Impaired Intelligibility: Yes: Severely Impaired - Speech Characteristics Voice Loudness: Normal Voice Pitch: Yes: Normal Voice Phonatory-based Quality: Yes: Normal Speech Pattern: Impaired Nasal Resonance: Normal Articulation: Yes: Precise - Language/Auditory Comprehension Observation: Able to respond to yes/no queries: No, Comprehends Conversational Speech: No - Swallow Evaluation/Bedside Assessment Current Nutritional Intake: NPO Oral Secretions: Yes: WFL Facial Symmetry at Rest: Symmetrical Laryngeal Movement: Able to Palpate, Labored,delay initiation Rate of Intake: Slow/Holding Bolus Size: Small Labial Seal: WFL Oral Prep Time: Increased A-P Transit: Impaired Timing of Swallow: Delayed Coughing/Throat Clear: No (with pureed trial) Recommendations - Speech Evaluation, Impression/Plan Impression: Excellent eye contact. Follows no commands/ no y/n response. 1 instance of unintelligible jargon. Recognizes spoon and opens her mouth to eat.Accepts small amounts in front of her mouth, with oral defensiveness. Delayed swallow but fairly brisk, once triggered. At risk of aspiration due to delayed swallow onset, but I suspect she can tolerate a modified diet using compensatory swallowing strategies. No responsive cough or vocal wetness but noted expiratory wheeze. - Dysphagia Impressions/Plan Swallowing Skills: Impaired Dysphagia Impressions: Mild Impairment, Moderate Impairment, Risk of Aspiration *Silent aspiration: cannot be R/O at bedside Dysphagia Treatment Plan: Small Bites, Chin Tuck/Down, Clear Pocket Food, Trial Feedings, Facilitative Feeding, Safe Rate, 1/2 tsp. at a time, Elevate HOB during feed, Other (observe for swallow before next trial given.) - Recommendations Diet Consistency: Dysphagia Pureed Medication Administration: Crushed with applesauce Liquids: [place] Thick (on tsp only) Supplement: Magic Cup, Ensure Pudding
[2018-08-24] MEDS: HEPARIN NA (PORCINE) 5,000 UNITS/ML 1ML VIAL SQ SCH ×2 (10:24→22:39)
[2018-08-24] MEDS: KCL 10 MEQ IVPB 10 MEQ/100 ML INFUS.BAG IVPB SCH ×2 (14:29→16:07)
--- NOTE | 2018-08-24 17:06 | PN ---
Progress Note (short form) - Note Progress Note: Current Medications Albuterol/Ipratropium (Duoneb -) 1 amp NEB RQID DIAMOND Last Admin: 08/24/18 15:57 Dose: 1 amp Heparin Sodium (Porcine) (Heparin -) 5,000 unit SQ BID DIAMOND Last Admin: 08/24/18 10:24 Dose: 5,000 unit Clindamycin Phosphate (Cleocin 600 Mg Premix Ivpb -) 600 mg in 50 mls @ 100 mls /hr IVPB Q8H-IV DIAMOND; Protocol Last Admin: 08/24/18 10:24 Dose: 100 mls/hr Levofloxacin (Levaquin 500 Mg Premixed Ivpb -) 500 mg in 100 mls @ 100 mls/hr IVPB Q24H DIAMOND; Protocol Last Admin: 08/23/18 21:04 Dose: 100 mls/hr Amino Acids (Clinimix -) 1,000 mls @ 50 mls/hr IV Q20H DIAMOND Last Admin: 08/24/18 06:19 Dose: 50 mls/hr Insulin Aspart (Novolog Vial Sliding Scale -) 1 vial SQ Q6H DIAMOND; Protocol Last Admin: 08/24/18 16:24 Dose: Not Given Methylprednisolone Sodium Succinate (Solu-Medrol -) 40 mg IVPUSH Q8H-IV DIAMOND Last Admin: 08/24/18 10:24 Dose: 40 mg Laboratory Results - last 24 hr 08/23/18 08/23/18 08/24/18 17:12 22:44 05:34 WBC RBC Hgb Hct MCV MCH MCHC RDW Plt Count MPV Sodium Potassium Chloride Carbon Dioxide Anion Gap BUN Creatinine Est GFR (CKD-EPI)AfAm Est GFR (CKD-EPI)NonAf POC Glucometer 209 223 207 Random Glucose Calcium Magnesium 08/24/18 08/24/18 08/24/18 06:00 06:00 13:55 WBC 5.7 RBC 3.55 L Hgb 10.5 L Hct 31.5 L MCV 88.8 MCH 29.7 MCHC 33.5 RDW 15.1 Plt Count 196 MPV 9.2 Sodium 141 Potassium 3.2 L Chloride 103 Carbon Dioxide 30 Anion Gap 7 L BUN 21 H Creatinine 0.5 L Est GFR (CKD-EPI)AfAm 100.86 Est GFR (CKD-EPI)NonAf 87.02 POC Glucometer 191 Random Glucose 189 H Calcium 8.7 Magnesium 2.4 08/24/18 16:23 WBC RBC Hgb Hct MCV MCH MCHC RDW Plt Count MPV Sodium Potassium Chloride Carbon Dioxide Anion Gap BUN Creatinine Est GFR (CKD-EPI)AfAm Est GFR (CKD-EPI)NonAf POC Glucometer 181 Random Glucose Calcium Magnesium Vital Signs Temperature 98.5 F 08/24/18 13:55 Pulse Rate 80 08/24/18 13:55 Respiratory Rate 20 08/24/18 13:55 Blood Pressure 135/77 08/24/18 13:55 O2 Sat by Pulse Oximetry (%) 98 08/24/18 15:57 CC: not able to speak ```````````````````` skin--no acute lesions (IV a bit red on the LLE--removed and changed) eyes--opens eyes neck --rigid heart--RR lungs--clear anteriorly abd--mild distention ext--contractures on all 4 extrem & rigid neuro--rare vocalizations; unable to verbalize; cognition severely impaired; global rigidity; does not speak/converse, unable to follow commands ``````````````````````````````` Summ > PNA--aspiration type; CXR showing slight improvement; MARINE SURVEYOR note read and will start PO feeds as advised PLAN:cont current [place] w/ dual Abs; Neb & steroids; PO feeds to start in AM > Resp failure--2nd aspiration PNA: CXR improved; will try to lower oxygen to 30 % on Vmask, as she is saturating well now > Asthma--stable; on IV steroids & Nebs; taper steroids slowly given the "chemical" (aspiration) PNA > hyperglycemia--not new has gluc intol; sugars made higher by steroids > Low potassium--replenish as needed > anemia--not new; h/h stable so far > 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 > Immobility status--prone to pressure sores; will cont air-mat ~~~~~~~~~~~~~~ Dr Harris Problem List - Problems (1) Pneumonia Code(s): J18.9 - PNEUMONIA, UNSPECIFIED ORGANISM Qualifiers: Pneumonia type: aspiration pneumonia Laterality: right Lung location: unspecified part of lung (2) Asthma Code(s): J45.909 - UNSPECIFIED ASTHMA, UNCOMPLICATED Qualifiers: Asthma severity: unspecified severity Asthma complication type: uncomplicated (3) Respiratory distress Code(s): R06.00 - DYSPNEA, UNSPECIFIED (4) Hypoxia Code(s): R09.02 - HYPOXEMIA (5) UTI (urinary tract infection) Code(s): N39.0 - URINARY TRACT INFECTION, SITE NOT SPECIFIED Qualifiers: Hematuria presence: with hematuria (6) Dementia Code(s): F03.90 - UNSPECIFIED DEMENTIA WITHOUT BEHAVIORAL DISTURBANCE Qualifiers: Dementia type: unspecified type (7) Leukocytosis Code(s): D72.829 - ELEVATED WHITE BLOOD CELL COUNT, UNSPECIFIED Qualifiers: Leukocytosis type: unspecified Qualified Code(s): D72.829 - Elevated white blood cell count, unspecified (8) Lactic acidosis Code(s): E87.2 - ACIDOSIS (9) Mobility impaired Code(s): Z74.09 - OTHER REDUCED MOBILITY (10) Needs assistance while at home Code(s): Z74.2 - NEED FOR ASSIST AT HOME & NO HOUSE MEMB ABLE TO RENDER CARE (11) Glucose intolerance Code(s): E74.39 - OTHER DISORDERS OF INTESTINAL CARBOHYDRATE ABSORPTION (12) Functional quadriplegia Code(s): R53.2 - FUNCTIONAL QUADRIPLEGIA
[2018-08-25] MEDS: methylPREDNISolone NA SUCC 40 MG/1 ML VIAL IVPUSH SCH ×3 (01:08→18:31)
[2018-08-25] MEDS: CLINDAMYCIN 600MG PREMIX IVPB 600 MG/50 ML BAG IVPB SCH ×3 (01:08→18:31)
[2018-08-25] MEDS: AMINO ACIDS 4.25%/D5W 1,000 ML IV SCH ×2 (02:29→19:55)
[2018-08-25] MEDS: INSULIN SLIDING SCALE (NOVOLOG) 1 VIAL SQ SCH ×4 (05:14→22:27)
[2018-08-25] MEDS: ALBUTEROL SO4 2.5/IPRATROPIUM 0.5 INH SOL 3 ML VIAL.NEB. NEB SCH ×3 (07:35→21:00)
[2018-08-25] MEDS: HEPARIN NA (PORCINE) 5,000 UNITS/ML 1ML VIAL SQ SCH ×2 (10:03→22:15)
[2018-08-25 13:37] LABS: CREATININE 0.7 mg/dL (0.55-1.3); POTASSIUM 3.2 mmol/L (3.5-5.1)
--- NOTE | 2018-08-25 14:02 | PN ---
Progress Note, COAL PIPELINE OPERATOR - Note Progress Note: Selected Entries 08/25/18 08/25/18 08/25/18 01:06 05:55 09:54 Breakfast 50% Diet Tolerated Fair Temperature 98.3 F 98.5 F 08/25/18 13:38 Breakfast Diet Tolerated Temperature 98.5 F Laboratory Tests 08/24/18 06:00 WBC 5.7 pt nonverbal, afebrile. Pt saturation 99% on O2. pt initially receiving puree dysphagia diet, nectar thick liquid. However, nursing felt tolerance was questionable on nectar thick liquid and pt was downgraded to honey thick liquid with better control. Oral holding lunchtime. SALES DEVELOPMENT DIRECTOR will try again. Concur with Puree/honey thick liquid on a tsp
--- NOTE | 2018-08-25 14:12 | PN ---
Progress Note (short form) - Note Progress Note: Current Medications Albuterol/Ipratropium (Duoneb -) 1 amp NEB RQID DIAMOND Last Admin: 08/25/18 07:35 Dose: 1 amp Heparin Sodium (Porcine) (Heparin -) 5,000 unit SQ BID DIAMOND Last Admin: 08/25/18 10:03 Dose: 5,000 unit Clindamycin Phosphate (Cleocin 600 Mg Premix Ivpb -) 600 mg in 50 mls @ 100 mls /hr IVPB Q8H-IV DIAMOND; Protocol Last Admin: 08/25/18 10:03 Dose: 100 mls/hr Levofloxacin (Levaquin 500 Mg Premixed Ivpb -) 500 mg in 100 mls @ 100 mls/hr IVPB Q24H DIAMOND; Protocol Last Admin: 08/24/18 22:39 Dose: 100 mls/hr Amino Acids (Clinimix -) 1,000 mls @ 50 mls/hr IV Q20H DIAMOND Last Admin: 08/25/18 02:29 Dose: 50 mls/hr Potassium Chloride (Potassium Chloride 10 Meq Premix Ivpb -) 10 meq in 100 mls @ 100 mls/hr IVPB Q60M DIAMOND Stop: 08/25/18 17:14 Insulin Aspart (Novolog Vial Sliding Scale -) 1 vial SQ Q6H DIAMOND; Protocol Last Admin: 08/25/18 12:20 Dose: 3 units Methylprednisolone Sodium Succinate (Solu-Medrol -) 40 mg IVPUSH Q8H-IV DIAMOND Last Admin: 08/25/18 10:03 Dose: 40 mg Laboratory Results - last 24 hr 08/24/18 08/24/18 08/25/18 16:23 22:37 05:12 Sodium Potassium Chloride Carbon Dioxide Anion Gap BUN Creatinine Est GFR (CKD-EPI)AfAm Est GFR (CKD-EPI)NonAf POC Glucometer 181 207 189 Random Glucose Calcium 08/25/18 08/25/18 11:10 12:22 Sodium 139 Potassium 3.2 L Chloride 101 Carbon Dioxide 29 Anion Gap 10 BUN 26 H Creatinine 0.7 Est GFR (CKD-EPI)AfAm 90.29 Est GFR (CKD-EPI)NonAf 77.90 POC Glucometer 255 Random Glucose 247 H Calcium 9.0 Vital Signs Temperature 98.5 F 08/25/18 13:38 Pulse Rate 97 H 08/25/18 13:38 Respiratory Rate 20 08/25/18 13:38 Blood Pressure 126/69 08/25/18 13:38 O2 Sat by Pulse Oximetry (%) 98 08/25/18 09:00 CC: not able to speak ```````````````````` skin--cheeks bilat flushed eyes--opens eyes; has symmetric gaze neck --rigid heart--RR lungs--clear anteriorly abd--mild distention, no guarding ext--contractures on all 4 extrem & rigid neuro--rare vocalizations; unable to verbalize; cognition severely impaired; global rigidity; does not speak/converse, unable to follow commands ``````````````````````````````` Summ > PNA--aspiration type; 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, PLAN:cont current [place] w/ dual Abs; Neb & steroids; cont PO feeds > Resp failure--2nd aspiration PNA: CXR improved; saturating over 95% on 3L/min NC > Asthma--stable; on IV steroids & Nebs > hyperglycemia--not new has gluc intol or mild DM; sugars made higher by steroids > Low potassium--replenish as needed > 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 > Immobility status--prone to pressure sores; will cont air-mat; & Alberto ~~~~~~~~~~~~~~ Dr Harris Problem List - Problems (1) Pneumonia Code(s): J18.9 - PNEUMONIA, UNSPECIFIED ORGANISM Qualifiers: Pneumonia type: aspiration pneumonia Laterality: right Lung location: unspecified part of lung (2) Asthma Code(s): J45.909 - UNSPECIFIED ASTHMA, UNCOMPLICATED Qualifiers: Asthma severity: unspecified severity Asthma complication type: uncomplicated (3) Respiratory distress Code(s): R06.00 - DYSPNEA, UNSPECIFIED (4) Hypoxia Code(s): R09.02 - HYPOXEMIA (5) UTI (urinary tract infection) Code(s): N39.0 - URINARY TRACT INFECTION, SITE NOT SPECIFIED Qualifiers: Hematuria presence: with hematuria (6) Dementia Code(s): F03.90 - UNSPECIFIED DEMENTIA WITHOUT BEHAVIORAL DISTURBANCE Qualifiers: Dementia type: unspecified type (7) Leukocytosis Code(s): D72.829 - ELEVATED WHITE BLOOD CELL COUNT, UNSPECIFIED Qualifiers: Leukocytosis type: unspecified Qualified Code(s): D72.829 - Elevated white blood cell count, unspecified (8) Lactic acidosis Code(s): E87.2 - ACIDOSIS (9) Mobility impaired Code(s): Z74.09 - OTHER REDUCED MOBILITY (10) Needs assistance while at home Code(s): Z74.2 - NEED FOR ASSIST AT HOME & NO HOUSE MEMB ABLE TO RENDER CARE (11) Glucose intolerance Code(s): E74.39 - OTHER DISORDERS OF INTESTINAL CARBOHYDRATE ABSORPTION (12) Functional quadriplegia Code(s): R53.2 - FUNCTIONAL QUADRIPLEGIA
[2018-08-25] MEDS: KCL 10 MEQ IVPB 10 MEQ/100 ML INFUS.BAG IVPB SCH ×3 (16:06→19:54)
[2018-08-25] MEDS ORDERED: INSULIN (NOVOLOG) ASPART 100 UNITS/ML 10ML VIAL ONE (20:51)
[2018-08-26] MEDS: methylPREDNISolone NA SUCC 40 MG/1 ML VIAL IVPUSH SCH ×3 (02:09→17:27)
[2018-08-26] MEDS: CLINDAMYCIN 600MG PREMIX IVPB 600 MG/50 ML BAG IVPB SCH ×3 (02:09→17:27)
[2018-08-26] MEDS: INSULIN SLIDING SCALE (NOVOLOG) 1 VIAL SQ SCH ×4 (05:53→23:50)
[2018-08-26 07:33] LABS: CALCIUM 8.6 mg/dL (8.5-10.1); CREATININE 0.7 mg/dL (0.55-1.3); POTASSIUM 4.2 mmol/L (3.5-5.1)
[2018-08-26] MEDS: ALBUTEROL SO4 2.5/IPRATROPIUM 0.5 INH SOL 3 ML VIAL.NEB. NEB SCH ×4 (07:40→20:30)
[2018-08-26 08:08] LABS: HEMATOCRIT 34.2 % (32.4-45.2); HEMOGLOBIN 11.3 GM/dL (10.7-15.3); MCH 29.4 pg (25.7-33.7); MCHC 33.1 g/dl (32.0-36.0); MEAN PLT VOLUME 9.5 fl (7.5-11.1); PLATELET COUNT 203 K/MM3 (134-434); RBC 3.84 M/mm3 (3.60-5.2); WHITE BLOOD COUNT 8.5 K/mm3 (4.0-10.0)
[2018-08-26] MEDS: HEPARIN NA (PORCINE) 5,000 UNITS/ML 1ML VIAL SQ SCH ×2 (10:50→21:58)
--- NOTE | 2018-08-26 14:16 | PN ---
Progress Note (short form) - Note Progress Note: Covering for Dr Harris CHart reviewed case discussed with Nurse patient nonverbal, being fed at time of visit HOB > 45 degrees No distress Vital Signs Period Temp Pulse Resp BP Sys/Ford Pulse Ox Last 24 Hr 98.3 F-98.4 F 69-97 20-21 131-147/68-80 96-99 Neck hypersxtended / no JVD heart S1/S2 regular lungs good air movement mild wheezing on mid right field abd soft non tenderness / no guarding ext contracture hands and feet / foot drop / bilat heel dressing in place no edema Neuro - unchanged CBC, BMP 08/26/18 06:59 08/26/18 06:59 Microbiology 08/20/18 21:30 Blood - Peripheral Venous Blood Culture - Final NO GROWTH AFTER 5 DAYS INCUBATION 08/20/18 21:30 Blood - Peripheral Venous Blood Culture - Final NO GROWTH AFTER 5 DAYS INCUBATION 08/22/18 09:55 Urine For Antigen Detection Legionella Antigen - Final 08/22/18 09:55 Urine For Antigen Detection Streptococcus pneumoniae Antigen (M - Final 08/20/18 21:35 Urine - Urine Dominguez Urine Culture - Final Contaminated: Please Repeat Active Medications Albuterol/Ipratropium (Duoneb -) 1 amp NEB RQID DIAMOND Last Admin: 08/26/18 11:45 Dose: 1 amp Heparin Sodium (Porcine) (Heparin -) 5,000 unit SQ BID DIAMOND Last Admin: 08/26/18 10:50 Dose: 5,000 unit Clindamycin Phosphate (Cleocin 600 Mg Premix Ivpb -) 600 mg in 50 mls @ 100 mls /hr IVPB Q8H-IV DIAMOND; Protocol Last Admin: 08/26/18 10:50 Dose: 100 mls/hr Levofloxacin (Levaquin 500 Mg Premixed Ivpb -) 500 mg in 100 mls @ 100 mls/hr IVPB Q24H DIAMOND; Protocol Last Admin: 08/25/18 22:15 Dose: 100 mls/hr Amino Acids (Clinimix -) 1,000 mls @ 50 mls/hr IV Q20H DIAMOND Last Admin: 08/25/18 19:55 Dose: 50 mls/hr Insulin Aspart (Novolog Vial Sliding Scale -) 1 vial SQ Q6H DIAMOND; Protocol Last Admin: 08/26/18 12:34 Dose: Not Given Methylprednisolone Sodium Succinate (Solu-Medrol -) 40 mg IVPUSH Q8H-IV DIAMOND Last Admin: 08/26/18 10:50 Dose: 40 mg assmt / plan # PNA - aspiration ABX / nebulizer / steroids feeding precautions for aspiration will elevate HOB further -- discussed with nursing if persist will re - valuate with speech # Asthma continue steroids / nebulizer tx #DM pre / mild DM - made worse 2/2 to steroids monitor and treat hyperglycemia as needed #Dementia functional quadreplegia full assists for all ADLs no apparent comprehension / does not follow commands
[2018-08-26] MEDS: AMINO ACIDS 4.25%/D5W 1,000 ML IV SCH ×2 (16:42→23:50)
[2018-08-27] MEDS: methylPREDNISolone NA SUCC 40 MG/1 ML VIAL IVPUSH SCH ×3 (01:53→21:11)
[2018-08-27] MEDS: CLINDAMYCIN 600MG PREMIX IVPB 600 MG/50 ML BAG IVPB SCH ×3 (01:53→17:22)
[2018-08-27] MEDS ORDERED: PT OWN MED DRAWER 7, Y5N ONE (05:31)
[2018-08-27] MEDS: INSULIN SLIDING SCALE (NOVOLOG) 1 VIAL SQ SCH ×4 (06:04→23:50)
[2018-08-27] MEDS: ALBUTEROL SO4 2.5/IPRATROPIUM 0.5 INH SOL 3 ML VIAL.NEB. NEB SCH ×4 (07:35→20:33)
[2018-08-27] MEDS: HEPARIN NA (PORCINE) 5,000 UNITS/ML 1ML VIAL SQ SCH ×2 (10:41→21:11)
--- NOTE | 2018-08-27 11:04 | PN ---
Progress Note (short form) - Note Progress Note: Covering for Dr Harris case discussed with Nurse tolerating "some PO" patient nonverbal, HOB > 45 degrees No distress Vital Signs Period Temp Pulse Resp BP Sys/Ford Pulse Ox Last 24 Hr 98.3 F-98.4 F 69-97 20-21 131-147/68-80 96-99 Neck no JVD heart S1/S2 regular lungs good air movement no wheezing abd soft non tenderness / no guarding ext contracture hands and feet / foot drop / bilat heel dressing in place no edema Neuro - unchanged CBC, BMP 08/26/18 06:59 08/26/18 06:59 Microbiology 08/20/18 21:30 Blood - Peripheral Venous Blood Culture - Final NO GROWTH AFTER 5 DAYS INCUBATION 08/20/18 21:30 Blood - Peripheral Venous Blood Culture - Final NO GROWTH AFTER 5 DAYS INCUBATION 08/22/18 09:55 Urine For Antigen Detection Legionella Antigen - Final 08/22/18 09:55 Urine For Antigen Detection Streptococcus pneumoniae Antigen (M - Final 08/20/18 21:35 Urine - Urine Dominguez Urine Culture - Final Contaminated: Please Repeat Active Medications Albuterol/Ipratropium (Duoneb -) 1 amp NEB RQID DIAMOND Last Admin: 08/27/18 07:35 Dose: 1 amp Heparin Sodium (Porcine) (Heparin -) 5,000 unit SQ BID DIAMOND Last Admin: 08/27/18 10:41 Dose: 5,000 unit Clindamycin Phosphate (Cleocin 600 Mg Premix Ivpb -) 600 mg in 50 mls @ 100 mls /hr IVPB Q8H-IV DIAMOND; Protocol Last Admin: 08/27/18 10:41 Dose: 100 mls/hr Levofloxacin (Levaquin 500 Mg Premixed Ivpb -) 500 mg in 100 mls @ 100 mls/hr IVPB Q24H DIAMOND; Protocol Last Admin: 08/26/18 21:58 Dose: 100 mls/hr Amino Acids (Clinimix -) 1,000 mls @ 50 mls/hr IV Q20H DIAMOND Last Admin: 08/26/18 23:50 Dose: Not Given Insulin Aspart (Novolog Vial Sliding Scale -) 1 vial SQ Q6H DIAMOND; Protocol Last Admin: 08/27/18 06:04 Dose: Not Given Methylprednisolone Sodium Succinate (Solu-Medrol -) 40 mg IVPUSH Q8H-IV DIAMOND Last Admin: 08/27/18 10:41 Dose: 40 mg assmt / plan # PNA - aspiration ABX / nebulizer / steroids feeding precautions for aspiration will elevate HOB further -- discussed with nursing improved today # Asthma continue steroids / nebulizer tx #DM pre / mild DM - made worse 2/2 to steroids monitor and treat hyperglycemia as needed #Dementia functional quadreplegia full assists for all ADLs no apparent comprehension / does not follow commands
[2018-08-27] MEDS: AMINO ACIDS 4.25%/D5W 1,000 ML IV SCH (16:23)
[2018-08-28] MEDS: CLINDAMYCIN 600MG PREMIX IVPB 600 MG/50 ML BAG IVPB SCH ×2 (02:04→10:15)
[2018-08-28] MEDS: INSULIN SLIDING SCALE (NOVOLOG) 1 VIAL SQ SCH ×4 (05:22→22:21)
[2018-08-28 07:09] LABS: BASO % 0.1 % (0-2.0); HEMATOCRIT 33.5 % (32.4-45.2); HEMOGLOBIN 11.3 GM/dL (10.7-15.3); LYMPH % 4.5 % (8-40); MCH 29.6 pg (25.7-33.7); MCHC 33.7 g/dl (32.0-36.0); MEAN CELL VOLUME 87.9 fl (80-96); MEAN PLT VOLUME 8.9 fl (7.5-11.1); NEUT % 91.4 % (42.8-82.8); PLATELET COUNT 211 K/MM3 (134-434); RBC 3.81 M/mm3 (3.60-5.2); RDW 15.1 % (11.6-15.6); WHITE BLOOD COUNT 9.6 K/mm3 (4.0-10.0)
[2018-08-28 07:35] LABS: CREATININE 0.4 mg/dL (0.55-1.3); POTASSIUM 4.4 mmol/L (3.5-5.1)
[2018-08-28] MEDS: ALBUTEROL SO4 2.5/IPRATROPIUM 0.5 INH SOL 3 ML VIAL.NEB. NEB SCH ×3 (07:35→20:23)
[2018-08-28] MEDS: HEPARIN NA (PORCINE) 5,000 UNITS/ML 1ML VIAL SQ SCH ×2 (10:14→21:55)
[2018-08-28] MEDS: AMINO ACIDS 4.25%/D5W 1,000 ML IV SCH ×2 (10:14→11:12)
[2018-08-28] MEDS: methylPREDNISolone NA SUCC 40 MG/1 ML VIAL IVPUSH SCH ×2 (10:14→21:55)
[2018-08-28 11:16] LABS: ANISOCYTOSIS 1+; MACROCYTOSIS 0; PLATELET ESTIMATE NORMAL; TEAR DROP CELLS 1+
--- NOTE | 2018-08-28 12:08 | PN ---
Progress Note, SCRAP BALER - Note Progress Note: Selected Entries 08/27/18 08/27/18 08/27/18 09:38 13:18 22:37 Breakfast 25% Lunch 50% Supper 25% Temperature 08/28/18 08/28/18 05:41 10:37 Breakfast 25% Lunch Supper Temperature 98.6 F Laboratory Tests 08/28/18 05:55 WBC 9.6 Intermittent PO acceptance, pursing lips or tightly sealed. Occasional mouth opening, accepting tip of spoon. Oral holding and delayed swallow onset. Po intake is inconsistent due to impaired cognition, oral/pharyngeal Apraxia, oral defensiveness. Trial of thick liquid on teaspoon/med cup, small sips at a time. monitor for swallow before next trial. Alternate warm/cold/sweet/savory/puree/liquid to facilitate swallow onset.
--- NOTE | 2018-08-28 13:23 | PN ---
Progress Note (short form) - Note Progress Note: Current Medications Albuterol/Ipratropium (Duoneb -) 1 amp NEB RQID [facility] Last Admin: 08/28/18 07:35 Dose: 1 amp Heparin Sodium (Porcine) (Heparin -) 5,000 unit SQ BID [facility] Last Admin: 08/28/18 10:14 Dose: 5,000 unit Clindamycin Phosphate (Cleocin 600 Mg Premix Ivpb -) 600 mg in 50 mls @ 100 mls /hr IVPB Q8H-IV [facility]; Protocol Last Admin: 08/28/18 10:15 Dose: 100 mls/hr Levofloxacin (Levaquin 500 Mg Premixed Ivpb -) 500 mg in 100 mls @ 100 mls/hr IVPB Q24H [facility]; Protocol Last Admin: 08/27/18 21:10 Dose: 100 mls/hr Amino Acids (Clinimix -) 1,000 mls @ 50 mls/hr IV Q20H [facility] Last Admin: 08/28/18 11:12 Dose: Not Given Insulin Aspart (Novolog Vial Sliding Scale -) 1 vial SQ Q6H [facility]; Protocol Last Admin: 08/28/18 11:22 Dose: Not Given Methylprednisolone Sodium Succinate (Solu-Medrol -) 40 mg IVPUSH BID [facility] Last Admin: 08/28/18 10:14 Dose: 40 mg Laboratory Results - last 24 hr 08/27/18 08/27/18 08/28/18 17:07 21:18 05:21 WBC RBC Hgb Hct MCV MCH MCHC RDW Plt Count MPV Absolute Neuts (auto) Neutrophils % Neutrophils % (Manual) Band Neutrophils % Lymphocytes % Lymphocytes % (Manual) Monocytes % Monocytes % (Manual) Eosinophils % Eosinophils % (Manual) Basophils % Basophils % (Manual) Myelocytes % (Man) Promyelocytes % (Man) Blast Cells % (Manual) Nucleated RBC % Metamyelocytes Hypochromia Platelet Estimate Polychromasia Poikilocytosis Anisocytosis Microcytosis Macrocytosis Spherocytes Tear Drop Cells Sodium Potassium Chloride Carbon Dioxide Anion Gap BUN Creatinine Est GFR (CKD-EPI)AfAm Est GFR (CKD-EPI)NonAf POC Glucometer 273 225 237 Random Glucose Calcium 08/28/18 08/28/18 08/28/18 05:55 05:55 11:16 WBC 9.6 RBC 3.81 Hgb 11.3 Hct 33.5 MCV 87.9 MCH 29.6 MCHC 33.7 RDW 15.1 Plt Count 211 MPV 8.9 Absolute Neuts (auto) 8.7 H Neutrophils % 91.4 H Neutrophils % (Manual) 89.9 H Band Neutrophils % 0.0 Lymphocytes % 4.5 L Lymphocytes % (Manual) 3.0 L Monocytes % 4.0 Monocytes % (Manual) 3 L Eosinophils % 0.0 D Eosinophils % (Manual) 0.0 Basophils % 0.1 Basophils % (Manual) 0.0 Myelocytes % (Man) 0 Promyelocytes % (Man) 0 Blast Cells % (Manual) 0 Nucleated RBC % 0 Metamyelocytes 0 Hypochromia 0 Platelet Estimate Normal Polychromasia 1+ Poikilocytosis 1+ Anisocytosis 1+ Microcytosis 1+ Macrocytosis 0 Spherocytes 1+ Tear Drop Cells 1+ Sodium 137 Potassium 4.4 Chloride 101 Carbon Dioxide 31 Anion Gap 5 L BUN 25 H Creatinine 0.4 L Est GFR (CKD-EPI)AfAm 108.54 Est GFR (CKD-EPI)NonAf 93.65 POC Glucometer 209 Random Glucose 219 H Calcium 9.0 Vital Signs Temperature 98.6 F 08/28/18 05:41 Pulse Rate 70 08/28/18 05:41 Respiratory Rate 20 08/28/18 09:00 Blood Pressure 149/89 08/28/18 05:41 O2 Sat by Pulse Oximetry (%) 100 08/28/18 09:00 CC: not able to speak ```````````````````` skin--cheeks bilat flushed; IV site non red eyes--opens eyes; has symmetric gaze neck --rigid heart--RR lungs--clear anteriorly abd--mild distention, no guarding ext--contractures on all 4 extrem & rigid neuro--rare vocalizations; unable to verbalize; cognition severely impaired; global rigidity; does not speak/converse, unable to follow commands ``````````````````````````````` Summ > PNA--aspiration type; OPEN DEVELOPER OPERATOR 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, CXR grosly the samePLAN:cont current TX w/ dual Abs; Neb & steroids; cont PO feeds > feeding diff--erratic PO intake; 2nd cogn dysf; (does not wish artificial feeds as per adv directives) > Resp failure--2nd aspiration PNA: CXR same as previous; saturating well on Nasal oxygen > Asthma--stable; on IV steroids & Nebs; will taper the steroids slowly > hyperglycemia--not new has gluc intol or mild DM; sugars made higher by steroids > Low potassium--replenish as needed > 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 > Immobility status--prone to pressure sores; will cont air-mat; & Dominguez ~~~~~~~~~~~~~~ Dr Harris Problem List - Problems (1) Pneumonia Code(s): J18.9 - PNEUMONIA, UNSPECIFIED ORGANISM Qualifiers: Pneumonia type: aspiration pneumonia Laterality: right Lung location: unspecified part of lung (2) Asthma Code(s): J45.909 - UNSPECIFIED ASTHMA, UNCOMPLICATED Qualifiers: Asthma severity: unspecified severity Asthma complication type: uncomplicated (3) Respiratory distress Code(s): R06.00 - DYSPNEA, UNSPECIFIED (4) Hypoxia Code(s): R09.02 - HYPOXEMIA (5) UTI (urinary tract infection) Code(s): N39.0 - URINARY TRACT INFECTION, SITE NOT SPECIFIED Qualifiers: Hematuria presence: with hematuria (6) Dementia Code(s): F03.90 - UNSPECIFIED DEMENTIA WITHOUT BEHAVIORAL DISTURBANCE Qualifiers: Dementia type: unspecified type (7) Leukocytosis Code(s): D72.829 - ELEVATED WHITE BLOOD CELL COUNT, UNSPECIFIED Qualifiers: Leukocytosis type: unspecified Qualified Code(s): D72.829 - Elevated white blood cell count, unspecified (8) Lactic acidosis Code(s): E87.2 - ACIDOSIS (9) Mobility impaired Code(s): Z74.09 - OTHER REDUCED MOBILITY (10) Needs assistance while at home Code(s): Z74.2 - NEED FOR ASSIST AT HOME & NO HOUSE MEMB ABLE TO RENDER CARE (11) Glucose intolerance Code(s): E74.39 - OTHER DISORDERS OF INTESTINAL CARBOHYDRATE ABSORPTION (12) Functional quadriplegia Code(s): R53.2 - FUNCTIONAL QUADRIPLEGIA
--- NOTE | 2018-08-28 14:31 | PN ---
Progress Note (short form) - Note Progress Note: on nasal canulla no bipap since last week Vital Signs Period Temp Pulse Resp BP Sys/Ford Pulse Ox Last 24 Hr 97.7 F-98.9 F 70-82 20-20 127-149/69-89 96-100 cor-rrr lungs decreased bs at bases abd soft,nt ext no edema CBC, BMP 08/28/18 05:55 08/28/18 05:55 Microbiology 08/20/18 21:30 Blood - Peripheral Venous Blood Culture - Final NO GROWTH AFTER 5 DAYS INCUBATION 08/20/18 21:30 Blood - Peripheral Venous Blood Culture - Final NO GROWTH AFTER 5 DAYS INCUBATION 08/22/18 09:55 Urine For Antigen Detection Legionella Antigen - Final 08/22/18 09:55 Urine For Antigen Detection Streptococcus pneumoniae Antigen (M - Final 08/20/18 21:35 Urine - Urine Dominguez Urine Culture - Final Contaminated: Please Repeat cxray unchanged a/p bilateral pneumonia no respiratory distress poor po intake multiple antibiotic allergies (pen, ceftriaxone) severe dementia clindamycin/levaquin day #7 dc clindamycin continue levaquin another 72 hours Problem List - Problems (1) Acute respiratory distress Code(s): J80 - ACUTE RESPIRATORY DISTRESS SYNDROME (2) Pneumonia Code(s): J18.9 - PNEUMONIA, UNSPECIFIED ORGANISM Qualifiers: Pneumonia type: aspiration pneumonia Laterality: right Lung location: unspecified part of lung (3) Allergy to multiple antibiotics Code(s): Z88.1 - ALLERGY STATUS TO OTHER ANTIBIOTIC AGENTS STATUS (4) Dementia Code(s): F03.90 - UNSPECIFIED DEMENTIA WITHOUT BEHAVIORAL DISTURBANCE Qualifiers: Dementia type: unspecified type
[2018-08-29] MEDS: AMINO ACIDS 4.25%/D5W 1,000 ML IV SCH ×3 (01:06→17:10)
[2018-08-29] MEDS: INSULIN SLIDING SCALE (NOVOLOG) 1 VIAL SQ SCH ×4 (06:45→23:00)
[2018-08-29 07:27] LABS: ALBUMIN 2.9 g/dl (3.4-5.0); BILIRUBIN,TOTAL 0.3 mg/dL (0.2-1); CALCIUM 8.9 mg/dL (8.5-10.1); CREATININE 0.5 mg/dL (0.55-1.3); POTASSIUM 4.6 mmol/L (3.5-5.1); TOT PROT 6.1 g/dl (6.4-8.2)
[2018-08-29] MEDS: ALBUTEROL SO4 2.5/IPRATROPIUM 0.5 INH SOL 3 ML VIAL.NEB. NEB SCH ×5 (08:00→20:00)
[2018-08-29] MEDS ORDERED: BISACODYL 10 MG SUPP.RECT RC ONE (09:03)
[2018-08-29] MEDS: methylPREDNISolone NA SUCC 40 MG/1 ML VIAL IVPUSH SCH ×2 (10:26→21:57)
[2018-08-29] MEDS: HEPARIN NA (PORCINE) 5,000 UNITS/ML 1ML VIAL SQ SCH ×2 (10:26→21:58)
--- NOTE | 2018-08-29 12:03 | PN ---
Progress Note, CALL PERSON - Note Progress Note: Selected Entries 08/28/18 08/28/18 08/28/18 05:41 10:37 14:56 Breakfast 25% Lunch 50% Supper Temperature 98.6 F 97.8 F 08/28/18 08/28/18 08/29/18 16:50 18:48 00:00 Breakfast Lunch Supper 25% Temperature 98.2 F 98.1 F 08/29/18 08/29/18 08/29/18 05:49 10:00 10:29 Breakfast 50% Lunch Supper Temperature 98.1 F 98.8 F Laboratory Tests 08/28/18 05:55 WBC 9.6 Intermittent PO acceptance, at times does well. Family considering [facility] placement.
--- NOTE | 2018-08-29 16:10 | PN ---
Progress Note (short form) - Note Progress Note: Current Medications Albuterol/Ipratropium (Duoneb -) 1 amp NEB RQID [facility] Last Admin: 08/29/18 11:45 Dose: 1 amp Heparin Sodium (Porcine) (Heparin -) 5,000 unit SQ BID [facility] Last Admin: 08/29/18 10:26 Dose: 5,000 unit Levofloxacin (Levaquin 500 Mg Premixed Ivpb -) 500 mg in 100 mls @ 100 mls/hr IVPB Q24H [facility]; Protocol Last Admin: 08/28/18 21:56 Dose: 100 mls/hr Amino Acids (Clinimix -) 1,000 mls @ 50 mls/hr IV Q20H [facility] Last Admin: 08/29/18 06:45 Dose: Not Given Insulin Aspart (Novolog Vial Sliding Scale -) 1 vial SQ Q6H [facility]; Protocol Last Admin: 08/29/18 15:21 Dose: Not Given Methylprednisolone Sodium Succinate (Solu-Medrol -) 40 mg IVPUSH BID [facility] Last Admin: 08/29/18 10:26 Dose: 40 mg Laboratory Results - last 24 hr 08/28/18 08/28/18 08/29/18 16:31 22:19 05:04 Sodium Potassium Chloride Carbon Dioxide Anion Gap BUN Creatinine Est GFR (CKD-EPI)AfAm Est GFR (CKD-EPI)NonAf POC Glucometer 290 214 246 Random Glucose Calcium Total Bilirubin AST ALT Alkaline Phosphatase Total Protein Albumin 08/29/18 08/29/18 06:30 11:37 Sodium 134 L Potassium 4.6 Chloride 100 Carbon Dioxide 32 Anion Gap 2 L BUN 26 H Creatinine 0.5 L Est GFR (CKD-EPI)AfAm 100.86 Est GFR (CKD-EPI)NonAf 87.02 POC Glucometer 209 Random Glucose 214 H Calcium 8.9 Total Bilirubin 0.3 AST 7 L ALT 17 Alkaline Phosphatase 58 Total Protein 6.1 L Albumin 2.9 L Vital Signs Temperature 97.7 F 08/29/18 14:20 Pulse Rate 103 H 08/29/18 14:20 Respiratory Rate 18 08/29/18 14:20 Blood Pressure 105/60 08/29/18 14:20 O2 Sat by Pulse Oximetry (%) 99 08/29/18 09:00 CC: not able to speak ```````````````````` skin--cheeks bilat flushed; IV site non red eyes--opens eyes; has symmetric gaze neck --rigid heart--RR lungs--clear anteriorly abd--mild distention, no guarding ext--contractures on all 4 extrem & rigid neuro--rare vocalizations; unable to verbalize; cognition severely impaired; global rigidity; does not speak/converse, unable to follow commands ``````````````````````````````` Summ > PNA--aspiration type; MAINTENANCE TEAM MEMBER 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, CXR the same PLAN:cont current TX w/ dual Abs; Neb & steroids; cont PO feeds > feeding diff--erratic PO intake but better today; 2nd cogn dysf; (does not wish artificial feeds as per adv directives) > Resp failure--2nd aspiration PNA: CXR same as previous; saturating well on Nasal oxygen; PLAN: D/c Bipap > Asthma--stable; on IV steroids & Nebs; will taper the steroids slowly > hyperglycemia--not new has gluc intol or mild DM; sugars made higher by steroids > Low potassium--replenish as needed > 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; PLAN: hospice placement being explored > Immobility status--prone to pressure sores; will cont air-mat; & Alberto ~~~~~~~~~~~~~~ Dr Harris Problem List - Problems (1) Pneumonia Code(s): J18.9 - PNEUMONIA, UNSPECIFIED ORGANISM Qualifiers: Pneumonia type: aspiration pneumonia Laterality: right Lung location: unspecified part of lung (2) Asthma Code(s): J45.909 - UNSPECIFIED ASTHMA, UNCOMPLICATED Qualifiers: Asthma severity: unspecified severity Asthma complication type: uncomplicated (3) Respiratory distress Code(s): R06.00 - DYSPNEA, UNSPECIFIED (4) Hypoxia Code(s): R09.02 - HYPOXEMIA (5) UTI (urinary tract infection) Code(s): N39.0 - URINARY TRACT INFECTION, SITE NOT SPECIFIED Qualifiers: Hematuria presence: with hematuria (6) Dementia Code(s): F03.90 - UNSPECIFIED DEMENTIA WITHOUT BEHAVIORAL DISTURBANCE Qualifiers: Dementia type: unspecified type (7) Leukocytosis Code(s): D72.829 - ELEVATED WHITE BLOOD CELL COUNT, UNSPECIFIED Qualifiers: Leukocytosis type: unspecified Qualified Code(s): D72.829 - Elevated white blood cell count, unspecified (8) Lactic acidosis Code(s): E87.2 - ACIDOSIS (9) Mobility impaired Code(s): Z74.09 - OTHER REDUCED MOBILITY (10) Needs assistance while at home Code(s): Z74.2 - NEED FOR ASSIST AT HOME & NO HOUSE MEMB ABLE TO RENDER CARE (11) Glucose intolerance Code(s): E74.39 - OTHER DISORDERS OF INTESTINAL CARBOHYDRATE ABSORPTION (12) Functional quadriplegia Code(s): R53.2 - FUNCTIONAL QUADRIPLEGIA
[2018-08-29] MEDS ORDERED: INSULIN (NOVOLOG) ASPART 100 UNITS/ML 10ML VIAL ONE (20:53)
[2018-08-29] MEDS ORDERED: PT OWN MED DRAWER 7, Y5N ONE (22:40)
[2018-08-30] MEDS: INSULIN SLIDING SCALE (NOVOLOG) 1 VIAL SQ SCH ×4 (05:39→22:42)
[2018-08-30] MEDS: ALBUTEROL SO4 2.5/IPRATROPIUM 0.5 INH SOL 3 ML VIAL.NEB. NEB SCH ×4 (07:35→20:30)
[2018-08-30 08:09] LABS: CALCIUM 8.6 mg/dL (8.5-10.1); CREATININE 0.5 mg/dL (0.55-1.3); POTASSIUM 4.6 mmol/L (3.5-5.1)
[2018-08-30] MEDS: methylPREDNISolone NA SUCC 40 MG/1 ML VIAL IVPUSH SCH ×2 (09:49→21:21)
[2018-08-30] MEDS: HEPARIN NA (PORCINE) 5,000 UNITS/ML 1ML VIAL SQ SCH ×2 (09:49→21:20)
--- NOTE | 2018-08-30 12:29 | PN ---
Progress Note, PAINTING CONTRACTOR - Note Progress Note: Selected Entries 08/30/18 08/30/18 08/30/18 05:49 10:13 11:19 Breakfast 25% Temperature 97.8 F 97.6 F Limited PO acceptance and swallow initiation secondary to Dementia. Risk od aspiration, malnutrition, dehydration. Prognosis guarded. Pt followed by Palliative care.
--- NOTE | 2018-08-30 14:47 | PN ---
Progress Note (short form) - Note Progress Note: Current Medications Albuterol/Ipratropium (Duoneb -) 1 amp NEB RQID [facility] Last Admin: 08/30/18 11:25 Dose: 1 amp Heparin Sodium (Porcine) (Heparin -) 5,000 unit SQ BID [facility] Last Admin: 08/30/18 09:49 Dose: 5,000 unit Levofloxacin (Levaquin 500 Mg Premixed Ivpb -) 500 mg in 100 mls @ 100 mls/hr IVPB Q24H [facility]; Protocol Last Admin: 08/29/18 21:57 Dose: 100 mls/hr Amino Acids (Clinimix -) 1,000 mls @ 40 mls/hr IV Q24H [facility] Last Admin: 08/29/18 17:10 Dose: 40 mls/hr Insulin Aspart (Novolog Vial Sliding Scale -) 1 vial SQ Q6H [facility]; Protocol Last Admin: 08/30/18 11:06 Dose: Not Given Methylprednisolone Sodium Succinate (Solu-Medrol -) 20 mg IVPUSH BID [facility] Last Admin: 08/30/18 09:49 Dose: 20 mg Laboratory Results - last 24 hr 08/29/18 08/29/18 08/30/18 16:49 22:59 05:38 Sodium Potassium Chloride Carbon Dioxide Anion Gap BUN Creatinine Est GFR (CKD-EPI)AfAm Est GFR (CKD-EPI)NonAf POC Glucometer 304 248 254 Random Glucose Calcium 08/30/18 08/30/18 06:30 11:05 Sodium 137 Potassium 4.6 Chloride 101 Carbon Dioxide 29 Anion Gap 7 L BUN 27 H Creatinine 0.5 L Est GFR (CKD-EPI)AfAm 100.86 Est GFR (CKD-EPI)NonAf 87.02 POC Glucometer 135 Random Glucose 230 H Calcium 8.6 Vital Signs Temperature 98.2 F 08/30/18 14:09 Pulse Rate 83 08/30/18 14:09 Respiratory Rate 20 08/30/18 14:09 Blood Pressure 90/48 L 08/30/18 14:09 O2 Sat by Pulse Oximetry (%) 100 08/30/18 09:00 CC: not able to speak ```````````````````` skin--cheeks bilat flushed; IV site non red eyes--kept shut neck --rigid heart--RR lungs--clear anteriorly abd--BS+, mild distention, no guarding ext--contractures on all 4 extrem & rigid neuro--rare vocalizations; unable to verbalize; cognition severely impaired; global rigidity; does not speak/converse, unable to follow commands ``````````````````````````````` Summ > PNA--aspiration type; PICTURE ENGRAVER 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, PLAN: d/c Abs in Am; and will repeat CXR. 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 He was informed that she could again aspirate her food as she did upon arrival. He understood and acknowledged it, but he was willing to attempt putting her back into her own home with the same program. ~~~~~~~~~~~~~~ Dr Harris Problem List - Problems (1) Pneumonia Code(s): J18.9 - PNEUMONIA, UNSPECIFIED ORGANISM Qualifiers: Pneumonia type: aspiration pneumonia Laterality: right Lung location: unspecified part of lung (2) Asthma Code(s): J45.909 - UNSPECIFIED ASTHMA, UNCOMPLICATED Qualifiers: Asthma severity: unspecified severity Asthma complication type: uncomplicated (3) Respiratory distress Code(s): R06.00 - DYSPNEA, UNSPECIFIED (4) Hypoxia Code(s): R09.02 - HYPOXEMIA (5) UTI (urinary tract infection) Code(s): N39.0 - URINARY TRACT INFECTION, SITE NOT SPECIFIED Qualifiers: Hematuria presence: with hematuria (6) Dementia Code(s): F03.90 - UNSPECIFIED DEMENTIA WITHOUT BEHAVIORAL DISTURBANCE Qualifiers: Dementia type: unspecified type (7) Leukocytosis Code(s): D72.829 - ELEVATED WHITE BLOOD CELL COUNT, UNSPECIFIED Qualifiers: Leukocytosis type: unspecified Qualified Code(s): D72.829 - Elevated white blood cell count, unspecified (8) Lactic acidosis Code(s): E87.2 - ACIDOSIS (9) Mobility impaired Code(s): Z74.09 - OTHER REDUCED MOBILITY (10) Needs assistance while at home Code(s): Z74.2 - NEED FOR ASSIST AT HOME & NO HOUSE MEMB ABLE TO RENDER CARE (11) Glucose intolerance Code(s): E74.39 - OTHER DISORDERS OF INTESTINAL CARBOHYDRATE ABSORPTION (12) Functional quadriplegia Code(s): R53.2 - FUNCTIONAL QUADRIPLEGIA
[2018-08-30] MEDS: AMINO ACIDS 4.25%/D5W 1,000 ML IV SCH (15:56)
[2018-08-30] MEDS ORDERED: PT OWN MED DRAWER 7, Y5N ONE (16:50)
[2018-08-30] MEDS ORDERED: INSULIN (NOVOLOG) ASPART 100 UNITS/ML 10ML VIAL ONE (21:07)
[2018-08-30] MEDS: MONTELUKAST NA 10 MG TABLET PO SCH (21:20)
[2018-08-31] MEDS: INSULIN SLIDING SCALE (NOVOLOG) 1 VIAL SQ SCH ×4 (05:58→22:20)
[2018-08-31] MEDS: ALBUTEROL SO4 2.5/IPRATROPIUM 0.5 INH SOL 3 ML VIAL.NEB. NEB SCH ×4 (07:48→20:36)
[2018-08-31] MEDS: HEPARIN NA (PORCINE) 5,000 UNITS/ML 1ML VIAL SQ SCH ×2 (11:30→22:14)
[2018-08-31] MEDS: predniSONE 5 MG/5 ML ORAL SOLN- UNIT-DOSE CUP PO SCH ×2 (11:30→22:13)
--- NOTE | 2018-08-31 14:07 | DS ---
Physical Examination Vital Signs: Vital Signs Temperature 98.7 F 08/31/18 05:00 Pulse Rate 90 08/31/18 05:00 Respiratory Rate 18 08/31/18 05:00 Blood Pressure 110/78 08/31/18 05:00 O2 Sat by Pulse Oximetry (%) 98 08/31/18 07:48 Findings/Remarks: found in bed; awake skin--face flushed; no hives or rashes eyes--midline; equal gaze heart--RR lungs--clear anteriorly abd--soft, Nt ext--contractures on all extrms; no edema neuro--unable to communicate or understand; unable to follow commands; unable to move; cognition greatly impaired Labs: CBC, BMP 08/28/18 05:55 08/30/18 06:30 Discharge Summary Reason For Visit: RESPIRATORY DISTRESS/SEPSIS/PNEUMONIA Current Active Problems Allergy to multiple antibiotics (Acute) Functional quadriplegia (Acute) Glucose intolerance (Acute) Pneumonia 2nd aspiration(Acute) Respiratory distress (Acute) feeding difficulties advanced dementia do not resciscitate status asthma Hospital Course: 88 YOF severely demented [facility] (who is cared for at home by 24x7 attendants ) BIBA for resp distress and dimnished oxygen sat; found to have Rt sided asp PNA; seen by ID and JOY OPERATOR; Tx'd with dual Abs, and given modified diet. Her breathing improved much, and improved clinically overall. Her appetite wavered, but did not aspirate any further. Her chemistry remained in NL range; though needed some potassium at the begining. Throughout her stay, she was never able to communicate or interact in any way with staff. The issue was that of future plan & managemnt (as she did not wish for artificial feeds in her adv directives ), but the options were limited because she was denied by [facility] (did not meet full criterea). The son was made to understand that w/o enteral feeds, she would be a risk for recurrent aspiration Condition: Improved - Instructions Diet, Activity, Other Instructions: --use THICK IT to all liquids; thicken to honey consistency but can try nectar- consistency if she does not accept the honey-consistency --puree meals as before; feed upright at all times; allow for proper swallowing before each spoon full --crush all meds in apple sauce --contiunue home oxygen as before; and use Nebulized treatments 2-3 times a day after meals Disposition: VNS/HOME HEALTH CARE - Home Medications Comprehensive Discharge Medication List: Ambulatory Orders Montelukast Na [Singulair -] 10 mg PO HS tablet 09/21/15 Sennosides [Senna -] 1 tab PO DAILY PRN 08/18/16 Calcium Carbonate/Vitamin D3 [Calcium 500 + Vit D Caplet] 1 each PO DAILY Ipratropium [place] 0.5 mg NEB TID 07/10/17 Zolpidem Tartrate [Ambien] 5 mg PO HS 07/10/17 Albuterol Sulfate Inhaler - [Ventolin Hfa Inhaler -] 2 inh PO Q4H PRN 08/20/18 Multivit-Mins/Iron/Folic/Lycop [Centrum Men's Tablet] 1 each PO DAILY 08/20/18 prednisone 10mg BID x 3 days; then 10mg Qd x 3 days then 1/2 tab (5mg ) Qd
[2018-08-31] MEDS: AMINO ACIDS 4.25%/D5W 1,000 ML IV SCH (18:11)
[2018-08-31] MEDS: MONTELUKAST NA 10 MG TABLET PO SCH (22:14)
[2018-08-31] MEDS ORDERED: PT OWN MED DRAWER 7, Y5N ONE (22:35)
[2018-09-01] MEDS: INSULIN SLIDING SCALE (NOVOLOG) 1 VIAL SQ SCH ×2 (05:37→15:40)
[2018-09-01] MEDS: ALBUTEROL SO4 2.5/IPRATROPIUM 0.5 INH SOL 3 ML VIAL.NEB. NEB SCH ×3 (07:25→15:44)
[2018-09-01] MEDS: predniSONE 5 MG/5 ML ORAL SOLN- UNIT-DOSE CUP PO SCH (09:49)
[2018-09-01 13:49] VITALS: BP 96/52; PULSE 103; TEMP 98.8
== END 2018-09-01 17:01 | disposition home health service (06) | DRG 177 ==
LOC: SUPCPDRO 21:33 → JER 21:33 → JERBED 22:27 → J7W 08-21 12:25
PROVIDERS: ADMIT Internal Medicine; ATTEND Internal Medicine
PROC: 5A09557 Assistance with Respiratory Ventilation, Greater than 96 Consecutive Hours, Continuous Positive Airway Pressure (ICD-10-PCS; principal; 2018-08-20)
DX: J69.0 Pneumonitis due to inhalation of food and vomit (principal); R53.2 Functional quadriplegia; J96.01 Acute respiratory failure with hypoxia; N39.0 Urinary tract infection, site not specified; E87.2 Acidosis; F03.90 Unspecified dementia, unspecified severity, without behavioral disturbance, psychotic disturbance, mood disturbance, and anxiety; J45.909 Unspecified asthma, uncomplicated; Z66 Do not resuscitate; E78.5 Hyperlipidemia, unspecified; K44.9 Diaphragmatic hernia without obstruction or gangrene; F41.8 Other specified anxiety disorders; R73.03 Prediabetes; M19.90 Unspecified osteoarthritis, unspecified site; D64.9 Anemia, unspecified; E87.6 Hypokalemia; D72.829 Elevated white blood cell count, unspecified; Z74.2 Need for assistance at home and no other household member able to render care; E74.39 Other disorders of intestinal carbohydrate absorption; Z88.1 Allergy status to other antibiotic agents; Z88.0 Allergy status to penicillin; Z74.09 Other reduced mobility
CPT/HCPCS: 36415; 71045-TC-FY; 74018-TC-FY; 80048; 80053; 81003; 82550; 82803; 82962; 83036; 83605; 83735; 83880; 84443; 84484; 85025; 85027; 85610; 85730; 87040; 87086; 87899; 93005; 93010; 94640; 94660; 99285-25; E0186; J0131; J1644; J7030

== ENCOUNTER 2018-10-05 12:12 | Emergency (ER) | payer OTHER ==
[2018-10-05 12:57] VITALS: BP 113/65; PULSE 92; TEMP 98.5; BMI 31.2
--- NOTE | 2018-10-05 13:05 | PDOC ---
History of Present Illness - General Chief Complaint: Shortness of Breath Stated Complaint: DIFFICULTY BREATHING Time Seen by Provider: 10/05/18 13:04 - History of Present Illness Initial Comments: 10/05/18 13:04 Ms. Merchant is an 88 yo female w/ pmh of HTN, DM, Dementia, and Asthma, recently admitted 08/20-08/30 for R sided aspiration pneumonia (seen by ID and IT RISK AND ASSURANCE SENIOR MANAGER , Tx'd w/ ABX and modified diet, did not wish for artificial feeds in advanced directives and computer field technician made her aware she is at risk for recurrent aspiration given this) who presents for evaluation of respiratory distress. Ms. Merchant is non-verbal at baseline. DNR. Past History - Past Medical History Allergies/Adverse Reactions: Allergies Allergy/AdvReac Type Severity Reaction Status Date / Time ceftriaxone Allergy Intermediate Rash Verified 10/05/18 12:57 Penicillins Allergy Intermediate Rash Verified 10/05/18 12:57 Home Medications: Ambulatory Orders Montelukast Na [Singulair -] 10 mg PO HS tablet 09/21/15 Sennosides [Senna -] 1 tab PO DAILY PRN 08/18/16 Calcium Carbonate/Vitamin D3 [Calcium 500 + Vit D Caplet] 1 each PO DAILY Ipratropium [place] 0.5 mg NEB TID 07/10/17 Zolpidem Tartrate [Ambien] 5 mg PO HS 07/10/17 Albuterol Sulfate Inhaler - [Ventolin HFA Inhaler -] 2 inh PO Q4H PRN 08/20/18 Multivit-Mins/Iron/Folic/Lycop [Centrum Men's Tablet] 1 each PO DAILY 08/20/18 Prednisone 10 mg PO BID #30 tablet 08/31/18 Anemia: Yes Asthma: Yes Cancer: No CVA: Yes COPD: No CHF: No Dementia: Yes Diabetes: Yes Disorders: No HTN: Yes Hypercholesterolemia: No Liver Disease: No Seizures: No Thyroid Disease: No - Surgical History Appendectomy: No Cholecystectomy: No Orthopedic Surgery: No - Immunization History Td Vaccination: Yes TDAP Vaccination: Yes Immunization Up to Date: Yes - Suicide/Smoking/Psychosocial Hx Smoking Status: No Smoking History: Never smoked Have you smoked in the past 12 months: No Number of Cigarettes Smoked Daily: 0 Information on smoking cessation initiated: No Hx Alcohol Use: No Drug/Substance Use Hx: No Substance Use Type: None Hx Substance Use Treatment: No Review of Systems - Review of Systems Comments:: 10/05/18 13:05 Unable to obtain further. *Physical Exam - Vital Signs Last Vital Signs Temp Pulse Resp BP Pulse Ox 98.5 F 92 H 16 113/65 100 10/05/18 12:12 10/05/18 12:12 10/05/18 12:12 10/05/18 12:12 10/05/18 12:12 - Physical Exam Comments: 10/05/18 13:05 GENERAL: +Awake and oriented to baseline, audibly gurgling at baseline HEAD: No signs of trauma, normocephalic, atraumatic EYES: PERRLA, EOMI, sclera anicteric, conjunctiva clear ENT: Auricles normal inspection, nares patent, oropharynx clear without exudates. Moist mucosa NECK: Normal ROM, supple, no lymphadenopathy, JVD, or masses LUNGS: +Diffuse crackles appreciated throughout lung [place] HEART: Regular rate and rhythm, normal S1 and S2, no murmurs, rubs or gallops, peripheral pulses normal and equal bilaterally. ABDOMEN: Soft, nontender, normoactive bowel sounds. No guarding, no rebound. No masses EXTREMITIES: Normal inspection, Normal range of motion, no edema. No clubbing or cyanosis. NEUROLOGICAL: +Unable to assess further SKIN: Warm, Dry, normal turgor, no rashes or lesions noted. ED Treatment Course - LABORATORY CBC & Chemistry Diagram: 10/05/18 13:38 10/05/18 13:38 Medical Decision Making - Medical Decision Making 10/05/18 13:42 Ms. Merchant is an 88 yo female w/ pmh as described who presents for evaluation of symptoms concerning for pulmonary process vs. infection. Patient will be evaluated with sepsis workup for possible pneumonia. Of note, patient advanced directives specify no IV fluids or enteral feedings. 10/05/18 15:26 Patient labs grossly wnl. CXR negative for acute changes. Discussed patient with son who reports new caregiver today became concerned when she saw her and called immediately for EMS. Patient is at her baseline per son. Given patient's advanced directives and lack of acute process to treat, decision made to return patient home for further outpatient evaluation. Son agrees with this decision and will set up home health aide. Discharging to home. Laboratory Results - last 24 hr 10/05/18 10/05/18 10/05/18 13:38 13:38 13:38 WBC 13.0 H RBC 3.67 Hgb 10.4 L Hct 32.3 L MCV 88.0 MCH 28.3 MCHC 32.2 RDW 16.0 H Plt Count 311 D MPV 9.1 Absolute Neuts (auto) 9.9 H Neutrophils % 76.4 Lymphocytes % 15.8 D Monocytes % 6.5 Eosinophils % 0.7 D Basophils % 0.6 D Nucleated RBC % 0 PT with INR 12.50 INR 1.06 PTT (Actin FS) 31.0 Sodium 141 Potassium 4.1 Chloride 104 Carbon Dioxide 31 Anion Gap 5 L BUN 13.4 Creatinine 0.4 L Est GFR (CKD-EPI)AfAm 108.54 Est GFR (CKD-EPI)NonAf 93.65 Random Glucose 124 H Lactic Acid Calcium 8.8 Total Bilirubin 0.2 AST 12 L ALT 17 Alkaline Phosphatase 71 Troponin I Total Protein 6.6 Albumin 2.8 L 10/05/18 10/05/18 13:38 13:38 WBC RBC Hgb Hct MCV MCH MCHC RDW Plt Count MPV Absolute Neuts (auto) Neutrophils % Lymphocytes % Monocytes % Eosinophils % Basophils % Nucleated RBC % PT with INR INR PTT (Actin FS) Sodium Potassium Chloride Carbon Dioxide Anion Gap BUN Creatinine Est GFR (CKD-EPI)AfAm Est GFR (CKD-EPI)NonAf Random Glucose Lactic Acid 1.7 Calcium Total Bilirubin AST ALT Alkaline Phosphatase Troponin I 0.03 Total Protein Albumin *DC/Admit/Observation/Transfer Diagnosis at time of Disposition: Pulmonary congestion - Discharge Dispostion Disposition: HOME - Referrals - Patient Instructions Printed Discharge Instructions: DI for Aspiration Pneumonia Additional Instructions: Ms. Merchant was evaluated today in the ER and found to be at her baseline. We performed laboratory and X-ray evaluation with no emergent findings. We believe she is safe for discharge home. Please follow-up next week with primary care provider for further evaluation. Return to ER if any change in status, fever, chills, or other concerning symptoms. - Post Discharge Activity
[2018-10-05 13:51] LABS: BASO % 0.6 % (0-2.0); EOS % 0.7 % (0-4.5); HEMATOCRIT 32.3 % (32.4-45.2); HEMOGLOBIN 10.4 GM/dL (10.7-15.3); LYMPH % 15.8 % (8-40); MCH 28.3 pg (25.7-33.7); MCHC 32.2 g/dl (32.0-36.0); MEAN PLT VOLUME 9.1 fl (7.5-11.1); MONO % 6.5 % (3.8-10.2); NEUT % 76.4 % (42.8-82.8); PLATELET COUNT 311 K/MM3 (134-434); RBC 3.67 M/mm3 (3.60-5.2)
[2018-10-05 14:05] LABS: INR 1.06 (0.83-1.09); PROTHROMBIN TIME (PATIENT) 12.5 SEC (9.7-13.0)
[2018-10-05 14:22] LABS: ALBUMIN 2.8 g/dl (3.4-5.0); BILIRUBIN,TOTAL 0.2 mg/dL (0.2-1); BLOOD UREA NITROGEN 13.4 mg/dL (7-18); CALCIUM 8.8 mg/dL (8.5-10.1); CREATININE 0.4 mg/dL (0.55-1.3); POTASSIUM 4.1 mmol/L (3.5-5.1); TOT PROT 6.6 g/dl (6.4-8.2)
--- NOTE | 2018-10-05 15:03 | PDOC ---
Documentation entered by Casey Paiz SCRIBE, acting as scribe for Janette Bai MD. Janette Bai MD: This documentation has been prepared by the Chencho almendarez Aiswarya, SCRIBE, under my direction and personally reviewed by me in its entirety. I confirm that the documentation accurately reflects all work, treatment, procedures, and medical decision making performed by me. Attending Attestation - Resident Resident Name: Dov Mendez - ED Attending Attestation I have performed the following: I have examined & evaluated the patient, The case was reviewed & discussed with the resident, I agree w/resident's findings & plan, Exceptions are as noted - HPI HPI: 10/05/18 14:06 Ms. lion is an 88 yo severely demented, functionally quadraplegic (cared for at home by 24x7 attendants, DNR/DNI/DNH,denied by [facility]) brought to the ER due to resp distress and diminished oxygen saturation. Pt s/p recent admission for Right sided Aspiration PNA Upon discharged pt started on a modified diet (as she did not wish for artificial feeds in her advanced directives) - Physicial Exam PE: 10/05/18 14:27 Pt is awake, eyes open Not verbally responsive EOMI, clear conjunctiva RRR Rhonchi/Crackles Right lung > Left No abd tenderness contractures upper extremities and feet - Medical Decision Making 10/05/18 14:28 88 yo F advanced dementia presenting with respiratory distress 10/05/18 14:28 10/05/18 14:57 Twelve-lead EKG was performed and reviewed by me. There is normal sinus rhythm with a normal rate. The axis is normal. The intervals are normal. There are no ST or T wave abnormalities. Impression: Normal twelve-lead EKG 10/05/18 15:02 Laboratory Tests 08/28/18 08/29/18 10/05/18 05:55 06:30 13:38 WBC 9.6 13.0 H Hgb 11.3 10.4 L Hct 33.5 32.3 L Plt Count 211 311 D Sodium Potassium Chloride Carbon Dioxide BUN 26 H Creatinine 0.5 L Est GFR (CKD-EPI)AfAm Lactic Acid AST ALT 10/05/18 10/05/18 13:38 13:38 WBC Hgb Hct Plt Count Sodium 141 Potassium 4.1 Chloride 104 Carbon Dioxide 31 BUN 13.4 Creatinine 0.4 L Est GFR (CKD-EPI)AfAm 108.54 Lactic Acid 1.7 AST 12 L ALT 17 10/05/18 16:58 Pt DNR/DNI/DNH Molst states, no IVF or abx unless for directed treatment call placed to pt son He states he believes the BRAKE SPECIALIST reflexively called EMS He believes pt is at her baseline Pt can be returned home once BRAKE SPECIALIST is there Will discharge 10/06/18 08:54 Revealed call re: pt blood culture Call placed to patient's son Voicemail left Awaiting call back 10/06/18 11:24 Pt son called me back he would prefer NOT to send her back to the hospital He has a service that visits patient and draws labs at her home He is getting me the number for me to give them a call
--- NOTE | 2018-10-06 13:45 | EKG ---
Test Reason : Blood Pressure : / mmHG Vent. Rate : 085 BPM Atrial Rate : 085 BPM P-R Int : 156 ms QRS Dur : 072 ms QT Int : 354 ms P-R-T Axes : 025 041 035 degrees QTc Int : 421 ms POOR DATA QUALITY, INTERPRETATION MAY BE ADVERSELY AFFECTED NORMAL SINUS RHYTHM NORMAL ECG WHEN COMPARED WITH ECG OF 20-AUG-2018 22:08, NO SIGNIFICANT CHANGE WAS FOUND Confirmed by TAMIKA WHITTAKER MD ([id number]) on 10/06/2018 1:44:54 PM Referred By: Confirmed By:TAMIKA WHITTAKER MD
--- NOTE | 2018-10-08 16:26 | PDOC ---
Patient Follow-up (Call Back) - Post ED Follow - Up Disposition at time of original discharge: HOME Reason for Call Back: Abnwl. Microbiology ((+) blood cultures x2 for MRSA. Spoke with Pts son (dextrine mixer) states he will bring her back to the ER for evaluation)
== END 2018-10-05 19:00 | disposition home or self-care (01) ==
LOC: JER 12:12
DX: R09.89 Other specified symptoms and signs involving the circulatory and respiratory systems (principal); I10 Essential (primary) hypertension; E11.9 Type 2 diabetes mellitus without complications; D64.9 Anemia, unspecified; J45.909 Unspecified asthma, uncomplicated; F03.90 Unspecified dementia, unspecified severity, without behavioral disturbance, psychotic disturbance, mood disturbance, and anxiety; Z87.09 Personal history of other diseases of the respiratory system; Z88.0 Allergy status to penicillin; Z88.1 Allergy status to other antibiotic agents
CPT/HCPCS: 36415; 71045-TC-FY; 80053; 83605; 84484; 85025; 85610; 85730; 87040; 87186; 93005; 93010; 99282-25

== ENCOUNTER 2018-10-08 17:13 | Emergency (ER) | payer OTHER ==
[2018-10-08 17:45] VITALS: TEMP 99.6; BMI 21.2
--- NOTE | 2018-10-08 18:14 | PDOC ---
History of Present Illness - General Chief Complaint: Revisit, Lab Variance Stated Complaint: call back positive blood culture Time Seen by Provider: 10/08/18 17:36 History Source: EMS, Family (Son at bedside.), Old Records Exam Limitations: Clinical Condition, Dementia - History of Present Illness Initial Comments: HPI: 88 y/o female presenting to [facility] ER after call back for positive blood cultures , which were drawn on 05 October 2018. Single anaerobic culture grew MRSA. Single aerobic culture grew gram positive cocci in clusters, but the bacteria has not been speciated. Pt interview is technically limited as pt is nonverbal and does not follow commands at baseline. Pts MOLST on file was completed by the pts son (also HPOA) using her living will as a guide. It indicates she does not want IV fluids or extraordinary measures. Antibiotics are to be given on a case by case basis. Medical Hx: - HTN - DM - Advanced Dementia (nonverbal, does not follow commands) - Asthma - Recently admitted 08/20-08/30 for R sided aspiration pneumonia Review of Systems: Unable to obtain secondary to pts baseline condition. Physical Examination: Constitutional: Nontoxic elderly adult female in no acute distress or obvious discomfort. Found semi-fowlers on hospital bed. Alert with eyes open. Head: Normocephalic. No obvious external signs of trauma. Cardiovascular / Chest: Regular rate and regular rhythm. No murmur, rubs, clicks , or gallops. Peripheral pulses: radial pulses full. Respiratory: Breathing unlabored. Equal chest rise and fall. Clear to auscultation bilaterally. No stridor, no wheezing, no rhonchi. Gastrointestinal: abdomen is soft and non-distended. Neuro: Alert with eyes open. Did not follow commands or visually track. Skin: Warm and dry. MDM: *Reviewed vital signs, nursing notes, and prior visit documentation (if available). 88 y/o female presenting for call back of positive blood cultures. Afebrile with rectal measurement. Vitals unremarkable for hypotension or tachycardia. Normoxic on 3LPM via nasal cannula, chronically on oxygen at home. Physical exam as described above. Low suspicion for bacterial septicemia. Blood cultures are possibly contaminated. Expect a blood stream MRSA infection for three days would present with more significant clinical picture. Son arrived at bedside. Spent approx. 15 min discussing likelihood of contamination of cultures with likely clinical course. Also discussed concern for treatment options as violation of living will / MOLST form wishes. Ultimately, the son requested a repeat set of blood cultures be drawn and the pt be sent home. Declined admission to hospital and/or antibiotic course. Discussed the risks and benefits of this decision. Pt expressed verbal understanding. Blood cultures drawn and pt discharged home. Pts son left the facility prior to signing discharge paperwork. Call back requested placed. Villa Oliva M.D., PGY1 Emergency Medicine Resident Past History - Past Medical History Allergies/Adverse Reactions: Allergies Allergy/AdvReac Type Severity Reaction Status Date / Time ceftriaxone Allergy Intermediate Rash Verified 10/05/18 12:57 Penicillins Allergy Intermediate Rash Verified 10/05/18 12:57 Home Medications: Ambulatory Orders Montelukast Na [Singulair -] 10 mg PO HS tablet 09/21/15 Sennosides [Senna -] 1 tab PO DAILY PRN 08/18/16 Calcium Carbonate/Vitamin D3 [Calcium 500 + Vit D Caplet] 1 each PO DAILY Ipratropium [place] 0.5 mg NEB TID 07/10/17 Zolpidem Tartrate [Ambien] 5 mg PO HS 07/10/17 Albuterol Sulfate Inhaler - [Ventolin HFA Inhaler -] 2 inh PO Q4H PRN 08/20/18 Multivit-Mins/Iron/Folic/Lycop [Centrum Men's Tablet] 1 each PO DAILY 08/20/18 Prednisone 10 mg PO BID #30 tablet 08/31/18 Anemia: Yes Asthma: Yes Cancer: No CVA: Yes COPD: No CHF: No Dementia: Yes Diabetes: Yes Disorders: No HTN: Yes Hypercholesterolemia: No Liver Disease: No Seizures: No Thyroid Disease: No - Surgical History Appendectomy: No Cholecystectomy: No Orthopedic Surgery: No - Immunization History Td Vaccination: Yes TDAP Vaccination: Yes Immunization Up to Date: Yes - Suicide/Smoking/Psychosocial Hx Smoking Status: No Smoking History: Never smoked Have you smoked in the past 12 months: No Number of Cigarettes Smoked Daily: 0 Hx Alcohol Use: No Drug/Substance Use Hx: No Substance Use Type: None Hx Substance Use Treatment: No *Physical Exam - Vital Signs Last Vital Signs Temp Pulse Resp BP Pulse Ox 99.6 F 94 H 18 129/74 95 10/08/18 17:14 10/08/18 17:14 10/08/18 17:14 10/08/18 17:14 10/08/18 17:49 *DC/Admit/Observation/Transfer Diagnosis at time of Disposition: Blood bacterial culture positive - Discharge Dispostion Disposition: HOME Condition at time of disposition: Good Decision to Admit order: No - Referrals Schedule a call back: Blood culture call back - Patient Instructions Additional Instructions: You were seen today for positive blood cultures drawn three days ago. You do not likely have a bacterial blood stream infection. Your son requested repeat blood cultures be drawn and you to be discharged home. The hospital will call if the blood cultures are positive. The final result will take approx. 5 days. If you have not heard from the hospital, you can call medical records (number included in this packet) for the results. Go to the nearest emergency department if your condition worsens or you feel like you need additional emergency evaluation. Print Language: TAJIK - Post Discharge Activity
--- NOTE | 2018-10-08 18:47 | PDOC ---
Documentation entered by Nola Canela SCRIBE, acting as scribe for Rosalie Rueda MD. Rosalie Rueda MD: This documentation has been prepared by the Hilton almendarez Sammi, SCRIBE, under my direction and personally reviewed by me in its entirety. I confirm that the documentation accurately reflects all work, treatment, procedures, and medical decision making performed by me. Attending Attestation - Resident Resident Name: Villa Oliva - HPI HPI: 10/08/18 17:44 The patient is an 88 year old female, with a significant PMH of HTN, DM, Dementia, and Asthma, recently admitted 08/20-08/30 for R sided aspiration pneumonia DNR, DNI, who presents to the emergency department for evaluation of lab work taken on 10/05/18 where she presented for respiratory distress and septic workup. Allergies: ceftriaxone, penicillin - Physicial Exam PE: 10/08/18 18:14 GENERAL: Quadrapelegic. Non-verbal. HEENT: Normocephalic, atraumatic. PERRL, EOM intact. CARDIOVASCULAR: Normal S1, S2. Regular rate and rhythm. PULMONARY: Clear to auscultation bilaterally. ABDOMEN: Soft, non-distended, non-tender. EXTREMITIES: Contractors of all limbs SKIN: Warm, dry. No rash NEUROLOGICAL: Functional Quadrapelegic. Non-verbal. - Medical Decision Making 10/08/18 17:54 88 yo female is DNR,DNI,DNH from [facility] because the [facility] received a call from [facility] stating that the blood cultures's were positive for MRSA -Dr Oliva is speaking to the Health Care Proxy about their expectations and it was decided to repeat the blood cultures and he wants to take his mother home where she has a home appliance technician 08/11. Pt is afebrile adn at her baseline according to the son 10/08/18 18:19 pt is on hospice/ d/c home
[2018-10-08 18:56] VITALS: BP 123/78; PULSE 85
== END 2018-10-08 20:24 | disposition home or self-care (01) ==
LOC: JER 17:13
DX: R78.81 Bacteremia (principal); I10 Essential (primary) hypertension; E11.9 Type 2 diabetes mellitus without complications; F03.90 Unspecified dementia, unspecified severity, without behavioral disturbance, psychotic disturbance, mood disturbance, and anxiety; J45.909 Unspecified asthma, uncomplicated; Z87.09 Personal history of other diseases of the respiratory system
CPT/HCPCS: 87040; 99283-25

== ENCOUNTER 2020-12-07 13:26 | Inpatient (IN) | payer OTHER ==
[2020-12-07] MEDS ORDERED: LACTATED RINGERS SOLUTION 1,000 ML IV STA (13:36)
[2020-12-07 14:05] LABS: HEMATOCRIT 35.4 % (32.4-45.2); HEMOGLOBIN 10.9 GM/dL (10.7-15.3); MCH 23.8 pg (25.7-33.7); MCHC 30.8 g/dl (32.0-36.0); MEAN CELL VOLUME 77.1 fl (80-96); PLATELET COUNT 384 10^3/uL (134-434); RBC 4.59 M/mm3 (3.60-5.2); RDW 18.7 % (11.6-15.6); WHITE BLOOD COUNT 21.9 K/mm3 (4.0-10.0)
[2020-12-07] MEDS ORDERED: ACETAMINOPHEN 1000 MG/100 ML VIAL (NON FORMULARY) IVPB ONE (14:10)
[2020-12-07 14:16] LABS: INR 1.1 (0.83-1.09); PROTHROMBIN TIME (PATIENT) 13.3 SEC (9.7-13.0)
[2020-12-07 14:19] LABS: ACTIVATED PTT 24.4 SECONDS (25.2-36.5)
[2020-12-07 14:24] LABS: CHLORIDE 118 mmol/L (98-107); SODIUM 144 mmol/L (136-145)
[2020-12-07 14:26] LABS: CALCIUM 8.6 mg/dL (8.5-10.1)
[2020-12-07 14:27] LABS: ALBUMIN 2.2 g/dl (3.4-5.0); BLOOD UREA NITROGEN 54.9 mg/dL (7-18); CO2 25 mmol/L (21-32); GLUCOSE,RANDOM 124 mg/dL (74-106)
[2020-12-07] MEDS ORDERED: CLINDAMYCIN 600MG PREMIX IVPB 600 MG/50 ML BAG IVPB ONE ×2 (14:27→14:43)
[2020-12-07] MEDS ORDERED: VANCOMYCIN 1 GM in D5W (PRE-DOCKED) 1,000 MG/250 ML IVPB ONE (14:27)
[2020-12-07 14:32] LABS: TOT PROT 8.4 g/dl (6.4-8.2)
[2020-12-07 14:33] LABS: ALK PHOS 73 U/L (45-117)
[2020-12-07 14:39] VITALS: BMI 18.6
[2020-12-07 14:40] LABS: ANISOCYTOSIS 0; HELMET CELLS 0; HOWELL-JOLLY BODIES 0; MACROCYTOSIS 0; OVALOCYTE 0; PLATELET ESTIMATE NORMAL; ROULEAU 0; SICKELED CELLS 0; TARGET CELLS 0; TEAR DROP CELLS 0; TOXIC GRANULATION 0
[2020-12-07] MEDS ORDERED: VANCOMYCIN 1 GRAM (PRE-DOCKED) 1,000 MG/250 ML BAG IVPB ONE (14:42)
[2020-12-07] MEDS ORDERED: ACETAMINOPHEN INJECTION 100 ML IVPB ONE (14:42)
[2020-12-07] MEDS ORDERED: ALBUTEROL SO4 2.5/IPRATROPIUM 0.5 INH SOL 3 ML VIAL.NEB. NEB ONE (14:42)
[2020-12-07] MEDS: ALBUTEROL SO4 2.5/IPRATROPIUM 0.5 INH SOL 3 ML VIAL.NEB. NEB SCH ×3 (14:50→15:20)
[2020-12-07 14:54] LABS: LACTIC ACID 4.3 mmol/L (0.4-2.0)
[2020-12-07 14:58] LABS: ARTERIAL BLD GAS O2 SATURATION 99.7 % (95-98); ARTERIAL BLOOD GAS BASE EXCESS 0 mmol/L (-2-2); ARTERIAL BLOOD GAS PO2 299.3 mmHg (80-100); ARTERIAL BLOOD GAS pH 7.427 (7.350-7.450)
[2020-12-07] MEDS ORDERED: LACTATED RINGERS SOLUTION 1000 ML INFUS.BAG IV ONE (15:59)
[2020-12-07 16:18] LABS: CALCIUM 8.1 mg/dL (8.5-10.1)
[2020-12-07 16:19] LABS: ALBUMIN 2.1 g/dl (3.4-5.0); BLOOD UREA NITROGEN 54.6 mg/dL (7-18)
[2020-12-07 16:22] LABS: CREATININE 0.9 mg/dL (0.55-1.3)
[2020-12-07 16:23] LABS: BILIRUBIN,TOTAL 0.3 mg/dL (0.2-1); TOT PROT 6.2 g/dl (6.4-8.2)
[2020-12-07] MEDS ORDERED: SODIUM CHLORIDE 0.45% 1,000 ML IV SCH (16:45)
[2020-12-07] MEDS ORDERED: LACTATED RINGERS SOLUTION 1,000 ML/1,000 ML INFUS.BAG IV SCH (22:15)
[2020-12-07] MEDS ORDERED: methylPREDNISolone NA SUCC 125 MG/2 ML VIAL IVPB STA (22:17)
[2020-12-07] MEDS ORDERED: methylPREDNISolone NA SUCC 125 MG/2 ML VIAL ONE (23:03)
[2020-12-07 23:38] LABS: EPI CELLS 34 /uL (0-25.1); HYALINE CASTS 8 /uL (0-3.1); PH,URINE 8.5 (5.0-8.0); URINE APPEARANCE CLOUDY; URINE BACTERIA 5338 /uL (0-1359); URINE BILIRUBIN NEGATIVE (NEGATIVE); URINE COLOR DK YELLOW; URINE GLUCOSE (UA) NEGATIVE (NEGATIVE); URINE KETONE TRACE (NEGATIVE); URINE LEUK ESTERASE 2+ (NEGATIVE); URINE NITRITE POSITIVE (NEGATIVE); URINE PROTEIN 2+ (NEGATIVE); URINE RBC 29 /uL (0-23.9); URINE UROBILINOGEN 0.2 mg/dL (0.2-1.0); URINE WBC 1128 /uL (0-25.8)
[2020-12-08 00:34] LABS: LACTIC ACID 3.3 mmol/L (0.4-2.0)
[2020-12-08] MEDS ORDERED: CLINDAMYCIN 600MG PREMIX IVPB 600 MG/50 ML BAG IVPB ONE ×3 (02:16→18:58)
[2020-12-08] MEDS: CLINDAMYCIN 600MG PREMIX IVPB 600 MG/50 ML BAG IVPB SCH ×3 (02:18→19:00)
[2020-12-08 08:19] LABS: HEMATOCRIT 28.4 % (32.4-45.2); HEMOGLOBIN 8.9 GM/dL (10.7-15.3); MCH 23.9 pg (25.7-33.7); MCHC 31.3 g/dl (32.0-36.0); MEAN CELL VOLUME 76.4 fl (80-96); MEAN PLT VOLUME 8.6 fl (7.5-11.1); PLATELET COUNT 238 10^3/uL (134-434); RBC 3.72 M/mm3 (3.60-5.2); WHITE BLOOD COUNT 11.2 K/mm3 (4.0-10.0)
[2020-12-08 08:44] LABS: CALCIUM 8.1 mg/dL (8.5-10.1)
[2020-12-08 08:48] LABS: CREATININE 0.6 mg/dL (0.55-1.3)
[2020-12-08] MEDS: ALBUTEROL SO4 0.083% IH SOL 2.5 MG/3 ML VIAL.NEB. NEB SCH ×3 (09:38→20:10)
[2020-12-08] MEDS ORDERED: VANCOMYCIN 1,000 MG in DEXTROSE 5%-WATER - 250 ML IVPB ONE (09:48)
[2020-12-08] MEDS ORDERED: VANCOMYCIN 1 GRAM (PRE-DOCKED) 1,000 MG/250 ML BAG IVPB ONE (09:57)
[2020-12-08] MEDS ORDERED: ENOXAPARIN NA (PORCINE) 30 MG/0.3 ML DISP.SYRIN SQ ONE (11:00)
[2020-12-08] MEDS ORDERED: methylPREDNISolone NA SUCC 40 MG/1 ML VIAL ONE (11:00)
[2020-12-08] MEDS: ENOXAPARIN NA (PORCINE) 30 MG/0.3 ML DISP.SYRIN SQ SCH (11:16)
[2020-12-08] MEDS: methylPREDNISolone NA SUCC 40 MG/1 ML VIAL IVPB SCH ×2 (11:16→23:48)
[2020-12-08] MEDS ORDERED: methylPREDNISolone NA SUCC 125 MG/2 ML VIAL IVPUSH ONE (17:37)
[2020-12-08] MEDS ORDERED: SODIUM CHLORIDE 250 ML IV ONE (21:00)
[2020-12-08] MEDS ORDERED: SODIUM CHLORIDE 1,000 ML IV SCH (21:30)
[2020-12-09] MEDS ORDERED: FUROSEMIDE 40 MG/4 ML INJECTABLE VIAL IVPUSH ONE (01:45)
[2020-12-09] MEDS: CLINDAMYCIN 600MG PREMIX IVPB 600 MG/50 ML BAG IVPB SCH ×2 (02:32→09:47)
[2020-12-09] MEDS: ALBUTEROL SO4 0.083% IH SOL 2.5 MG/3 ML VIAL.NEB. NEB SCH ×3 (08:30→20:41)
[2020-12-09] MEDS: ENOXAPARIN NA (PORCINE) 30 MG/0.3 ML DISP.SYRIN SQ SCH (09:48)
[2020-12-09 11:13] LABS: HEMATOCRIT 28.1 % (32.4-45.2); HEMOGLOBIN 8.8 GM/dL (10.7-15.3); MCH 23.9 pg (25.7-33.7); MCHC 31.1 g/dl (32.0-36.0); PLATELET COUNT 218 10^3/uL (134-434); RBC 3.66 M/mm3 (3.60-5.2); RDW 18.1 % (11.6-15.6); WHITE BLOOD COUNT 12.4 K/mm3 (4.0-10.0)
[2020-12-09 11:37] LABS: BLOOD UREA NITROGEN 30.6 mg/dL (7-18); CALCIUM 8.3 mg/dL (8.5-10.1)
[2020-12-09 11:40] LABS: CREATININE 0.4 mg/dL (0.55-1.3)
[2020-12-09] MEDS: methylPREDNISolone NA SUCC 40 MG/1 ML VIAL IVPB SCH ×2 (12:00→21:02)
[2020-12-09] MEDS ORDERED: DEXTROSE 5%-0.45% SALINE 1,000 ML IV SCH (12:00)
[2020-12-09] MEDS ORDERED: SILVER SULFADIAZINE 1% TOP CREAM 50 GM JAR TP SCH (12:00)
[2020-12-09] MEDS ORDERED: AZTREONAM 1 GM VIAL (RESTRICTED TO ID) ONE ×2 (13:13→23:17)
[2020-12-09] MEDS ORDERED: DEXTROSE 5%-WATER - 50 ML IVPB ONE ×2 (13:13→23:17)
[2020-12-09] MEDS: AZTREONAM 1 GM in DEXTROSE 5%-WATER - 50 ML IVPB SCH ×2 (13:43→23:59)
[2020-12-09] MEDS: VANCOMYCIN 1 GRAM (PRE-DOCKED) 1,000 MG/250 ML BAG IVPB SCH (14:49)
[2020-12-10] MEDS: VANCOMYCIN 1 GRAM (PRE-DOCKED) 1,000 MG/250 ML BAG IVPB SCH ×2 (00:39→13:41)
[2020-12-10] MEDS: ALBUTEROL SO4 0.083% IH SOL 2.5 MG/3 ML VIAL.NEB. NEB SCH ×3 (08:00→20:37)
[2020-12-10] MEDS: ENOXAPARIN NA (PORCINE) 30 MG/0.3 ML DISP.SYRIN SQ SCH (10:48)
[2020-12-10] MEDS: SILVER SULFADIAZINE 1% TOP CREAM 50 GM JAR TP SCH (10:48)
[2020-12-10] MEDS: methylPREDNISolone NA SUCC 40 MG/1 ML VIAL IVPB SCH ×2 (10:49→21:02)
[2020-12-10] MEDS ORDERED: DEXTROSE 5%-WATER - 50 ML IVPB ONE (12:30)
[2020-12-10] MEDS ORDERED: AZTREONAM 1 GM VIAL (RESTRICTED TO ID) ONE (12:30)
[2020-12-10] MEDS: AZTREONAM 1 GM in DEXTROSE 5%-WATER - 50 ML IVPB SCH (12:40)
[2020-12-11] MEDS ORDERED: AZTREONAM 1 GM VIAL (RESTRICTED TO ID) ONE ×3 (00:16→23:50)
[2020-12-11] MEDS ORDERED: DEXTROSE 5%-WATER - 50 ML IVPB ONE ×3 (00:16→23:50)
[2020-12-11] MEDS: AZTREONAM 1 GM in DEXTROSE 5%-WATER - 50 ML IVPB SCH ×3 (00:26→23:53)
[2020-12-11] MEDS: VANCOMYCIN 1 GRAM (PRE-DOCKED) 1,000 MG/250 ML BAG IVPB SCH ×2 (01:11→15:09)
[2020-12-11] MEDS: ALBUTEROL SO4 0.083% IH SOL 2.5 MG/3 ML VIAL.NEB. NEB SCH ×3 (07:36→21:00)
[2020-12-11] MEDS: ENOXAPARIN NA (PORCINE) 30 MG/0.3 ML DISP.SYRIN SQ SCH (10:57)
[2020-12-11] MEDS: methylPREDNISolone NA SUCC 40 MG/1 ML VIAL IVPB SCH ×2 (10:57→20:59)
[2020-12-11] MEDS: SILVER SULFADIAZINE 1% TOP CREAM 50 GM JAR TP SCH (15:16)
[2020-12-11] MEDS: COLLAGENASE CLOSTRIDIUM HIST. 30 GRAMS TUBE TP SCH (18:51)
[2020-12-11] MEDS: DEXTROSE 5%-0.45% SALINE 1,000 ML IV SCH (18:51)
[2020-12-12] MEDS: VANCOMYCIN 1 GRAM (PRE-DOCKED) 1,000 MG/250 ML BAG IVPB SCH ×2 (01:13→17:27)
[2020-12-12] MEDS: ALBUTEROL SO4 0.083% IH SOL 2.5 MG/3 ML VIAL.NEB. NEB SCH ×3 (08:00→19:43)
[2020-12-12] MEDS: methylPREDNISolone NA SUCC 40 MG/1 ML VIAL IVPB SCH ×2 (10:39→21:05)
[2020-12-12] MEDS: ENOXAPARIN NA (PORCINE) 30 MG/0.3 ML DISP.SYRIN SQ SCH (10:40)
[2020-12-12] MEDS: COLLAGENASE CLOSTRIDIUM HIST. 30 GRAMS TUBE TP SCH (10:40)
[2020-12-12] MEDS: MINERAL OIL/PET HY-PHL TOPICAL OINTMENT 454 GM JAR TP SCH (10:47)
[2020-12-12] MEDS ORDERED: DEXTROSE 5%-WATER - 50 ML IVPB ONE (12:58)
[2020-12-12] MEDS ORDERED: AZTREONAM 1 GM VIAL (RESTRICTED TO ID) ONE (12:58)
[2020-12-12] MEDS: AZTREONAM 1 GM in DEXTROSE 5%-WATER - 50 ML IVPB SCH (13:19)
[2020-12-12 16:16] LABS: HEMATOCRIT 24.9 % (32.4-45.2); MCH 24.1 pg (25.7-33.7); MCHC 32.1 g/dl (32.0-36.0); MEAN PLT VOLUME 8.9 fl (7.5-11.1); PLATELET COUNT 152 10^3/uL (134-434); RBC 3.32 M/mm3 (3.60-5.2); RDW 18.6 % (11.6-15.6); WHITE BLOOD COUNT 10.7 K/mm3 (4.0-10.0)
[2020-12-12 16:32] LABS: BLOOD UREA NITROGEN 12.9 mg/dL (7-18); CALCIUM 7.8 mg/dL (8.5-10.1); CHLORIDE 111 mmol/L (98-107); CO2 27 mmol/L (21-32); GLUCOSE,RANDOM 156 mg/dL (74-106); SODIUM 144 mmol/L (136-145)
[2020-12-12 16:36] LABS: ANION GAP 6 MMOL/L (8-16); CREATININE 0.2 mg/dL (0.55-1.3)
[2020-12-12] MEDS ORDERED: PT OWN MED DRAWER 7, Y5N ONE (18:43)
[2020-12-12] MEDS: KCL 10 MEQ IVPB 10 MEQ/100 ML INFUS.BAG IVPB SCH ×2 (18:49→20:38)
[2020-12-12] MEDS: POTASSIUM CHLORIDE 10 MEQ in SODIUM CHLORIDE 0.45% 1,000 ML IVPB SCH ×2 (20:28→20:48)
[2020-12-12] MEDS: DEXTROSE 5%-0.45% SALINE 1,000 ML IV SCH (20:44)
[2020-12-13] MEDS ORDERED: AZTREONAM 1 GM VIAL (RESTRICTED TO ID) ONE ×3 (01:18→23:24)
[2020-12-13] MEDS ORDERED: DEXTROSE 5%-WATER - 50 ML IVPB ONE ×3 (01:18→23:24)
[2020-12-13] MEDS: AZTREONAM 1 GM in DEXTROSE 5%-WATER - 50 ML IVPB SCH ×2 (01:20→12:42)
[2020-12-13] MEDS: ALBUTEROL SO4 0.083% IH SOL 2.5 MG/3 ML VIAL.NEB. NEB SCH ×3 (08:47→20:20)
[2020-12-13 09:01] LABS: HEMATOCRIT 26.2 % (32.4-45.2); HEMOGLOBIN 8.5 GM/dL (10.7-15.3); MCH 24.4 pg (25.7-33.7); MCHC 32.5 g/dl (32.0-36.0); MEAN CELL VOLUME 74.9 fl (80-96); MEAN PLT VOLUME 9.3 fl (7.5-11.1); PLATELET COUNT 165 10^3/uL (134-434); RBC 3.51 M/mm3 (3.60-5.2); RDW 17.8 % (11.6-15.6)
[2020-12-13] MEDS: ENOXAPARIN NA (PORCINE) 30 MG/0.3 ML DISP.SYRIN SQ SCH (09:09)
[2020-12-13] MEDS: methylPREDNISolone NA SUCC 40 MG/1 ML VIAL IVPB SCH ×2 (09:09→21:11)
[2020-12-13] MEDS: MINERAL OIL/PET HY-PHL TOPICAL OINTMENT 454 GM JAR TP SCH (09:09)
[2020-12-13 09:22] LABS: BLOOD UREA NITROGEN 10.8 mg/dL (7-18); CALCIUM 7.8 mg/dL (8.5-10.1)
[2020-12-13 09:26] LABS: CREATININE 0.3 mg/dL (0.55-1.3)
[2020-12-13] MEDS: COLLAGENASE CLOSTRIDIUM HIST. 30 GRAMS TUBE TP SCH (12:41)
[2020-12-13] MEDS: KCL 10 MEQ IVPB 10 MEQ/100 ML INFUS.BAG IVPB SCH ×3 (12:41→15:44)
[2020-12-13] MEDS: D5-1/2NS+20 MEQ KCL - 20 MEQ/1,000 ML INFUS.BAG IV SCH ×2 (15:19→15:39)
[2020-12-14] MEDS: AZTREONAM 1 GM in DEXTROSE 5%-WATER - 50 ML IVPB SCH ×2 (00:01→13:49)
[2020-12-14] MEDS: D5-1/2NS+20 MEQ KCL - 20 MEQ/1,000 ML INFUS.BAG IV SCH ×2 (05:14→18:34)
[2020-12-14] MEDS: ALBUTEROL SO4 0.083% IH SOL 2.5 MG/3 ML VIAL.NEB. NEB SCH ×3 (07:55→20:00)
[2020-12-14] MEDS: methylPREDNISolone NA SUCC 40 MG/1 ML VIAL IVPB SCH ×2 (10:50→21:26)
[2020-12-14] MEDS: COLLAGENASE CLOSTRIDIUM HIST. 30 GRAMS TUBE TP SCH (10:50)
[2020-12-14] MEDS: ENOXAPARIN NA (PORCINE) 30 MG/0.3 ML DISP.SYRIN SQ SCH (10:50)
[2020-12-14] MEDS: MINERAL OIL/PET HY-PHL TOPICAL OINTMENT 454 GM JAR TP SCH (10:50)
[2020-12-14] MEDS ORDERED: AZTREONAM 1 GM VIAL (RESTRICTED TO ID) ONE (13:40)
[2020-12-14] MEDS ORDERED: DEXTROSE 5%-WATER - 50 ML IVPB ONE (13:40)
[2020-12-15] MEDS: AZTREONAM 1 GM in DEXTROSE 5%-WATER - 50 ML IVPB SCH ×2 (01:30→12:25)
[2020-12-15] MEDS ORDERED: AZTREONAM 1 GM VIAL (RESTRICTED TO ID) ONE ×3 (01:40→23:11)
[2020-12-15] MEDS ORDERED: DEXTROSE 5%-WATER - 50 ML IVPB ONE ×3 (01:40→23:11)
[2020-12-15] MEDS: D5-1/2NS+20 MEQ KCL - 20 MEQ/1,000 ML INFUS.BAG IV SCH ×3 (06:37→21:27)
[2020-12-15] MEDS: ALBUTEROL SO4 0.083% IH SOL 2.5 MG/3 ML VIAL.NEB. NEB SCH ×2 (08:50→14:45)
[2020-12-15] MEDS: MINERAL OIL/PET HY-PHL TOPICAL OINTMENT 454 GM JAR TP SCH (11:16)
[2020-12-15] MEDS: COLLAGENASE CLOSTRIDIUM HIST. 30 GRAMS TUBE TP SCH (11:16)
[2020-12-15] MEDS: methylPREDNISolone NA SUCC 40 MG/1 ML VIAL IVPB SCH ×2 (11:17→21:29)
[2020-12-15] MEDS: VANCOMYCIN 1 GRAM (PRE-DOCKED) 1,000 MG/250 ML BAG IVPB SCH (15:14)
[2020-12-16] MEDS: AZTREONAM 1 GM in DEXTROSE 5%-WATER - 50 ML IVPB SCH ×2 (00:19→14:19)
[2020-12-16] MEDS: ALBUTEROL SO4 0.083% IH SOL 2.5 MG/3 ML VIAL.NEB. NEB SCH ×3 (07:45→20:28)
[2020-12-16] MEDS: COLLAGENASE CLOSTRIDIUM HIST. 30 GRAMS TUBE TP SCH (10:09)
[2020-12-16] MEDS: MINERAL OIL/PET HY-PHL TOPICAL OINTMENT 454 GM JAR TP SCH (10:09)
[2020-12-16] MEDS: methylPREDNISolone NA SUCC 40 MG/1 ML VIAL IVPB SCH (10:09)
[2020-12-16 11:59] LABS: CALCIUM 8.3 mg/dL (8.5-10.1)
[2020-12-16 12:00] LABS: BLOOD UREA NITROGEN 4.8 mg/dL (7-18); MAGNESIUM 1.9 mg/dL (1.8-2.4)
[2020-12-16 12:03] LABS: CREATININE 0.2 mg/dL (0.55-1.3)
[2020-12-16] MEDS ORDERED: AZTREONAM 1 GM VIAL (RESTRICTED TO ID) ONE (14:15)
[2020-12-16] MEDS ORDERED: DEXTROSE 5%-WATER - 50 ML IVPB ONE (14:15)
[2020-12-16] MEDS: VANCOMYCIN 1 GRAM (PRE-DOCKED) 1,000 MG/250 ML BAG IVPB SCH (15:46)
[2020-12-16] MEDS: D5-1/2NS+20 MEQ KCL - 20 MEQ/1,000 ML INFUS.BAG IV SCH (18:18)
[2020-12-16] MEDS: NYSTATIN POWDER 100,000 UNITS/GM - 15 GM TOPICAL POWDER TP SCH (21:46)
[2020-12-17] MEDS ORDERED: DEXTROSE 5%-WATER - 50 ML IVPB ONE ×3 (00:47→23:38)
[2020-12-17] MEDS ORDERED: AZTREONAM 1 GM VIAL (RESTRICTED TO ID) ONE ×3 (00:47→23:38)
[2020-12-17] MEDS: AZTREONAM 1 GM in DEXTROSE 5%-WATER - 50 ML IVPB SCH ×2 (00:48→12:23)
[2020-12-17] MEDS: NYSTATIN POWDER 100,000 UNITS/GM - 15 GM TOPICAL POWDER TP SCH ×3 (06:21→21:13)
[2020-12-17] MEDS: D5-1/2NS+20 MEQ KCL - 20 MEQ/1,000 ML INFUS.BAG IV SCH ×3 (06:21→21:12)
[2020-12-17] MEDS: ALBUTEROL SO4 0.083% IH SOL 2.5 MG/3 ML VIAL.NEB. NEB SCH ×3 (07:55→20:10)
[2020-12-17] MEDS: COLLAGENASE CLOSTRIDIUM HIST. 30 GRAMS TUBE TP SCH (10:06)
[2020-12-17] MEDS: methylPREDNISolone NA SUCC 40 MG/1 ML VIAL IVPB SCH (10:06)
[2020-12-17] MEDS: MINERAL OIL/PET HY-PHL TOPICAL OINTMENT 454 GM JAR TP SCH (10:06)
[2020-12-17] MEDS: VANCOMYCIN 1 GRAM (PRE-DOCKED) 1,000 MG/250 ML BAG IVPB SCH (14:34)
[2020-12-18] MEDS: AZTREONAM 1 GM in DEXTROSE 5%-WATER - 50 ML IVPB SCH ×3 (00:04→23:55)
[2020-12-18] MEDS: NYSTATIN POWDER 100,000 UNITS/GM - 15 GM TOPICAL POWDER TP SCH ×3 (05:52→22:35)
[2020-12-18] MEDS: ALBUTEROL SO4 0.083% IH SOL 2.5 MG/3 ML VIAL.NEB. NEB SCH ×3 (08:20→20:21)
[2020-12-18] MEDS: methylPREDNISolone NA SUCC 40 MG/1 ML VIAL IVPB SCH (10:16)
[2020-12-18] MEDS: MINERAL OIL/PET HY-PHL TOPICAL OINTMENT 454 GM JAR TP SCH (10:17)
[2020-12-18] MEDS: D5-1/2NS+20 MEQ KCL - 20 MEQ/1,000 ML INFUS.BAG IV SCH ×3 (10:22→23:46)
[2020-12-18] MEDS ORDERED: AZTREONAM 1 GM VIAL (RESTRICTED TO ID) ONE ×2 (11:51→23:52)
[2020-12-18] MEDS ORDERED: DEXTROSE 5%-WATER - 50 ML IVPB ONE ×2 (11:52→23:52)
[2020-12-18] MEDS ORDERED: MORPHINE ORAL CONCENTRATE 20 MG/ML - 30ML BOTTLE PO SCH (12:45)
[2020-12-18] MEDS: VANCOMYCIN 1 GRAM (PRE-DOCKED) 1,000 MG/250 ML BAG IVPB SCH (14:06)
[2020-12-18] MEDS: COLLAGENASE CLOSTRIDIUM HIST. 30 GRAMS TUBE TP SCH (18:45)
[2020-12-19] MEDS: NYSTATIN POWDER 100,000 UNITS/GM - 15 GM TOPICAL POWDER TP SCH ×3 (06:09→23:29)
[2020-12-19] MEDS: ALBUTEROL SO4 0.083% IH SOL 2.5 MG/3 ML VIAL.NEB. NEB SCH ×3 (07:25→20:10)
[2020-12-19] MEDS: COLLAGENASE CLOSTRIDIUM HIST. 30 GRAMS TUBE TP SCH (09:23)
[2020-12-19] MEDS: MINERAL OIL/PET HY-PHL TOPICAL OINTMENT 454 GM JAR TP SCH (09:23)
[2020-12-19] MEDS: methylPREDNISolone NA SUCC 40 MG/1 ML VIAL IVPB SCH (09:23)
[2020-12-19] MEDS ORDERED: AZTREONAM 1 GM VIAL (RESTRICTED TO ID) ONE (12:16)
[2020-12-19] MEDS ORDERED: DEXTROSE 5%-WATER - 50 ML IVPB ONE (12:16)
[2020-12-19] MEDS: D5-1/2NS+20 MEQ KCL - 20 MEQ/1,000 ML INFUS.BAG IV SCH ×2 (12:22→23:28)
[2020-12-19] MEDS: AZTREONAM 1 GM in DEXTROSE 5%-WATER - 50 ML IVPB SCH (12:22)
[2020-12-19] MEDS: VANCOMYCIN 1 GRAM (PRE-DOCKED) 1,000 MG/250 ML BAG IVPB SCH (13:32)
[2020-12-20] MEDS: D5-1/2NS+20 MEQ KCL - 20 MEQ/1,000 ML INFUS.BAG IV SCH ×3 (02:59→23:44)
[2020-12-20] MEDS: ALBUTEROL SO4 0.083% IH SOL 2.5 MG/3 ML VIAL.NEB. NEB SCH ×3 (07:35→19:44)
[2020-12-20] MEDS: NYSTATIN POWDER 100,000 UNITS/GM - 15 GM TOPICAL POWDER TP SCH ×3 (08:20→21:06)
[2020-12-20 08:24] LABS: CHLORIDE 104 mmol/L (98-107); SODIUM 139 mmol/L (136-145)
[2020-12-20 08:30] LABS: ANION GAP 5 MMOL/L (8-16); CALCIUM 7.8 mg/dL (8.5-10.1); CO2 30 mmol/L (21-32); GLUCOSE,RANDOM 79 mg/dL (74-106)
[2020-12-20 08:34] LABS: CREATININE 0.2 mg/dL (0.55-1.3)
[2020-12-20 08:36] LABS: BLOOD UREA NITROGEN 2.6 mg/dL (7-18)
[2020-12-20] MEDS: MINERAL OIL/PET HY-PHL TOPICAL OINTMENT 454 GM JAR TP SCH (10:10)
[2020-12-20] MEDS: methylPREDNISolone NA SUCC 40 MG/1 ML VIAL IVPB SCH (10:10)
[2020-12-20] MEDS: COLLAGENASE CLOSTRIDIUM HIST. 30 GRAMS TUBE TP SCH (10:11)
[2020-12-20] MEDS: fentaNYL 12mcg/hr PATCH.TD72 TD SCH (13:36)
[2020-12-20] MEDS: VANCOMYCIN 1 GRAM (PRE-DOCKED) 1,000 MG/250 ML BAG IVPB SCH (13:36)
[2020-12-21] MEDS: NYSTATIN POWDER 100,000 UNITS/GM - 15 GM TOPICAL POWDER TP SCH ×3 (06:04→21:03)
[2020-12-21] MEDS: ALBUTEROL SO4 0.083% IH SOL 2.5 MG/3 ML VIAL.NEB. NEB SCH ×3 (07:43→19:43)
[2020-12-21] MEDS: COLLAGENASE CLOSTRIDIUM HIST. 30 GRAMS TUBE TP SCH (09:30)
[2020-12-21] MEDS: MINERAL OIL/PET HY-PHL TOPICAL OINTMENT 454 GM JAR TP SCH (09:30)
[2020-12-21] MEDS: methylPREDNISolone NA SUCC 40 MG/1 ML VIAL IVPB SCH (09:30)
[2020-12-21] MEDS: D5-1/2NS+20 MEQ KCL - 20 MEQ/1,000 ML INFUS.BAG IV SCH ×2 (14:30→17:52)
[2020-12-21] MEDS: VANCOMYCIN 1 GRAM (PRE-DOCKED) 1,000 MG/250 ML BAG IVPB SCH (15:03)
[2020-12-22] MEDS: NYSTATIN POWDER 100,000 UNITS/GM - 15 GM TOPICAL POWDER TP SCH ×3 (06:09→22:41)
[2020-12-22] MEDS: D5-1/2NS+20 MEQ KCL - 20 MEQ/1,000 ML INFUS.BAG IV SCH ×3 (06:09→22:42)
[2020-12-22] MEDS: ALBUTEROL SO4 0.083% IH SOL 2.5 MG/3 ML VIAL.NEB. NEB SCH ×3 (07:37→19:56)
[2020-12-22] MEDS: methylPREDNISolone NA SUCC 40 MG/1 ML VIAL IVPB SCH (10:02)
[2020-12-22] MEDS: MINERAL OIL/PET HY-PHL TOPICAL OINTMENT 454 GM JAR TP SCH (10:03)
[2020-12-22] MEDS: COLLAGENASE CLOSTRIDIUM HIST. 30 GRAMS TUBE TP SCH (10:04)
[2020-12-23] MEDS: NYSTATIN POWDER 100,000 UNITS/GM - 15 GM TOPICAL POWDER TP SCH ×3 (06:28→22:23)
[2020-12-23] MEDS: ALBUTEROL SO4 0.083% IH SOL 2.5 MG/3 ML VIAL.NEB. NEB SCH ×3 (07:55→19:41)
[2020-12-23] MEDS ORDERED: PT OWN MED DRAWER 7, Y5N ONE (10:25)
[2020-12-23] MEDS: methylPREDNISolone NA SUCC 40 MG/1 ML VIAL IVPB SCH (10:38)
[2020-12-23] MEDS: MINERAL OIL/PET HY-PHL TOPICAL OINTMENT 454 GM JAR TP SCH (10:38)
[2020-12-23] MEDS: COLLAGENASE CLOSTRIDIUM HIST. 30 GRAMS TUBE TP SCH (10:38)
[2020-12-23] MEDS: VANCOMYCIN 1 GRAM (PRE-DOCKED) 1,000 MG/250 ML BAG IVPB SCH (10:39)
[2020-12-23] MEDS: D5-1/2NS+20 MEQ KCL - 20 MEQ/1,000 ML INFUS.BAG IV SCH ×2 (12:49→22:43)
[2020-12-23] MEDS: fentaNYL 12mcg/hr PATCH.TD72 TD SCH (15:14)
[2020-12-23] MEDS: FENTANYL PATCH WASTE TD PRN (15:15)
[2020-12-24] MEDS: NYSTATIN POWDER 100,000 UNITS/GM - 15 GM TOPICAL POWDER TP SCH ×3 (05:58→21:11)
[2020-12-24] MEDS: ALBUTEROL SO4 0.083% IH SOL 2.5 MG/3 ML VIAL.NEB. NEB SCH ×2 (08:40→20:24)
[2020-12-24] MEDS: MINERAL OIL/PET HY-PHL TOPICAL OINTMENT 454 GM JAR TP SCH (09:41)
[2020-12-24] MEDS: methylPREDNISolone NA SUCC 40 MG/1 ML VIAL IVPB SCH (09:41)
[2020-12-24] MEDS: D5-1/2NS+20 MEQ KCL - 20 MEQ/1,000 ML INFUS.BAG IV SCH ×2 (11:54→21:11)
[2020-12-24] MEDS: COLLAGENASE CLOSTRIDIUM HIST. 30 GRAMS TUBE TP SCH (13:08)
[2020-12-25] MEDS: NYSTATIN POWDER 100,000 UNITS/GM - 15 GM TOPICAL POWDER TP SCH ×3 (04:59→21:16)
[2020-12-25] MEDS: ALBUTEROL SO4 0.083% IH SOL 2.5 MG/3 ML VIAL.NEB. NEB SCH ×2 (08:15→11:53)
[2020-12-25] MEDS: D5-1/2NS+20 MEQ KCL - 20 MEQ/1,000 ML INFUS.BAG IV SCH ×2 (12:12→14:43)
[2020-12-25] MEDS: methylPREDNISolone NA SUCC 40 MG/1 ML VIAL IVPB SCH (12:12)
[2020-12-25] MEDS: VANCOMYCIN 1 GRAM (PRE-DOCKED) 1,000 MG/250 ML BAG IVPB SCH (12:12)
[2020-12-25] MEDS: MINERAL OIL/PET HY-PHL TOPICAL OINTMENT 454 GM JAR TP SCH (12:13)
[2020-12-25] MEDS: COLLAGENASE CLOSTRIDIUM HIST. 30 GRAMS TUBE TP SCH (15:00)
[2020-12-26] MEDS: D5-1/2NS+20 MEQ KCL - 20 MEQ/1,000 ML INFUS.BAG IV SCH ×2 (02:02→14:08)
[2020-12-26] MEDS: NYSTATIN POWDER 100,000 UNITS/GM - 15 GM TOPICAL POWDER TP SCH ×3 (05:43→21:14)
[2020-12-26] MEDS: methylPREDNISolone NA SUCC 40 MG/1 ML VIAL IVPB SCH (10:08)
[2020-12-26] MEDS: MINERAL OIL/PET HY-PHL TOPICAL OINTMENT 454 GM JAR TP SCH (10:08)
[2020-12-26] MEDS: COLLAGENASE CLOSTRIDIUM HIST. 30 GRAMS TUBE TP SCH (10:11)
[2020-12-26] MEDS: fentaNYL 12mcg/hr PATCH.TD72 TD SCH (14:05)
[2020-12-26] MEDS: FENTANYL PATCH WASTE TD PRN (14:12)
[2020-12-27] MEDS: D5-1/2NS+20 MEQ KCL - 20 MEQ/1,000 ML INFUS.BAG IV SCH ×2 (04:00→21:14)
[2020-12-27] MEDS: NYSTATIN POWDER 100,000 UNITS/GM - 15 GM TOPICAL POWDER TP SCH ×3 (05:23→21:14)
[2020-12-27] MEDS: MINERAL OIL/PET HY-PHL TOPICAL OINTMENT 454 GM JAR TP SCH (09:41)
[2020-12-27] MEDS: COLLAGENASE CLOSTRIDIUM HIST. 30 GRAMS TUBE TP SCH (09:41)
[2020-12-27] MEDS: VANCOMYCIN 1 GRAM (PRE-DOCKED) 1,000 MG/250 ML BAG IVPB SCH (09:42)
[2020-12-27] MEDS: methylPREDNISolone NA SUCC 40 MG/1 ML VIAL IVPB SCH (09:42)
[2020-12-28] MEDS: NYSTATIN POWDER 100,000 UNITS/GM - 15 GM TOPICAL POWDER TP SCH ×3 (06:54→21:59)
[2020-12-28] MEDS: methylPREDNISolone NA SUCC 40 MG/1 ML VIAL IVPB SCH (09:21)
[2020-12-28] MEDS: MINERAL OIL/PET HY-PHL TOPICAL OINTMENT 454 GM JAR TP SCH (09:22)
[2020-12-28] MEDS: COLLAGENASE CLOSTRIDIUM HIST. 30 GRAMS TUBE TP SCH (09:22)
[2020-12-28] MEDS: D5-1/2NS+20 MEQ KCL - 20 MEQ/1,000 ML INFUS.BAG IV SCH ×2 (09:22→23:04)
[2020-12-29] MEDS: NYSTATIN POWDER 100,000 UNITS/GM - 15 GM TOPICAL POWDER TP SCH ×3 (05:44→22:19)
[2020-12-29] MEDS: COLLAGENASE CLOSTRIDIUM HIST. 30 GRAMS TUBE TP SCH (09:58)
[2020-12-29] MEDS: MINERAL OIL/PET HY-PHL TOPICAL OINTMENT 454 GM JAR TP SCH (09:58)
[2020-12-29] MEDS: methylPREDNISolone NA SUCC 40 MG/1 ML VIAL IVPB SCH (10:00)
[2020-12-29] MEDS: D5-1/2NS+20 MEQ KCL - 20 MEQ/1,000 ML INFUS.BAG IV SCH (10:05)
[2020-12-29] MEDS: VANCOMYCIN 1 GRAM (PRE-DOCKED) 1,000 MG/250 ML BAG IVPB SCH (13:39)
[2020-12-29] MEDS ORDERED: VANCOMYCIN 1 GRAM (PRE-DOCKED) 1,000 MG/250 ML BAG IVPB SCH (16:15)
[2020-12-30] MEDS: D5-1/2NS+20 MEQ KCL - 20 MEQ/1,000 ML INFUS.BAG IV SCH (03:21)
[2020-12-30 04:53] VITALS: BP 126/77; PULSE 66; TEMP 97.7
[2020-12-30] MEDS: NYSTATIN POWDER 100,000 UNITS/GM - 15 GM TOPICAL POWDER TP SCH ×2 (05:45→14:18)
[2020-12-30] MEDS: MINERAL OIL/PET HY-PHL TOPICAL OINTMENT 454 GM JAR TP SCH (10:35)
[2020-12-30] MEDS: methylPREDNISolone NA SUCC 40 MG/1 ML VIAL IVPB SCH (10:35)
[2020-12-30] MEDS: COLLAGENASE CLOSTRIDIUM HIST. 30 GRAMS TUBE TP SCH (10:36)
[2020-12-30 16:10] LABS: SARS-CoV-2 NAA Not Detected (Not Detected)
[2021-01-02] MEDS ORDERED: VANCOMYCIN 1 GRAM (PRE-DOCKED) 1,000 MG/250 ML BAG IVPB SCH (14:00)
== END 2020-12-30 18:11 | DRG 871 ==
LOC: JER 13:26 → JERBED 16:01 → J5S 12-08 19:50 → J8W 12-10 21:53
PROVIDERS: ADMIT Internal Medicine; ATTEND Internal Medicine
DX: A41.01 Sepsis due to Methicillin susceptible Staphylococcus aureus (principal); J69.0 Pneumonitis due to inhalation of food and vomit; L89.154 Pressure ulcer of sacral region, stage 4; L89.123 Pressure ulcer of left upper back, stage 3; R53.2 Functional quadriplegia; N39.0 Urinary tract infection, site not specified; E87.2 Acidosis; M62.82 Rhabdomyolysis; E87.0 Hyperosmolality and hypernatremia; J45.901 Unspecified asthma with (acute) exacerbation; R64 Cachexia; Z68.1 Body mass index [BMI] 19.9 or less, adult; L89.616 Pressure-induced deep tissue damage of right heel; D72.829 Elevated white blood cell count, unspecified; E86.0 Dehydration; R62.7 Adult failure to thrive; R13.10 Dysphagia, unspecified; F03.90 Unspecified dementia, unspecified severity, without behavioral disturbance, psychotic disturbance, mood disturbance, and anxiety; D50.9 Iron deficiency anemia, unspecified; E87.6 Hypokalemia
CPT/HCPCS: 36415; 36600; 71045-TC-FY; 80048; 80053; 81003; 82550; 82553; 82728; 82803; 82962; 83036; 83605; 83735; 84443; 84484; 85025; 85027; 85610; 85730; 86850; 86900; 86901; 87040; 87086; 87186; 87324; 87449; 93005; 93010; 94640; 99291; C9803; E0186; G0480; J0131; U0003; U0005